=== PATIENT | female | born 1940 | race Caucasian/White ===

== ENCOUNTER 2019-02-16 08:43 | Emergency (ER) | payer OTHER ==
--- OUTSIDE RECORDS SUMMARY | 2019-02-16 08:46 | XMS REPORT ---
:1940 Author Organization eClinicalWorks Care Team Providers Name Role Phone Cameron Zavala Provider Role Unavailable Allergies, Adverse Reactions, Alerts Substance Reaction Event Type N.K.D.A. Info Not Available Non Drug Allergy Problems Problem Type Condition Code Onset Dates Condition Status Assessment Asymptomatic postmenopausal state Z78.0 Active Assessment Screening for osteoporosis Z13.820 Active Assessment Screening for colon cancer Z12.11 Active Assessment Screening mammogram, encounter for Z12.31 Active Problem HTN, goal below 130/80 I10 Active Assessment Tobacco use disorder F17.200 Active Problem Current moderate episode of major F32.1 Active depressive disorder without prior episode Problem Insomnia, unspecified type G47.00 Active Problem Controlled type 2 diabetes mellitus E11.9 Active without complication, without long-term current use of insulin Problem History of fall Z91.81 Active Problem History of CVA (cerebrovascular Z86.73 Active accident) without residual deficits Assessment GERD without esophagitis K21.9 Active Assessment History of CVA (cerebrovascular Z86.73 Active accident) without residual deficits Problem Anxiety F41.9 Active Assessment Loss of balance R26.89 Active Problem Bipolar affective disorder, F31.9 Active remission status unspecified Problem Loss of balance R26.89 Active Problem Tobacco use disorder F17.200 Active Problem GERD without esophagitis K21.9 Active Assessment History of fall Z91.81 Active Assessment Bipolar affective disorder, F31.9 Active remission status unspecified Assessment Insomnia, unspecified type G47.00 Active Assessment Controlled type 2 diabetes mellitus E11.9 Active without complication, without long-term current use of insulin Assessment HTN, goal below 130/80 I10 Active Assessment Encounter for wellness examination Z00.00 Active in adult Assessment Anxiety F41.9 Active Assessment Current moderate episode of major F32.1 Active depressive disorder without prior episode Medications Medication Code Code Instructions Start End Status Dosage System Date Date Omeprazole [facility] 40186617383 20 MG Orally Active 1 capsule Once a day Lisinopril [facility] 17643046986 20 MG Orally Active 1 tablet Once a day Metoprolol [facility] 38872794632 25 MG Orally Active 1 tablet Tartrate Twice a day with food Fluoxetine HCl [facility] 88751211050 40 MG Orally Active 1 capsule Once a day Trazodone HCl [facility] 32384758016 100 MG Orally Active 2 tablet Once a day at bedtime Alprazolam [facility] 30976533867 1 MG Orally Active 1 tablet Three times a day Amlodipine [facility] 15193701068 10 MG Orally Active 1 tablet Besylate Once a day Clopidogrel [facility] 68437397172 75 MG Orally Active 1 tablet Bisulfate Once a day Results No Known Results Summary Purpose eClinicalWorks Submission
--- OUTSIDE RECORDS SUMMARY | 2019-02-16 08:46 | XMS REPORT ---
:1940 Author Organization eClinicalWorks Care Team Providers Name Role Phone Lee Ann Zavalah Provider Role Unavailable Allergies, Adverse Reactions, Alerts Substance Reaction Event Type N.K.D.A. Info Not Available Non Drug Allergy Problems Problem Type Condition Code Onset Dates Condition Status Problem Current moderate episode of major F32.1 Active depressive disorder without prior episode Problem Insomnia, unspecified type G47.00 Active Problem Controlled type 2 diabetes mellitus E11.9 Active without complication, without long-term current use of insulin Problem History of fall Z91.81 Active Assessment History of CVA (cerebrovascular Z86.73 Active accident) without residual deficits Problem History of CVA (cerebrovascular Z86.73 Active accident) without residual deficits Assessment Loss of balance R26.89 Active Assessment Tobacco use disorder F17.200 Active Problem Anxiety F41.9 Active Problem Bipolar affective disorder, F31.9 Active remission status unspecified Problem Loss of balance R26.89 Active Problem Tobacco use disorder F17.200 Active Problem GERD without esophagitis K21.9 Active Assessment Controlled type 2 diabetes mellitus E11.9 Active without complication, without long-term current use of insulin Assessment History of fall Z91.81 Active Assessment GERD without esophagitis K21.9 Active Assessment Insomnia, unspecified type G47.00 Active Assessment Current moderate episode of major F32.1 Active depressive disorder without prior episode Assessment HTN, goal below 130/80 I10 Active Assessment Bipolar affective disorder, F31.9 Active remission status unspecified Assessment Anxiety F41.9 Active Problem HTN, goal below 130/80 I10 Active Medications Medication Code Code Instructions Start End Status Dosage System Date Date Omeprazole ND 98187315875 20 MG Orally Active 1 capsule Once a day Metoprolol ND 03363742067 25 MG Orally Active 1 tablet Tartrate Twice a day with food Trazodone HCl ND 21808508544 100 MG Orally Active 2 tablet Once a day at bedtime Lisinopril ND 32098281199 20 MG Orally Active 1 tablet Once a day Amlodipine ND 34746883787 10 MG Orally Active 1 tablet Besylate Once a day Alprazolam [facility] 52205817566 1 MG Orally Active 1 tablet Three times a day Fluoxetine HCl [facility] 27327376281 40 MG Orally Active 1 capsule Once a day Clopidogrel [facility] 94375617115 75 MG Orally Active 1 tablet Bisulfate Once a day Results No Known Results Summary Purpose eClinicalWorks Submission
[2019-02-16 10:44] LABS: Absolute Lymphocytes (CBC) 1.1 K/uL (0.7-4.9); Basophils % 0.1 % (0-1.3); Hematocrit 39.9 % (36.0-45.0); Lymphocytes % 6.5 % (15.3-44.8); MPV 7.7 fL (7.6-11.3); RBC Red Blood Cell Count 4.55 M/uL (3.86-4.86)
[2019-02-16 11:14] LABS: Albumin 3.5 g/dL (3.4-5.0); Bilirubin Direct 4.3 mg/dL (0-0.2); Potassium 3.7 mmol/L (3.5-5.1); Protein, Total 8.4 g/dL (6.4-8.2)
--- NOTE | 2019-02-16 11:15 | RAD REPORT ---
EXAM DESCRIPTION: US - Abdomen Exam Limited - 02/16/2019 10:59 am CLINICAL HISTORY: Abdominal pain. COMPARISON: None. FINDINGS: Multiple small gallstones. Gallbladder wall measures approximately 3 millimeters. The gall bladder is distended. . The common bile duct was poorly visualized IMPRESSION: Cholelithiasis with borderline gallbladder wall thickening Gallbladder distention
[2019-02-16] MEDS ORDERED: ONDANSETRON 4 MG/2 ML VIAL ONE (11:21)
[2019-02-16] MEDS ORDERED: METRONIDAZOLE 500mg IVPB 500 MG/100 ML BAG IV ONE (11:21)
[2019-02-16] MEDS ORDERED: FENTANYL CITR 100 MCG/2 ML ONE (11:21)
--- NOTE | 2019-02-16 11:32 | EDPHYS ---
Physician Documentation [facility] Name: Juanis Pyle Age: 78 yrs Sex: Female : 1940 Arrival Date: 02/16/2019 Time: 08:45 Bed 23 Private MD: Cameron Zavala ED Physician Shahriar Aj HPI: 02/16 10:28 This 78 yrs old Female presents to ER via Wheelchair with complaints of jr8 Epigastric Pain, Back Pain. 10:28 The patient presents with abdominal pain in the epigastric area, in the right upper jr8 quadrant, in the left upper quadrant. Onset: The symptoms/episode began/occurred gradually, 1 week(s) ago, and became worse last night. The symptoms radiate to back. Associated signs and symptoms: Pertinent positives: urinary frequency, Pertinent negatives: nausea, vomiting, and diarrhea, constipation, dysuria, fever, hematuria. The symptoms are described as constant. Modifying factors: The symptoms are alleviated by nothing, the symptoms are aggravated by food. Severity of pain: At its worst the pain was moderate in the emergency department the pain is unchanged. The patient has not experienced similar symptoms in the past. The patient has been recently seen by a physician: Dr. Ponce (GI) with similar presenting complaints, but the patient's symptoms have worsened. Upper abdominal pain that radiates around both sides to back, described as "all the way around" x 1 week with decreased appetite. Reports pain has gradually worsened and is worse since eating a pork chop last night. Denies NVD or constipation. Reports urinary frequency but denies dysuria or hematuria. Patient was seen by GI previously and given an unknown medication that the patient did not take. She is awaiting clearance from neurology (due to previous stroke history) for colonoscopy. Historical: - Allergies: 09:06 No Known Allergies; hb - Home Meds: 10:20 alprazolam 1 mg Oral tab 1 tab 3 times per day [Active]; amlodipine 10 mg tab 1 tab tw2 once daily [Active]; Centrum Silver 400-250 mcg oral chew [Active]; clopidogrel 75 mg oral tab 1 tab once daily [Active]; Excedrin Extra Strength 250-250-65 mg oral tab [Active]; fluoxetine 40 mg Oral cap 1 cap once daily [Active]; lisinopril 10 mg Oral tab 1 tab once daily [Active]; metoprolol succinate-hydrochlorothiazide oral 25 mg/12.5 mg oral 1 tab once daily [Active]; Fish Oil 500 mg oral cpDR [Active]; omeprazole 20 mg Oral cpDR 1 cap once daily [Active]; trazodone 100 mg Oral tab 1 tab 3 times per day [Active]; - PMHx: 10:20 Hypertension; CVA; tw2 - Immunization history:: Adult Immunizations up to date. - Social history:: Smoking status: Patient/guardian denies using tobacco. - Ebola Screening: : No symptoms or risks identified at this time. ROS: 10:28 Constitutional: Negative for fever, chills, and weight loss, Eyes: Negative for injury, jr8 pain, redness, and discharge, ENT: Negative for injury, pain, and discharge, Cardiovascular: Negative for chest pain, palpitations, and edema, Respiratory: Negative for shortness of breath, cough, wheezing, and pleuritic chest pain, MS/Extremity: Negative for injury and deformity, Skin: Negative for injury, rash, and discoloration, Neuro: Negative for headache, weakness, numbness, tingling, and seizure. 10:28 Abdomen/GI: Positive for abdominal pain, anorexia, Negative for nausea, vomiting, and diarrhea, constipation. 10:28 Back: Positive for radiated pain, Negative for flank pain. 10:28 : Positive for urinary frequency, small amounts, Negative for hematuria, pelvic pain, flank pain, burning with urination, difficulty urinating, foul smelling urine. Exam: 10:28 Constitutional: This is a well developed, well nourished patient who is awake, alert, jr8 and in no acute distress. Head/Face: Normocephalic, atraumatic. Cardiovascular: Regular rate and rhythm with a normal S1 and S2. No gallops, murmurs, or rubs. Normal PMI, no JVD. No pulse deficits. Respiratory: Lungs have equal breath sounds bilaterally, clear to auscultation and percussion. No rales, rhonchi or wheezes noted. No increased work of breathing, no retractions or nasal flaring. Skin: Warm, dry with normal turgor. Normal color with no rashes, no lesions, and no evidence of cellulitis. MS/ Extremity: Pulses equal, no cyanosis. Neurovascular intact. Full, normal range of motion. Neuro: Awake and alert, GCS 15, oriented to person, place, time, and situation. Motor strength 5/5 in all extremities. Sensory grossly intact. 10:28 Abdomen/GI: Inspection: abdomen appears normal, Bowel sounds: normal, Palpation: soft, in all quadrants, moderate abdominal tenderness, in the epigastric area and right upper quadrant, no appreciated organomegaly, Indicators: Gutierrez's sign is positive. 10:28 Back: Exam negative for CVA tenderness, vertebral tenderness. 10:28 Psych: Behavior/mood is cooperative, Affect is flat. Vital Signs: 09:05 BP 110 / 57; Pulse 80; Resp 16; Temp 97.9; Pulse Ox 100% on R/A; Weight 77.11 kg; hb Height 5 ft. 1 in. (154.94 cm); Pain 10/10; 10:14 BP 140 / 73; Pulse 68; Resp 17; Pulse Ox 95% on R/A; tw2 11:29 BP 104 / 79; Pulse 71; Resp 17; Pulse Ox 95% on R/A; tw2 12:16 BP 135 / 79; Pulse 69; Resp 17; Pulse Ox 95% on R/A; Pain 8/10; tw2 13:20 BP 111 / 61; Pulse 70; Resp 17; Pulse Ox 97% on R/A; Pain 6/10; tw2 09:05 Body Mass Index 32.12 (77.11 kg, 154.94 cm) hb MDM: 10:14 Patient medically screened. [facility] 11:30 Data reviewed: vital signs, nurses notes, lab test result(s), radiologic studies, [facility] ultrasound. Data interpreted: Pulse oximetry: on room air is 95 %. Interpretation: normal. Counseling: I had a detailed discussion with the patient and/or guardian regarding: the historical points, exam findings, and any diagnostic results supporting the discharge/admit diagnosis, lab results, the need to transfer to another facility, [facility] does not immediately have the required specialist. 02/16 10:28 Order name: Basic Metabolic Panel; Complete Time: 11:16 8 02/16 10:28 Order name: CBC with Diff; Complete Time: 12:54 8 02/16 10:28 Order name: Creatinine for Radiology; Complete Time: 11:13 02/16 10:28 Order name: Hepatic Function; Complete Time: 11:16 02/16 10:28 Order name: Lipase; Complete Time: 11:16 02/16 12:44 Order name: Manual Differential; Complete Time: 12:54 EDMS 02/16 09:58 Order name: EKG; Complete Time: 09:58 ss 02/16 10:28 Order name: US Abdomen Limited; Complete Time: 11:16 02/16 09:58 Order name: EKG - Nurse/Tech; Complete Time: 10:14 ss 02/16 10:28 Order name: IV Saline Lock; Complete Time: 10:48 02/16 10:28 Order name: Labs collected and sent; Complete Time: 10:48 02/16 11:57 Order name: NPO; Complete Time: 12:02 Administered Medications: 11:24 Drug: Zofran 4 mg Route: IVP; Site: left forearm; tw2 12:04 Follow up: Response: No adverse reaction tw2 11:26 Drug: fentaNYL (PF) 25 mcg Route: IVP; Site: right forearm; tw2 12:04 Follow up: Response: No adverse reaction; Pain is unchanged, physician notified tw2 11:28 Drug: Flagyl 500 mg Volume: 100 ml; Route: IVPB; Rate: 200 ml/hr; Infused Over: 30 tw2 mins; Site: right forearm; 11:53 Follow up: Response: No adverse reaction; IV Status: Completed infusion tw2 11:55 Drug: Mefoxin 1 grams Route: IVPB; Infused Over: 5 mins; Site: left forearm; tw2 12:03 Follow up: Response: No adverse reaction; No adverse reaction, IVP available only from tw2 pharmacy; IV Status: Completed infusion 12:10 Drug: fentaNYL (PF) 50 mcg Route: IVP; Site: left forearm; tw2 12:45 Follow up: Response: No adverse reaction; Pain is decreased tw2 13:55 Drug: fentaNYL (PF) 25 mcg Route: IVP; Site: left forearm; tw2 13:57 Follow up: Response: No adverse reaction; Pain is decreased tw2 Disposition: 14:21 Co-signature as Attending Physician, Shahriar Aj MD I agree with the assessment and kdr plan of care. Disposition: 02/16/19 11:31 Transfer ordered to [facility]. Diagnosis are Cholelithiasis, Cholecystitis, Choledocholithiasis. - Reason for transfer: Higher level of care. - Accepting physician is [facility]. - Condition is Stable. - Problem is new. - Symptoms are unchanged. Signatures: Dispatcher [employer] EDMS Shahriar Aj MD MD [facility] Anna Brady RN RN Charles Garcia PA PA jr8 Kamila Randall RN RN Alessia Anaya RN RN tw2 Corrections: (The following items were deleted from the chart) 13:59 11:31 02/16/2019 11:31 Transfer ordered to [facility]. Diagnosis is tw2 Cholelithiasis; Cholecystitis; Choledocholithiasis. Reason for transfer: Higher level of care. Accepting physician is [facility]. Condition is Stable. Problem is new. Symptoms are unchanged. jr8
--- NOTE | 2019-02-16 11:32 | ER ---
Nurse's Notes [facility] Name: Juanis Pyle Age: 78 yrs Sex: Female : 1940 Arrival Date: 02/16/2019 Time: 08:45 Bed 23 Private MD: Cameron Zavala Diagnosis: Cholelithiasis;Cholecystitis;Choledocholithiasis Presentation: 02/16 09:04 Presenting complaint: Upper abdominal pain x 2 weeks, worse over last 2 days, N/V hb today. Denies fever. Transition of care: patient was not received from another setting of care. Onset of symptoms is unknown. Risk Assessment: Do you want to hurt yourself or someone else? Patient reports no desire to harm self or others. Initial Sepsis Screen: Does the patient meet any 2 criteria? No. Patient's initial sepsis screen is negative. Does the patient have a suspected source of infection? No. Patient's initial sepsis screen is negative. Care prior to arrival: None. 09:04 Method Of Arrival: Wheelchair hb 09:04 Acuity: DAVID 3 hb Historical: - Allergies: 09:06 No Known Allergies; hb - Home Meds: 10:20 alprazolam 1 mg Oral tab 1 tab 3 times per day [Active]; amlodipine 10 mg tab 1 tab tw2 once daily [Active]; Centrum Silver 400-250 mcg oral chew [Active]; clopidogrel 75 mg oral tab 1 tab once daily [Active]; Excedrin Extra Strength 250-250-65 mg oral tab [Active]; fluoxetine 40 mg Oral cap 1 cap once daily [Active]; lisinopril 10 mg Oral tab 1 tab once daily [Active]; metoprolol succinate-hydrochlorothiazide oral 25 mg/12.5 mg oral 1 tab once daily [Active]; Fish Oil 500 mg oral cpDR [Active]; omeprazole 20 mg Oral cpDR 1 cap once daily [Active]; trazodone 100 mg Oral tab 1 tab 3 times per day [Active]; - PMHx: 10:20 Hypertension; CVA; tw2 - Immunization history:: Adult Immunizations up to date. - Social history:: Smoking status: Patient/guardian denies using tobacco. - Ebola Screening: : No symptoms or risks identified at this time. Screenin:07 Abuse screen: Denies threats or abuse. Nutritional screening: No deficits noted. tw2 Tuberculosis screening: No symptoms or risk factors identified. Fall Risk None identified. Assessment: 10:20 General: Appears uncomfortable, Behavior is calm, cooperative, appropriate for age, tw2 quiet. Pain: Complains of pain in abdomen. Neuro: Level of Consciousness is awake, alert, obeys commands, Oriented to person, place, time, situation. Cardiovascular: Heart tones S1 S2 Patient's skin is warm and dry. Respiratory: Airway is patent Respiratory effort is even, unlabored, Respiratory pattern is regular, symmetrical, Breath sounds are clear bilaterally. GI: Abdomen is flat, Bowel sounds present X 4 quads. Abd is soft X 4 quads Reports lower abdominal pain, upper abdominal pain, nausea, Parent/caregiver reports the patient having "not constipation but she just goes a little bit every day, i have been giving her miralax to help, and she was supposed to have a colonoscopy but we need to get to the medication specialist for clearance before they will do it". : No signs and/or symptoms were reported regarding the genitourinary system. EENT: No signs and/or symptoms were reported regarding the EENT system. Derm: No signs and/or symptoms reported regarding the dermatologic system. Musculoskeletal: Range of motion: intact in all extremities. 11:29 Reassessment: No changes from previously documented assessment. Patient and/or family tw2 updated on plan of care and expected duration. Pain level reassessed. Patient is alert, oriented x 3, equal unlabored respirations, skin warm/dry/pink. 12:17 Reassessment: No changes from previously documented assessment. Patient and/or family tw2 updated on plan of care and expected duration. Pain level reassessed. Patient is alert, oriented x 3, equal unlabored respirations, skin warm/dry/pink. 13:20 Reassessment: Patient appears in no apparent distress at this time. Patient and/or tw2 family updated on plan of care and expected duration. Pain level reassessed. Patient is alert, oriented x 3, equal unlabored respirations, skin warm/dry/pink. Patient states feeling better. 13:58 Reassessment: Patient appears in no apparent distress at this time. No changes from tw2 previously documented assessment. Patient and/or family updated on plan of care and expected duration. Pain level reassessed. Patient is alert, oriented x 3, equal unlabored respirations, skin warm/dry/pink. Vital Signs: 09:05 BP 110 / 57; Pulse 80; Resp 16; Temp 97.9; Pulse Ox 100% on R/A; Weight 77.11 kg; hb Height 5 ft. 1 in. (154.94 cm); Pain 10/10; 10:14 BP 140 / 73; Pulse 68; Resp 17; Pulse Ox 95% on R/A; tw2 11:29 BP 104 / 79; Pulse 71; Resp 17; Pulse Ox 95% on R/A; tw2 12:16 BP 135 / 79; Pulse 69; Resp 17; Pulse Ox 95% on R/A; Pain 8/10; tw2 13:20 BP 111 / 61; Pulse 70; Resp 17; Pulse Ox 97% on R/A; Pain 6/10; tw2 09:05 Body Mass Index 32.12 (77.11 kg, 154.94 cm) hb ED Course: 08:45 Patient arrived in ED. as 08:46 Cameron Zavala DO is Private Physician. as 09:05 Triage completed. hb 09:05 Arm band placed on. hb 10:07 Alessia Anaya, TICO is Primary Nurse. tw2 10:07 Bed in low position. Call light in reach. Side rails up X 1. Adult w/ patient. Cardiac tw2 monitor on. Pulse ox on. NIBP on. 10:13 Charles Garcia PA is PHCP. jr8 10:13 Shahriar Aj MD is Attending Physician. jr8 10:19 EKG done, by telemetry technician. reviewed by Shahriar Aj MD. sm3 10:25 Inserted saline lock: 22 gauge in left forearm, using aseptic technique. Blood tw2 collected. 10:59 US Abdomen Limited In Process Unspecified. EDMS 11:22 initiated transfer with Aileen at the [facility]. eb 11:[address] Rosenberg the GI demonstrator knitting for [facility] with Charles WEINBERG for patient transfer eb consultation. 12:02 connected the hospitalist demonstrator knitting for [facility] Dr. Pacheco with Charles WEINBERG for eb patient transfer consultation. 12:13 administrative approval given by Aileen Hassan RN/ patient has been accepted to [facility] Bed 1527/ Tara Blancas has accepted the patient in transfer/ report to be called to [phone]. 13:58 No provider procedures requiring assistance completed. Patient transferred, IV remains tw2 in place. Administered Medications: 11:24 Drug: Zofran 4 mg Route: IVP; Site: left forearm; tw2 12:04 Follow up: Response: No adverse reaction tw2 11:26 Drug: fentaNYL (PF) 25 mcg Route: IVP; Site: right forearm; tw2 12:04 Follow up: Response: No adverse reaction; Pain is unchanged, physician notified tw2 11:28 Drug: Flagyl 500 mg Volume: 100 ml; Route: IVPB; Rate: 200 ml/hr; Infused Over: 30 tw2 mins; Site: right forearm; 11:53 Follow up: Response: No adverse reaction; IV Status: Completed infusion tw2 11:55 Drug: Mefoxin 1 grams Route: IVPB; Infused Over: 5 mins; Site: left forearm; tw2 12:03 Follow up: Response: No adverse reaction; No adverse reaction, IVP available only from tw2 pharmacy; IV Status: Completed infusion 12:10 Drug: fentaNYL (PF) 50 mcg Route: IVP; Site: left forearm; tw2 12:45 Follow up: Response: No adverse reaction; Pain is decreased tw2 13:55 Drug: fentaNYL (PF) 25 mcg Route: IVP; Site: left forearm; tw2 13:57 Follow up: Response: No adverse reaction; Pain is decreased tw2 Outcome: 11:31 ER care complete, transfer ordered by MD. grady 13:58 Transferred by ground EMS to [facility], Note: report to TICO Arreguin tw2 13:58 Condition: stable 13:58 Instructed on the need for transfer. 13:59 Patient left the ED. tw2 Signatures: Dispatcher [employer] Paola Bishop Josh, PA PA jr8 Kamila Randall, TICO DOSHI Alessia Anaya RN RN tw2 Sun Romero Shakira 3
[2019-02-16] MEDS ORDERED: CEFOXITIN/SWI 1gm 1 GM/10 ML SYR IV ONE (11:45)
[2019-02-16 12:45] LABS: Platelet Estimate ADEQ
[2019-02-16 12:53] LABS: Blood Morphology Comment NOT SEEN (NOT SEEN)
--- NOTE | 2019-02-16 13:00 | EKG ---
Test Date: 2019-02-16 Test Time: 10:10:31 Washtub Worker Helper: KAVYA MEASUREMENT RESULTS: Intervals: Rate: 70 HI: 228 QRSD: 86 QT: 416 QTc: 449 Cushman: P: 54 HI: 228 QRS: -21 T: 72 INTERPRETIVE STATEMENTS: Sinus rhythm with 1st degree AV block Otherwise normal ECG No previous ECG available for comparison Electronically Signed On 02-16-19 12:59:38 CDT by Selvin Lewis
== END 2019-02-16 13:59 | disposition short-term general hospital (02) ==
LOC: ER 08:43
DX: K80.10 Calculus of gallbladder with chronic cholecystitis without obstruction (principal); K80.40 Calculus of bile duct with cholecystitis, unspecified, without obstruction; I10 Essential (primary) hypertension; Z86.73 Personal history of transient ischemic attack (TIA), and cerebral infarction without residual deficits
CPT/HCPCS: 93005; 85025; 80048; 36415; 80076; 83690; 76705; 99285; J3010; J2405

== ENCOUNTER 2020-01-25 11:07 | Emergency (ER) | payer OTHER ==
--- OUTSIDE RECORDS SUMMARY | 2020-01-25 12:08 | XMS REPORT | Clinical Summary ---
:1940 Author Organization [facility] Address [address] [place] [address] Care Team Providers Name Role Phone Unavailable Primary Care Provider Unavailable Allergies No Known Allergies Medications Medication Sig Dispensed Refills Start Date End Date Status omeprazole (PRILOSEC) Take 20 mg by 12/28/2018 Active 20 MG capsule mouth daily. ALPRAZolam (XANAX) 1 Take 1 mg by 02/01/2019 Active MG tablet mouth 3 (three) times daily. traZODone (DESYREL) Take 100 mg by 01/30/2019 Active 100 MG tablet mouth nightly. metoprolol Take 25 mg by 0 01/28/2019 Acti ve (LOPRESSOR) 25 MG mouth 2 (two) tablet times daily with breakfast and dinner. amLODIPine (NORVASC) Take 10 mg by 0 01/24/2019 Active 10 MG tablet mouth daily. FLUoxetine (PROZAC) Take 80 mg by 01/30/2019 Active 40 MG capsule mouth every morning. lisinopril Take 20 mg by 3 01/27/2019 Acti ve (PRINIVIL,ZESTRIL) 20 mouth daily. MG tablet clopidogrel (PLAVIX) Take 75 mg by 0 02/06/2019 Active 75 mg tablet mouth daily. ondansetron Take 1 tablet (4 20 tablet 0 02/21/2019 02/28/2019 (ZOFRAN-ODT) 4 MG mg total) by disintegrating tablet mouth every 8 (eight) hours as needed for up to 7 days. polyethylene glycol Take 17 g by 14 each 0 02/21/20192018 (GLYCOLAX) 17 gram mouth daily as packet needed (Constipation) for up to 3 days. traMADol (ULTRAM) 50 Take 1 tablet 30 tablet 0 02/21/201902/16 mg tablet (50 mg total) by mouth every 6 (six) hours as needed for up to 10 days. Max Daily Amount: 200 mg Active Problems Problem Noted Date Gall bladder stones 02/16/2019 Encounters Date Type Specialty Care Team Description 02/20/2019 Surgery Marie Green,CH CHRISTINA Toussaint MD YSTECTOMY 02/20/2019 Anesthesia Event Solitario Vieira MD 02/17/2019 Anesthesia Event Gastroenterology Eliazar Leonardo MD 02/17/2019 Surgery Gastroenterology Tab Strickland ERCP M. 02/16/2019 - Hospital Encounter General Internal Gadicherla, Gall bladder stones; 02/21/2019 Medicine Saundra Gallstone pancr eatitis; Muralinath, Cholangitis Messi Keene MD after 01/24/2019 Social History Tobacco Use Types Packs/Day Years Used Date Never Assessed Sex Assigned at Date Recorded Not on file Job Start Date Occupation Industry Not on file Not on file Not on file Travel History Travel Start Travel End No recent travel history available. Last Filed Vital Signs Vital Sign Reading Time Taken Blood Pressure 138/65 02/21/2019 8:44 AM CDT Pulse 87 02/21/2019 8:44 AM CDT Temperature 36.3 C (97.4 F) 02/21/2019 8:44 AM CDT Respiratory Rate 17 02/21/2019 8:44 AM CDT Oxygen Saturation 92% 02/21/2019 8:44 AM CDT Inhaled Oxygen Concentration - - Weight - - Height - - Body Mass Index - - Plan of Treatment Not on file Procedures Procedure Name Priority Date/Time Associated Diagnosis Comme nts REPORT OF PROCEDURE - 02/22/2019 11:10 ENDOSCOPY SCAN AM CDT RHYTHM STRIP - SCAN 02/22/2019 11:10 AM CDT TRANSFUSION SERVICE 02/21/2019 6:00 REPORT - SCAN PM CDT CBC W/PLT COUNT & Routine 02/21/2019 5:38 Result s for this AUTO DIFFERENTIAL AM CDT procedure are in the results section. HEPATIC FUNCTION Routine 02/21/2019 5:38 Results for this PANEL AM CDT procedure are i n the results section. BASIC METABOLIC PANEL Routine 02/21/2019 5:38 Re sults for this (7) AM CDT procedure are i n the results section. CBC W/PLT COUNT & Routine 02/21/2019 5:38 Result s for this AUTO DIFFERENTIAL AM CDT procedure are in the results section. TISSUE EXAM AP Routine 02/20/2019 2:48 Results for this PM CDT procedure are i n the results section. LAPAROSCOPY,CHOLECYST 02/20/2019 2:21 Gall stone ECTOMY PM CDT pancreatitis ABORH, MANUAL STAT 02/20/2019 6:36 Results fo r this AM CDT procedure are i n the results section. TYPE AND SCREEN, Routine 02/20/2019 5:56 Results for this AUTOMATED AM CDT procedure are i n the results section. COMPREHENSIVE Routine 02/20/2019 5:56 Results fo r this METABOLIC PANEL AM CDT procedure ar e in the results section. CBC W/PLT COUNT & Routine 02/19/2019 5:25 Result s for this AUTO DIFFERENTIAL AM CDT procedure are in the results section. COMPREHENSIVE Routine 02/19/2019 5:25 Results fo r this METABOLIC PANEL AM CDT procedure ar e in the results section. CBC W/PLT COUNT & Routine 02/19/2019 5:25 Result s for this AUTO DIFFERENTIAL AM CDT procedure are in the results section. COMPREHENSIVE Routine 02/18/2019 1:40 Results fo r this METABOLIC PANEL PM CDT procedure ar e in the results section. CBC W/PLT COUNT & Routine 02/18/2019 5:20 Result s for this AUTO DIFFERENTIAL AM CDT procedure are in the results section. CBC W/PLT COUNT & Routine 02/18/2019 5:20 Result s for this AUTO DIFFERENTIAL AM CDT procedure are in the results section. REPORT OF PROCEDURE - 02/17/2019 3:46 ENDOSCOPY URL PM CDT ERCP,BALLOON SWEEPING 02/17/2019 2:00 Cholangitis PM CDT Special Needs REQ:TF PROCEDURE W/ C-ARM 02/17/2019 2:00 PM CDT Cholangitis Special Needs REQ:TF ERCP 02/17/2019 2:00 PM CDT Cholangitis Special Needs REQ:TF URINALYSIS W/ REFLEX URINE STAT 02/17/2019 7:16 AM CDT Results for this CULTURE procedure are i n the results section . CBC W/PLT COUNT & AUTO Routine 02/17/2019 5:39 AM CDT Results for this DIFFERENTIAL procedure are i n the results section . CBC W/PLT COUNT & AUTO Routine 02/17/2019 5:39 AM CDT Results for this DIFFERENTIAL procedure are i n the results section . COMPREHENSIVE METABOLIC Routine 02/17/2019 5:39 AM CDT Results for this PANEL procedure are i n the results section . CT ABDOMEN/PELVIS WITH IV STAT 02/16/2019 10:33 PM CDT Results for this CONTRAST procedure are i n the results section . CBC W/PLT COUNT & AUTO STAT 02/16/2019 5:31 PM CDT Results for this DIFFERENTIAL procedure are i n the results section . LIPASE STAT 02/16/2019 5:31 PM CDT Resu lts for this procedure are i n the results section . B-TYPE NATRIURETIC FACTOR STAT 02/16/2019 5:31 PM CDT Results for this (BNP) procedure are i n the results section . COMPREHENSIVE METABOLIC STAT 02/16/2019 5:31 PM CDT Results for this PANEL procedure are i n the results section . CBC W/PLT COUNT & AUTO STAT 02/16/2019 5:31 PM CDT Results for this DIFFERENTIAL procedure are i n the results section . BLOOD CULTURE STAT 02/16/2019 5:30 PM CDT Res ults for this procedure are i n the results section . after 01/24/2019 Results EKG-SCANNED (02/22/2019 11:10 AM CDT) Narrative Performed At This result has an attachment that is no t available. RHYTHM STRIP - SCAN (02/22/2019 11:10 AM CDT) Narrative Performed At This result has an attachment that is no t available. TRANSFUSION SERVICE REPORT - SCAN (02/21/2019 6:00 PM CDT) Narrative Performed At This result has an attachment that is no t available. CBC with platelet count + automated diff (02/21/2019 5:38 AM CDT)Only the most recent of5 resultswithin the time period is included. WBC 13.4 (H) 3.5 - 10.5 K/L [facility] RBC 3.88 (L) 3.93 - 5.22 M/L [facility] Hemoglobin 11.3 11.2 - 15.7 GM/DL [facility] Hematocrit 36.4 34.1 - 44.9 % [facility] MCV 93.8 79.4 - 94.8 fL [facility] MCH 29.1 25.6 - 32.2 pg [facility] MCHC 31.0 (L) 32.2 - 35.5 GM/DL [facility] RDW 16.6 (H) 11.7 - 14.4 % [facility] Platelets 333 150 - 450 K/CU MM [facility] MPV 9.1 (L) 9.4 - 12.[address] [facility] nRBC 0 0 - 0 /100 WBC [facility] % Neutros 66 % [facility] % Lymphs 25 % [facility] % Monos 6 % [facility] AL[facility] % Eos 2 % [facility] ALTH [facility] % Baso 1 % [facility] # Neutros 8.85 (H) 1.56 - 6.13 K/L [facility] # Lymphs 3.29 1.18 - 3.74 K/L [facility] # Monos 0.82 (H) 0.24 - 0.36 K/L [facility] # Eos 0.24 0.04 - 0.36 K/L [facility] # Baso 0.07 0.01 - 0.08 K/L [facility] Immature Granulocytes-Relative 1 0 - 1 % C [facility] Specimen Blood Performing Organization Address City/State/Zipcode Phone Number [facility] [address] [place] [address] CENTER Hepatic function panel (02/21/2019 5:38 AM CDT) Protein, Total 6.5 6.0 - 8.3 gm/dL [facility] AL[facility] Albumin 3.3 (L) 3.5 - 5.0 g/dL [facility] Total Bilirubin 1.6 (H) 0.2 - 1.2 mg/dL [facility] Bilirubin, Direct 1.2 (H) 0.1 - 0.5 mg/dL [facility] Alkaline Phosphatase 365 (H) 40 - 150 U/L [facility] AST 63 (H) 5 - 34 U/L [facility] ALT 94 (H) 6 - 55 U/L [facility] Specimen Blood Performing Organization Address City/[facility]/Zipcode Phone Number [facility] [address] [place] [address] CENTER Basic Metabolic Panel (02/21/2019 5:38 AM CDT) Sodium 138 136 - 145 meq/L [facility] Potassium 3.8 3.5 - 5.1 meq/L [facility] Chloride 102 98 - 107 meq/L [facility] ALTH [facility] CO2 28 22 - 29 meq/L [facility] BUN 6 (L) 7 - 21 mg/dL [facility] Creatinine 0.63 0.57 - 1.25 mg/dL [facility] Glucose 104 70 - 105 mg/dL [facility] Calcium 8.6 8.4 - 10.2 mg/dL [facility] EGFR 92Comment: ESTIMATED GFR IS mL/min/1.73 sq m [facility] NOT ACCURATE CREATININE [facility] CLEARANCE IN PREDICTING GLOMERULAR FILTRATION RATE. ESTIMATED GFR IS NOT APPLICABLE FOR DIALYSIS PATIENTS. Specimen Blood Performing Organization Address City/[facility]/Zipcode Phone Number [facility] [address] [place] [address] [place] Tissue Exam (02/20/2019 2:48 PM CDT) Case Report Surgical Pathology Report Case: [id number] [facility] Authorizing Provider:Marie Benavidez MD Collected: 02/20/2019 1448 [facility] Ordering Location: [facility] Received:02/21/2019 1406 SERVICES Pathologist: Mignon Winter MD Specimen:Gallbladder DIAGNOSIS GALLBLADDER, CHOLECYSTECTOMY: CH I [facility] - CHRONIC CHOLECYSTITIS AND CHOLELITHIASIS [facility] - ONE BENIGN LYMPH NODE Signing Pathologist Direct Phone Line: CPT Code(s) [address] [facility] ALTH [facility] ER CLINICAL HISTORY Gallstone pancreatitis [facility] SPECIMEN SOURCE GALLBLADDER [facility] ALTH [facility] ER GROSS DESCRIPTION Received in formalin labeled C [facility] "gallbladder" consists of a [facility] 9.5 x 3 x 1.5 cm previously intact gallbladder with a 0.8 x 0.4 cm cystic duct. The serosa is hirsch-pink, hyperemic, and smooth with prominent vessels and a partially cauterized area. The serosa along the fundus shows fibrinopurulent patchy exudate. The specimen is opened to show hirsch-pink and velvety mucosa with approximately 5 cc of bile and 1 cm aggregate of multiple small black gallstones. The wall thickness is 0.1 cm. The specimen is serially sectioned, and no lesions are grossly identified. Painting Technician sections along with the cystic duct margin and one lymph node are submitted in cassettes A1-A2. TH/ew MICROSCOPIC DESCRIPTION Performed. [facility] ER Specimen Tissue Performing Organization Address City/State/Zipcode Phone Number [address] [address] CENTER ABORH, manual (02/20/2019 6:36 AM CDT) ABO Grouping O [facility] Rh Factor POS [facility] Specimen Blood Performing Organization Address City/State/Zipcode Phone Number [place] [phone] Type and screen, automated (02/20/2019 5:56 AM CDT) ABO/RH AUTOMATED (BEAKER) O POSITIVE [facility] Ab Scrn NEGATIVE [facility] Specimen Blood Performing Organization Address City/State/Zipcode Phone Number [facility] [address] [place] [address] Comprehensive metabolic panel (02/20/2019 5:56 AM CDT)Only the most recent of5 resultswithin the time period is included. Protein, Total 7.3 6.0 - 8.3 gm/dL [facility] Albumin 3.6 3.5 - 5.0 g/dL [facility] Alkaline Phosphatase 457 (H) 40 - 150 U/L [facility] Total Bilirubin 1.8 (H) 0.2 - 1.2 mg/dL [facility] Sodium 139 136 - 145 meq/L [facility] ER Potassium 4.0 3.5 - 5.1 meq/L [facility] ER Chloride 100 98 - 107 meq/L [facility] ALTH [facility] CO2 30 (H) 22 - 29 meq/L [facility] BUN 6 (L) 7 - 21 mg/dL [facility] HE ALTH [facility] ER Creatinine 0.71 0.57 - 1.25 mg/dL [facility] Glucose 116 (H) 70 - 105 mg/dL [facility] Calcium 9.5 8.4 - 10.2 mg/dL [facility] AST 71 (H) 5 - 34 U/L [facility] ALT 113 (H) 6 - 55 U/L [facility] ER EGFR 80Comment: ESTIMATED GFR mL/min/1.73 sq m [facility] IS NOT ACCURATE [facility] CREATININE CLEARANCE IN PREDICTING GLOMERULAR FILTRATION RATE. ESTIMATED GFR IS NOT APPLICABLE FOR DIALYSIS PATIENTS. Specimen Blood Performing Organization Address [facility] Phone Number [facility] [address] [place] [phone] [place] REPORT OF PROCEDURE - ENDOSCOPY URL (02/17/2019 3:46 PM CDT) Narrative Performed At This result has an attachment that is no t available. Urinalysis w/Microscopic + Reflex to Culture (02/17/2019 7:16 AM CDT) Color, UA Yellow [facility] Clarity, UA Clear [facility] Specific Falcon, UA 1.030 1.001 - [address].035 [facility] pH, UA 6.0 5.0 - 8.[address] [facility] [address] [facility] Protein, UA Negative Negative [facility] Glucose, UA Negative Negative [facility] Ketones, UA Negative Negative [facility] Bilirubin, UA Positive (A) Negative [facility] Blood, UA Negative Negative [facility] Nitrite, UA Negative Negative [facility] Leukocytes, UA Negative Negative [facility] Urobilinogen, UA 0.2 0.2 - 1.0 mg/dL [facility] RBC, UA 1 /HPF [facility] WBC, UA 1 /HPF [facility] Specimen Source [facility] Specimen Urine Performing Organization Address [facility]/Zipcode Phone Number [place] [phone] [place] [address] abdomen/pelvis with IV contrast (02/16/2019 10:33 PM CDT) Specimen Narrative Performed At FINAL REPORT [employer] [facility] INDICATION: Abdominal pain. COMPARISON: None. TECHNIQUE: CT of the Abdomen and Pelvis WITH intrav enous contrast. Enteric contrast was used. The exam was performed according to our department dose-optimization protocol, which includes automated expos ure control, adjustments of mA and kV according to patient size. Ite rative reconstructions are also sometimes employed. FINDINGS: No bowel obstruction or infection is dem onstrated. Appendix not identified; no secondary evidence of star endicitis. Diverticuli of the sigmoid colon without diverticulitis. No peritoneal free fluid or free air. The common bile duct is dilated measurin g 11 mm in diameter and there is a 5 mm stone at the ampulla. There is hyperenhancement of the biliary epithelium suggesting cholangiti s. Gallbladder mildly distended. No intrahepatic biliary ducta l dilatation. No evidence of cholecystitis. No pancreatitis. Liver, spleen, adrenal glands unremarkab le. Left kidney exophytic cyst measures 6 cm. No renal mass. Bladd er mildly distended and no bladder wall abnormality. Uterus unremar kable. Atherosclerosis of the abdominal aorta a nd iliac arteries without aneurysm. No suspicious osseous lesion d emonstrated. Lumbar vertebral moderate degenerative changes noted. Bib asilar subsegmental atelectasis. IMPRESSION: Obstructing 5 mm biliary stone in the am patrice, with possible cholangitis. No cholecystitis or pancrea titis. Signed: Christiano Hardy MD Report Verified Date/Time:02/16/2019 23:53:17 Reading Location: [address] Procedure Note Interface, External Ris In - 02/16/2019 11:55 PM CDT FINAL REPORT INDICATION: Abdominal pain. COMPARISON: None. TECHNIQUE: CT of the Abdomen and Pelvis WITH intrav enous contrast. Enteric contrast was used. The exam was performed according to our department dose-optimization protocol, which includes automated expos ure control, adjustments of mA and kV according to patient size. Ite rative reconstructions are also sometimes employed. FINDINGS: No bowel obstruction or infection is dem onstrated. Appendix not identified; no secondary evidence of star endicitis. Diverticuli of the sigmoid colon without diverticulitis. No peritoneal free fluid or free air. The common bile duct is dilated measurin g 11 mm in diameter and there is a 5 mm stone at the ampulla. There is hyperenhancement of the biliary epithelium suggesting cholangiti s. Gallbladder mildly distended. No intrahepatic biliary ducta l dilatation. No evidence of cholecystitis. No pancreatitis. Liver, spleen, adrenal glands unremarkab le. Left kidney exophytic cyst measures 6 cm. No renal mass. Bladd er mildly distended and no bladder wall abnormality. Uterus unremar kable. Atherosclerosis of the abdominal aorta a nd iliac arteries without aneurysm. No suspicious osseous lesion d emonstrated. Lumbar vertebral moderate degenerative changes noted. Bib asilar subsegmental atelectasis. IMPRESSION: Obstructing 5 mm biliary stone in the am patrice, with possible cholangitis. No cholecystitis or pancrea titis. Signed: Christiano Hardy MD Report Verified Date/Time: 02/16/2019 2 3:53:17 Reading Location: [address] Performing Organization Address [facility]/Zipcode Phone Number [facility] B-type Natriuretic Factor (BNP) (02/16/2019 5:31 PM CDT) BNP 53 0 - 100 pg/mL [facility] Specimen Blood Performing Organization Address [facility] Phone Number [address] [address] CENTER Lipase (02/16/2019 5:31 PM CDT) Lipase 90 (H) 8 - 78 U/L [facility] Specimen Blood Narrative Performed At Specimen moderately icteric [facility] Performing Organization Address [facility] Phone Number [address] [address] CENTER Blood culture (02/16/2019 5:30 PM CDT) Result No growth in [address] [facility] Specimen Blood Performing Organization Address City/State/Zipcode Phone Number [facility] [address] [place] [address] CENTER after 01/24/2019 Insurance Payer Benefit Plan / Group Subscriber ID Type Phone A ddress [employer] - MEDICARE MGD [employer] MEDICARE ADV xxxxxxxxx Maps Contracted CARE Advance Directives For more information, please contact:[facility] [place], [place] [phone] Code Status Date Activated Date Inactivated Comments Full Code 02/16/2019 3:49 PM 02/21/2019 12:47 PM This code status was determined by: Patient
--- OUTSIDE RECORDS SUMMARY | 2020-01-25 12:12 | XMS REPORT ---
:1940 Author Organization [employer] Care Team Providers Name Role Phone Cameron Zavala Provider Role Unavailable Allergies No Known Allergies Problems Problem Type Condition Code Onset Dates Condition Statu s Problem Insomnia, unspecified type G47.00 A ctive Problem Bipolar affective disorder, F31.9 Active remission status unspecified Problem Loss of balance R26.89 Active Problem Status post laparoscopic Z90.49 Act loren cholecystectomy Problem Mixed hyperlipidemia E78.2 Active Problem Decreased hearing of both ears H91.93 Active Problem Tobacco use disorder F17.200 Active Problem GERD without esophagitis K21.9 Act loren Problem History of fall Z91.81 Active Problem History of CVA (cerebrovascular Z86.73 Active accident) without residual deficits Problem Anxiety F41.9 Active Problem HTN, goal below 130/80 I10 Activ e Assessment HTN, goal below 130/80 I10 Activ e Problem Current moderate episode of major F32.1 Active depressive disorder without prior episode Problem Controlled type 2 diabetes mellitus E11.9 Active without complication, without long-term current use of insulin Medications Medication Code Code Instructions Start End Date Status Dosage System Date Metoprolol [facility] [id number] 25 MG Orally Active 1 ta blet Tartrate Twice a day with food Results No Known Results Summary Purpose [employer]ClinicalWorks Submission
--- OUTSIDE RECORDS SUMMARY | 2020-01-25 12:12 | XMS REPORT | Continuity of Care Document ---
:1940 Author Organization [facility] t Address [facility] [place] [address] Care Team Providers Name Role Phone CATALINA POSADA Attending Clinician Unavailable Tara MUSTAFA, Catalina Attending Clinician [phone] Jeff MUSTAFA Attending Clinician Yevgeniy Vieira MD Attending Clinician Norma MUSTAFA, FMarlys Attending Clinician Malissa MUSTAFA Attending Clinician Dioni Strickland Attending Clinician CATALINA POSADA Admitting Clinician Unavailable Payers Payer Name Policy Type Policy Number Effective Date Expiration Source Date HUMANA - MEDICARE MGD xxxxxxxxx [facility] CAR[facility] VO[facility]HEESA MEDICARE [facility] - ADVxxxxxxxxx[facility]aps [facility] Contracted Center Problems Condition Condition Condition Status Onset Resolution Last Treating Co mments Source Name Details Category Date Date Treatment Clinician Date Gall Gall Disease Active [facility] bladder bladder 8- [facility] - stones stones 00:00: Medical 00 Center Current Current Diagnosis [facility] moderate moderate [facility] - episode of episode of Me moria major major l depressive depressive Ou tpati disorder disorder ent without without Clinics prior prior episode episode Insomnia, Insomnia, Diagnosis Active [facility] unspecifie unspecifie Monique kes - d type d type Memoria l Outpati ent Clinics Controlled Controlled Diagnosis Active [facility] 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 l without without Outpati complicati complicati en t on, on, Clinics without without long-term long-term current current use of use of insulin insulin History of History of Diagnosis Active [facility] fall fall [facility] - Memoria l [facility] ent Clinics History of History of Problem Active [facility] CVA CVA [facility]ukes - (cerebrova (cerebrova Me moria scular scular l accident) accident) Outp ati without without ent residual residual Clinic s deficits deficits Loss of Loss of Problem Active [facility] balance balance [facility] - Memoria l [facility] ent Clinics Tobacco Tobacco Problem Active [facility] use use [facility] - disorder disorder Memori a l [facility] ent Clinics Anxiety Anxiety Problem Active [facility] ent Clinics Bipolar Bipolar Diagnosis Active [facility] t affective affective Luke s - disorder, disorder, Emerson deng remission remission l status status [facility] unspecifie unspecifie en t d d Clinics GERD GERD Problem Active [facility] without without [facility]ukes - esophagiti esophagiti Me moria s s l [facility] ent Clinics HTN, goal HTN, goal Diagnosis Active [facility] below below [facility]ukes - 130/80 130/80 Memoria l [facility] ent Clinics Status Status Problem Active [facility] post post [facility]ukes - laparoscop laparoscop Me moria ic ic l cholecyste cholecyste Ou tpati ctomy ctomy ent Clinics Mixed Mixed Diagnosis Active [facility] hyperlipid hyperlipid Monique kes - [facility] Decreased Decreased Problem Active [facility] hearing of hearing of Monique kes - both ears both ears Emerson deng l [facility] ent Clinics 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 Social History Social Habit Start Date Stop Date Quantity Comments Source Sex Assigned At [facility] Medications Ordered Filled Start Stop Current Ordering Indication Dosage Frequency Signature Comments Components Source Medication Medication Date Date Medication? Clinician (SIG) Name Name ProAir HFA ProAir HFA Yes Cameron [address] [facility] 4-06 [place] needed [facility] - 00:00: Memoria 00 l [facility] ent Clinics traMADol 2019-0 2019- No 50mg Take [address] [facility] (ULTRAM) 50 02-21-16 tablet (50 L ukes - mg tablet 00:00: 23:59 mg total) Me dical 00 :00 by mouth Center every 6 (six) hours as needed for up to 10 days. Max Daily Amount: 200 mg ondansetron 2019- No 4mg Take [address] [facility] (ZOFRAN-ODT 02-21-13 tablet (4 Monique kes - ) 4 MG 00:00: 23:59 mg total) Medic al disintegrat 00 :00 by mouth Cent er ing tablet every 8 (eight) hours as needed for up to 7 days. polyethylen 2018- No 17g Take [address] [facility] e glycol 02-21 by mouth Lukes - (GLYCOLAX) 00:00: 23:59 daily as Me dical 17 gram 00 :00 needed Center packet (Constipat ion) for up to 3 days. clopidogrel Yes 75mg QD Take [address] (PLAVIX) 75 7-22 by mouth Luke s - mg tablet 00:00: daily. Medica l 00 Center ALPRAZolam Yes 1mg [id number] Take [address] (XANAX) 1 7-17 [id number] by mouth 3 [facility]ukes - MG tablet 00:00: 3D (three) Medic al 00 times Center daily. traZODone Yes 100mg QD Take [address] (DESYREL) 7-15 mg by Lukes - 100 MG 00:00: mouth Medical tablet 00 nightly. [place] FLUoxetine Yes 80mg QD Take [address] (PROZAC) 40 7-15 by mouth Luke s - MG capsule 00:00: every Medica l 00 morning. [place] metoprolol 0 Yes 25mg Take [address] (LOPRESSOR) 7-13 by mouth 2 Monique kes - 25 MG 00:00: (two) Medical tablet 00 times Center daily with breakfast and dinner. lisinopril Yes 20mg QD Take [address] (PRINIVIL,Z 7-12 by mouth Luke s - ESTRIL) 20 00:00: daily. Medic al MG tablet 00 Center amLODIPine 2019-0 Yes 10mg QD Take [address] (NORVASC) 7-09 by mouth [facility]ukes - 10 MG 00:00: daily. Medical tablet Center omeprazole 2019-0 Yes 20mg QD Take [address] (PRILOSEC) 6-12 by mouth [facility]ukes - 20 MG 00:00: daily. Medical capsule Center Metoprolol Metoprolol Yes Cameron TAKE [address] [facility] Tartrate Tartrate [place]ala TABLET BY L ukes - M[facility]TH [facility] Lisinopril Lisinopril Yes Cameron [address] [facility] Simvastatin Simvastatin Yes Cameron [address] [place] in the [facility] - evening [facility] ent [facility] Omeprazole Omeprazole Yes Cameron [address] [facility] Fluoxetine Fluoxetine Yes Cameron [address] HCl HCl [facility]avala [facility] ent [facility] Clopidogrel Clopidogrel Yes Cameron TAKE [address] [facility] Bisulfate Bisulfate [place] TABLET BY Lukes - MOUTH Memoria EVERY DAY l [facility] ent [facility] Alprazolam Alprazolam Yes Cameron [address] Zavala [facility] Trazodone Trazodone Yes Cameron [address] HCl HCl Zavala at bedtime [facility] ent [facility] Amlodipine Amlodipine Yes Cameron [address] Besylate Besylate [facility]ala [facility] ent [facility] Immunizations Ordered Filled Immunization Date Status Comments [facility] e Immunization Name Name FluAD FluAD 2019-04-06 Completed [facility] - 00:00:00 [facility] Outpatient [facility] Vital Signs Vital Name Observation Time Observation Value Comments Source Systolic blood 2019-02-21 08:44:00 138 mm[Hg] [facility] Diastolic blood 2019-02-21 08:44:00 65 mm[Hg] [facility] Heart rate 2019-02-21 08:44:00 87 /min [facility] Body temperature 2019-02-21 08:44:00 36.33 Angelica [facility] Respiratory rate 2019-02-21 08:44:00 17 /min [facility] Oxygen saturation in 2019-02-21 08:44:00 92 /min [facility] Arterial blood by Medical Ce nter Pulse oximetry Procedures Procedure Date / Time Performed Performing Clinician Sour e REPORT OF PROCEDURE - 2019-02-22 11:10:40 Provider, Default [facility] ENDOSCOPY SCAN [facility] RHYTHM STRIP - SCAN 2019-02-22 11:10:35 Provider, Default [facility] TRANSFUSION SERVICE 2019-02-21 18:00:58 Provider, Default [facility] - REPORT - SCAN [facility] BASIC METABOLIC PANEL (7) 2019-02-21 05:38:00 Marie Green [facility] HEPATIC FUNCTION PANEL 2019-02-21 05:38:00 Marie Green [facility] CBC W/PLT COUNT & AUTO 2019-02-21 05:38:00 Marie Green [facility] TISSUE EXAM 2019-02-20 14:48:00 Marie Green [facility] LAPAROSCOPY,CHOLECYSTECTO 2019-02-20 14:21:00 Marie Green [facility] ABORH, MANUAL 2019-02-20 06:36:00 Ana Maria Fernandez [facility] METABOLIC 2019-02-20 05:56:[address] [facility] TYPE AND SCREEN, 2019-02-20 05:56:00 Tomeka Baldwin [facility] METABOLIC 2019-02-19 05:25:[address] [facility] CBC W/PLT COUNT & AUTO 2019-02-19 05:25:00 JeffMessi [facility] METABOLIC 2019-02-18 13:40:[address] [facility] CBC W/PLT COUNT & AUTO 2019-02-18 05:20:00 JeffMessi [facility] REPORT OF PROCEDURE - 2019-02-17 15:46:39 Tab Strickland [facility] ERCP 2019-02-17 14:00:00 Tab Strickland [facility] PROCEDURE W/ C-ARM 2019-02-17 14:00:00 Marco A [facility] ERCP,BALLOON SWEEPING 2019-02-17 14:00:00 Tab Strickland [facility] URINALYSIS W/ REFLEX 2019-02-17 07:16:[address] [facility] URINE CULTURE [facility] 2019-02-17 05:39:00 Jeff [facility] CBC W/PLT COUNT & AUTO 2019-02-17 05:39:00 Messi Aguilar [facility] CT ABDOMEN/PELVIS WITH IV 2019-02-16 22:33:[address] [facility] CONTRAST [facility] 2019-02-16 17:31:[address] [facility] B-TYPE NATRIURETIC FACTOR 2019-02-16 17:31:[address] [facility] (BNP) [facility] LIPASE 2019-02-16 17:31:00 [facility]T [facility] & AUTO 2019-02-16 17:31:00 Messi Aguilar [facility] BLOOD CULTURE 2019-02-16 17:30:00 [facility] En[facility] Start End Encounter Admission Attending Care Care Encounter Source Date/Time Date/Time Type Type Clinicians Facility Department ID 2020-01-01 2020-01-01 [facility] [id number] 08:15:00 08:15:00 t [employer] Steptoe s - Skyera [facility] Family Medicine Medicine Outpati ent Clinics 2019-12-29 2019-12-29 [facility] [id number] 11:28:00 11:28:[address] [employer] [address] [facility] Medicine l Medicine Outpati ent Clinics 2019-10-27 2019-10-27 [facility] [id number] 14:46:00 14:46:00 t [employer] Skyera Luke s - Drive [facility] Medicine Medicine Outpati ent Clinics 2019-10-25 2019-10-25 [facility] [id number] 11:43:00 11:43:00 t [employer] Skyera [employer] s - Drive [facility] l Medicine Outpati ent Clinics 2019-10-23 2019-10-23 [facility] [id number] 11:45:00 11:45:00 t [employer] s - Drive [facility] Medicine Medicine Outpati ent Clinics 2019-10-23 2019-10-23 [facility] [id number] 08:55:00 08:55:00 t [employer] s - Drive [facility] Medicine Outpati ent Clinics 2019-08-07 2019-08-07 [facility] [id number] 15:30:00 15:30:00 t [employer] s - Drive [facility] Medicine Outpati ent Clinics 2019-07-17 2019-07-17 [facility] [id number] 10:55:00 10:55:00 t [employer] s - Drive [facility] Medicine Outpati ent Clinics 2019-07-11 2019-07-11 [facility] [id number] 11:05:00 11:05:00 t [employer] s - Drive [facility] Medicine Outpati ent Clinics 2019-04-06 2019-04-06 [facility] [id number] 14:30:00 14:30:00 t [employer] s - Drive [facility] Medicine Outpati ent Clinics 2019-03-16 2019-03-16 [facility] [id number] 12:09:00 12:09:00 t [employer] s - Drive [facility] Medicine Outpati ent Clinics 2019-03-13 2019-03-13 [facility] [id number] 09:55:00 09:55:00 t [employer] s - Drive [facility] Medicine Outpati ent Clinics 2019-03-06 2019-03-06 [facility] [id number] 14:45:00 14:45:00 [facility] [employer] Steptoe [employer] [facility] ent [facility] 2019-01-04 2019-01-04 [facility] [id number] 16:00:00 16:00:00 [employer] Steptoe [employer] [facility] ent [facility] 2018-10-26 2018-10-26 [facility] [id number] 13:30:00 13:30:00 [facility] Skyera Steptoe [employer] [facility] ent Clinics Results Test Description Test Time Test Comments Results Result Comments Source Tissue Exam 2019-02-23 10:13:00 Test Item Value Reference Range Interpretation Comme nts Case Report (test code = 104) Surgical Pathology Report Case: [id number] Authorizing Provider: Marie Green MD Collected: 02/20/2019 1448 Ordering Location: [facility] Received: 02/21/2019 1406 SERVICES Pathologist: Mignon Winter MD Specimen: Gallbladder DIAGNOSIS (test code = 3220) y1josBJaVWAmx6aoIGIfoNTeYbQtHfFsQuUwDi pc yGJzWLcsfxToCNtrh9OvE8ViXuFmHEhfvzFfMQHf GqythwybHJByRGH4jmJdOEUzVTqmKMKrRFijUs4t iYWwhVcuRpXdNKDtf7rzwcSAvyyneUi9yBayI23e m1L6BsohL4wjKJZrTTIbG6ViDB8pKPCmXlo4RNK9 NOF9QXFsDFDdQ8VuDQ1zHHZviKEwUYu3x4ywxLjh UTQpQNM6e2fbWVidofHmSM1oqj5lcSx7s8joylQk ZNSeJOBprCMNXHXpZ5DykIngQe0cxJi3qMauKtnp SVV0Sth2DO1web52smp0cKodPAWeajaaUxQ1FRaa AIXdavxuOHm6AMreKOXqnQyzUMsaEJEwqvwxUWol FKJamHylNOgtSZSdZkfxPEtaRBYjRBR6UCkuz198 VIV6KGemo7ubk5kglYJgFgp8ZNIsSaFoBoqfYZsu n6Zrj7otYVKaqq6oRDP8wWMboCknm7U8nIRvLISj qUOezoUkMZXjSmG7JMffAA2sni65AYHmIQA6te5k kLRlzOawalHqkHWhBEuzD7FxXQBts997YQUwV1Gf LMVss5I6hgIhNaHiTHNtyXA5jgU1PUVqLNf2tDLm uyK1iyNigYPaQ0ivmF11EaLdxNRyR7IscR97GpJv wFPxU0BgsJ41OvZoaHSdR0NxoH42RjTneZPdPJVs fNHbMg6teURpqMLyt8PzkEWpYIfrS34id817TKIh upReW2haiDAqygrizTChjapgYYdixtE3BKIfWGRi YWluXGYwXGZzMjBcbGFuZzEwMzNcaGljaFxmMFxk UsRcQGFiAFpoF6ioDkPyEgHnVMRTXUeZAkdFBCQZ AimjN7pAMSLWMYDVQMMYZ42JNlmdUQCwPYWsBTMU MBFPWsvQWINFX4iOG8jECLdYEKBuMJ3XYFSFS6iP MFcKMJxKC3zOCKFpocVzWRUtLV3UOTLEIH8LG65v YMlIICvoUz9OELroDJU4k1zcaVGwTHOunANwZNEj HBxqjzLbMCZjQzthmsozEDZgNZT4gpRrAREtNZlo OYWtFDfpUi3ioNCdcRxlXuOmRNFsy5zntzVOtckt pKu7j3geOEGfEoU6pQFeKMqcU0ocsoDdnLMhMOQi OYw3oJ77OQNllC0zeJOnZRtdjuWhUpO6PVywKEOw XbV5BYAcpWAdMQBqX2atSRByUCeuKRSlUYvfpJJo HWU4bGegm8A1aXAasJVcrKcwMnYrQiYfCtGRd8Hp BDb9nLlaV0VkQEDkLyY0wRWlBRToFQkqIOGtHCGj ejB8vZ06JGauizK4tJOmc3Vvo33if325bG6iiLAo WPA5OBDjWJJzxCCyMPMrBJZ2SCRqjCFkA5wvGECt EA6ukskeTYhgJXqyMYKxgYD1KQHioEYnJ1JpUIHu DBdaQGAnobm5JwQoUc5dpEYxzZriOAboy3zlu4kb dQGrRjz2ZNXuLpCwIoftHFidu3Lcz2ncIUNqrz5s ZWV8nLPrfJrej1J7mTGhGNGygXTtWGOgKN6uuQUr OWKayQ5emvcjXMGbGqSkmqtmWGXweVrvdqMvAw6y kKtdVUL5CZzxP9gooV7jSsY2ONvpR9wesZ8vFVg2 IIjnCALnzGP8fvG9UDWxtYRzW9LhoZ2kRLDsSD7j lee0o7bcFCE8KTgjXVLaAuQ0mbN8BHLvpJMkVFRw sFymVNbuj532BME7MxVnKEKok9UhX6AztQueS73x cMeoR68bTZJvpZubbS9tmLzadA7yXaFqTnUgFInc mQoqER1nYIPvI2hxgFJyBBEcGXNmX5nrPoRayD4q iVbuBCuizqPfCUHgEvg4MOVkhRLyWIMpDmr9DEGq YAJxE86vjzxdMVP1sI5hz0gyh0OgFBpdBSJ0EQCg b20pOHyglhG0FTrjLe6aMuOqVGO1RRcbBOQ3aL== CPT Code(s) (test code = 3357) o0ctoTFkJLMdnIHvFpBcOPKnJKRwf8cfVFUw bGFu BqRdXmCvWwQkVktuoPJwRMZrRyAad9enn040tFIo v1baKFGvTeO6kDVtCRTigXYmA490m4nop6vmsmRa jGC6TCRfUOC9OWdinlDpagJ9VVucqTWhUdC1JNvy iwKaPNbfdoHjeuZhHwc0BRQqG004YYZ2dHkzv6zc TAJ6EMFvNBIkSqJtUj4nlWTsA635FCSnQLFIJSJu hQd8PAAlabBhvsWzbAEBk857C932d7fhKPOltaBj sPeQxbpis0trL582DIMvpGUdqiVyWuVoASFxgBEr hAX1ZFZbUI1mdiioVfIlDN0lszusJfQlPN4sfis8 GaCgDS6gibxuEcHyAVzdDTVsfbgoXENxm3Fnqgnd JA9kM8Pbd3I1pR6wbFEnHGUkqJNvEuPpNZCaui4r dVRvJKnkn2GxAAE2oqP1kKNjpWGsCMLnXQ46Fflu e3XzVatiUAM5RSDewtPzd7Mgy3siFaKmvxOcZ6gn C1UxWPBuNSLxRTWsNoAyifTky2Zrm8VxzTItgNz4 m1mpYUCuKGRxgVtju3klAOU4JBZdK5N3dCEte4hj JCqzCEBxmGR8eyerWRntTJPnekK1rlzfXWxcZYIc uMH5xlvmFZfxNXYnWhF6mtajGLtrVJJsSWS7MKrx r755ETZ1VOdyOogpGAegEGVcklZpsbRobHacUTGj FLCnDLcyUBWwEPpkKWOyGCLjPmCozIqyvBxfeH1x NcJeVzPqDKqbOK4tPZUwE2gzxTNxIDJwRUKsA1se VyTfcZ6wyWojVPkyucKtMSw0WwN1UKAexp6= CLINICAL HISTORY (test code = 3356) g3jwnJHaEYFxbSDkMaLuRLPvRCNxt1n cZGVmbGFu ZlAtWwKvCmLhZhyvaMQgRIPiYuExm8bxo603kVRq y9mcWJYzKvP0vSKvEYDgjURzC652g2qrc4dudfIz wBW2KDXqZNL7EBoqjkEhntY8RSppiCXsBbF3DRbv idZsRYzullBvwlCzDew4UKUjV313FQF5bIywk2jz GCQ1XNYcQHUyTlDyTs5nnCAjO091DSHoLBZSVQBm uJw2HVSousWbhrDweUCWx102K813d6hnLOAfaiPy yYyBapaxp8dyT279EXWutGNbthJtZaHrWOBaoLOk bFJ2JLIxSY1hvqtoUhVxWQ6zzequEvMiHE7jsyy8 QxCtAC4poxndOyNsTFwhAMBpxykpKWEwp8Zptjxu TX6cS4Nng4U8zU1mpLRxWHPolTRfIzEnILGkhh0t uZHmVSvzn0AcZGU2rfG1kPAkqOJaFFUuWH45Mouf u2JoGaooLRV4YQZfezUhc9Lex3isZiZahcEvO1ol O1BkZGSuNNGoDSCpMqLzaqNip4Pgb2CvdCQmnPi2 x7leZTIgQPEwbVesf6umVDG8RFJzE5T8dPGjc4xg NVzsSHCmfMT4frcyYAcrTTHvrjM1fwpaSDczZHPk gDX7iuhuFAwcGKVfNgK8rlylDGwgTSMiJLR2RQos f486JMP1HAjcEtttFJnvUWGxqeQpzzXhaKnhMWEl GNHxJWqaCMXvVTboZVUbFWKlLzEmtCehdSpitE2o UaRdOuRcFNexUV6yJJOhO8sesCAlRSOcMXRzX8qr IxCvcA0ezUtbVKxaeaFvGHezqQequH1eLFOkIR8q epYdtYl8oQOoAZAhtp8= SPECIMEN SOURCE (test code = 3377) m7oqyLNvATLmqJIxMiSxSPEhKHMyu0zy ZGVmbGFu NeLtAoZiRjWyEzgvqPEcXARzDlFox2xsq945cIMp p2uvEFHzWcH4eZHgIHBknEWgD426s6cvx4iiwoXp cJR1UPAcQYI0XIoauyLyebO5MWzigCEbBzF9JEgl pyXkNXvthcUviiGgLiz4ENRdH020FNY1lDuau4vi LTZ7MQYeCPMqXcHkRh6wrULgN395SVLnTJMHZRFs tBg6EBXxosUjqzYcuJUDa080S956w5hpWHRhwqHn pLxCatduj7rmJ298RUVlkCGgwrKiUtDiWYLppPTl dYE8NFStKG8omdxoMtBdTS6zgyikUcImJB5dmtz6 HvKlRO1oftbjFqDoOEivKEPvvvqcQPFzk8Tmqcta KB9xI0Mtv1O3qX6pwQWdPRHliOUuSbZfLYZyua3i sGCqBQeuq0GlWIH3qyK8jSLqrZFnHOWxXN54Btet x8WtWebaKJS4BRYemgWgk9Eue3crVvYquwKsH5ju J4RjPMZdKCVyIGGaMyOlliUko0Kzd5ObiBVigAe7 i4vxESFxRSBonPogt1vkRGR9GGQmK7G0xFUho5iu AEviMURciXF2hkpwDMxoORCnnnE2bjiwTAdsLZGj fHM1hnrxOVsxFUOxQqB4comxTWlqFLSaAUY0YNas v377NVD7MRdlZfnnWYikTEDjamRsviUswVgdOCNc HELnVOmiVYLoKTuyHUDaLJTnWzMejKqgbBmqbE9e FlFrCqMbXTboDV9uZHTnT7llcJHvUXMsLWAgM1da YmJhbX6wqArvLYyeeuJsCHoMKQhJVINQQNUEMFNv cn0= GROSS DESCRIPTION (test code = 3366) q6mhnAFhPFNmgTLmCvMfJXOoOFLib1 lcZGVmbGFu [file] eGltYXRlbHkgNSBjYyBvZiBiaWxlIGFuZCAxIGNt FVKsO4CgA0I0JYUaQxNfuYp9oAGsBWIvkPQfeSJr cDHvpmJsUNeby0FqbnAbFbGKnNFmz4QvoKI5yXta m81sl9FtwKPuXR0pLNRkRsRGdIIee5GvX4zfWD8d qIVfw8TmjQYmjAhao9RwfQadebVyEXQmbsZtoq8e tWLenA6thbYcddFxC3Hym5QyhGTaUEVlkRlzjZHu JjGCWVCcZJPsknMwbOy0QSRgJHE5yY7uvzJjyJ6v IbJ3rJIeAVXvAUOprSM4hFLdPTUowNQlMZZrhW8q CI4rJC0vEXFnpD4jqKNqk8ZtOGOqQLRvaZXeyCW6 GLAtoF2kG0Ntv9M3rZSxGEMfPXIsQbXIPL8gc4zt YXJ9 MICROSCOPIC DESCRIPTION (test code = t8eccCGiDNRxtJHzOjKmJLAfISQof3 [place] [address] GqHeEkFpVqCyGhlrgHZkMSEaZiXta6aqq042wQOb y6roGLDkErT7oLKmLDAbdWOjJ705n3iaz9cddoGs sPC9WIOrIBH2WYrwgjXsosL3WRpttTVsFcV3WVms fjIxKChfntNwowFbGtm9GKAgA025OQO5uLfhd8lv SIA5CLZmQYSvLgYfJb6hcFUyE462RQGpCCJAFZHh bRm1LJJrcrYjeqQpcCZCy463J085f5nvDGYnsiXk yTuDfoiio6yiH246SAEswSNttzBfNiUhETRpmYYv wJC7IDZdQS5kkvdqPuIhVM9epeudOhAnYO7awim5 YaThCP3kxgbhLpWaTRanCHVafuzjIQEbw5Eisafh NM2gB9Hzh4W2oN8huLShLUGycQKrCtWwUTHamp7x nCTzXUbmw3TpBVP4idZ5lRNjkYXtWBGhSR29Vopd n9NiWifiREU9GUMgeqEtu5Yee2ovJgJrvyWeD9sx S8CyNVTyTHQkNFNiYyLijnVps8Bhx7VunIXvmXr6 d2tiYIOaROBplQhij6ecSXJ1AFYgN5B7dITln1fv SHarUTSujCC7eoeeOFdnLGBsqhM3fgjkPUirNXQe eLB8hxzvVSsdRBEiCbL2jdbuTGfoXQTzEYF3LTpl t998SDU3RLeqNetbLSdrJKCkujSkskXcdQeuMWAi EPVpGRbpRSZxREppNAPtRLOxFaSgeMgusQfidV3p ImYaCeBpFTstIH9qKRUpI4nvrSJvSTCvBJHmB8cf SsKyxQ5sbOlhWOmgtxTlXCTxzkKlwm9jIL2quEFf fQ== [id number] 10:13:00Surgical Pathology Report Case: [id number] Authorizing Provider: Marie Green MD Collected: 02/20/2019 1448 Ordering Location: [facility] Received: 02/21/2019 1406 SERVICES Pathologist: Mignon Winter MD Specimen: Ga llbladder GALLBLADDER, CHOLECYSTECTOMY: - CHRONIC CHOLECYSTITIS AND CHOLELITHIASIS - ONE BENIGN LYMPH NODE Signing Pathologist Direct Phone Line: [phone] signed by Mignon Winter MD on 02/23/2019 at 10:13 A [id number] pancreatitis GALLBLADDERReceived in formalin labeled "gallbladder" consists of a 9.5x 3 x 1.5 cm previously intact gallbladder with a 0.8 x 0.4 cm cystic duct. The serosa is hirsch-pink, hyperemic, and smooth with prominent vessels and a partially cauterized area. The serosa along the fundus shows fibrinopurulent patchy exudate. The specimen is opened to show hirsch-pink and velvety mucosawith approximately 5 cc of bile and 1 cm aggregate of multiple small black gallstones. The wall thickness is 0.1 cm. The specimen is serially sectioned, and no lesions are grossly identified. Vine Pruner sections along with the cystic duct margin and one lymph node are submitted in cassettes A1-A2. TH/ewPerformed.Blood [id number] 20:01:00 Test Item Value Reference Range Interpretation Comments Result (test code = No growth in 5 days 6463-4) [id number]:01:00 Test Item Value Reference Range Interpretation Comments CULTURE (BEAKER) (test No growth in 5 days code = 1095) Basic Metabolic [id number] 07:14:00 Test Item Value Reference Range Interpretation Comments Sodium (test code = 138 meq/L 930-008 1915-2) Potassium (test code = 3.8 meq/L 3.5-5.1 2823-3) Chloride (test code = 102 meq/L 98-107 2075-0) CO2 (test code = 28 meq/L 22-29 2028-9) BUN (test code = 6 mg/dL 7-21 L 3094-0) Creatinine (test code = 0.63 mg/dL 0.57-1.25 2160-0) Glucose (test code = 104 mg/dL 70-105 2345-7) Calcium (test code = 8.6 mg/dL 8.4-10.2 22480-6) EGFR (test code = 92 mL/min/1.73 [place] [address]-2) NOT ACCURATE CREATININE CLEARANCE IN PREDICTING GLOMERULAR FILTRATION RATE . ESTIMATED GFR I S NOT APPLICABLE FOR DIALYSIS PATIEN TS. Lab Interpretation Abnormal (test code = 76275-9) [facility] [id number] 07:14:00 Test Item Value Reference Range Interpretation Comments Protein, Total (test code = 2885-2) 6.5 6.0- 8.3 gm/dL Albumin (test code = 22960-2) 3.3 g/dL 3.5-5 L Total Bilirubin (test code = 1.6 mg/dL 0.2-1.2 H 1974-2) Bilirubin, Direct (test code = 1.2 mg/dL 0.1-0.5 H 1967-7) Alkaline Phosphatase (test code = 365 U/L 40-150 H 6768-6) AST (test code = 1920-8) 63 U/L 5-34 H ALT (test code = 1742-6) 94 U/L 6-55 H Lab Interpretation (test code = Abnormal 09850-0) [facility] [id number] 07:14:00 Test Item Value Reference Range Interpretation Comments TOTAL PROTEIN (BEAKER) (test code = 6.5 gm/dL 6.0-8.3 770) ALBUMIN (BEAKER) (test code = 1145) 3.3 g/dL 3.5-5.0 L BILIRUBIN TOTAL (BEAKER) (test code 1.6 mg/dL 0.2-1.2 H = 377) BILIRUBIN DIRECT (BEAKER) (test 1.2 mg/dL 0.1-0.5 H code = 706) ALKALINE PHOSPHATASE (BEAKER) (test 365 U/L 40-150 H code = 346) AST (SGOT) (BEAKER) (test code = 63 U/L 5-34 H 353) ALT (SGPT) (BEAKER) (test code = 94 U/L 6-55 H 347) BASIC METABOLIC [id number] 07:14:00 Test Item Value Reference Range Interpretation Comments SODIUM (BEAKER) 138 meq/L 136-145 (test code = 381) POTASSIUM (BEAKER) 3.8 meq/L 3.5-5.1 (test code = 379) CHLORIDE (BEAKER) 102 meq/L 98-107 (test code = 382) CO2 (BEAKER) (test 28 meq/L 22-29 code = 355) BLOOD UREA NITROGEN 6 mg/dL 7-21 L (BEAKER) (test code = 354) CREATININE (BEAKER) 0.63 mg/dL 0.57-1.25 (test code = 358) GLUCOSE RANDOM 104 mg/dL 70-105 (BEAKER) (test code = 652) CALCIUM (BEAKER) 8.6 mg/dL 8.4-10.2 (test code = 697) EGFR (BEAKER) (test 92 mL/min/1.73 ESTIMA WILFRID GFR IS code = 1092) sq m NOT ACCURATE CREATININE CLEARANCE IN PREDICTING GLOMERULAR FILTRATION RATE . ESTIMATED GFR I S NOT APPLICABLE FOR DIALYSIS PATIEN TS. CBC with platelet count + automated [id number] 06:29:00 Test Item Value Reference Range Interpretation Comments WBC (test code = 6690-2) 13.4 3.5- 10.5 K/L H RBC (test code = 789-8) 3.88 3.93- 5.22 M/L L MCHC (test code = 786-4) 31.0 32.2- 35.5 GM/DL L Hematocrit (test code = 4544-3) 36.4 % 34.1-44.9 MCV (test code = 787-2) 93.8 fL 79.4-94.8 MCH (test code = 785-6) 29.1 pg 25.6-32.2 RDW (test code = 788-0) 16.6 % 11.7-14.4 H Platelets (test code = 777-3) 333 150- 450 K/CU MM MPV (test code = 84696-1) 9.1 fL 9.4-12.3 L nRBC (test code = 413) 0 0- 0 /100 WBC % Neutros (test code = 429) 66 % % Lymphs (test code = 430) 25 % % Monos (test code = 431) 6 % % Eos (test code = 432) 2 % % Baso (test code = 437) 1 % # Neutros (test code = 670) 8.85 1.56- 6.13 K/L H # Lymphs (test code = 414) 3.29 1.18- 3.74 K/L # Monos (test code = 415) 0.82 0.24- 0.36 K/L H # Eos (test code = 416) 0.24 0.04- 0.36 K/L # Baso (test code = 417) 0.07 0.01- 0.08 K/L Immature Granulocytes-Relative 1 % 0-1 (test code = 2801) Lab Interpretation (test code = Abnormal 97767-4) [facility] W/PLT COUNT & AUTO [id number] 06:29:00 Test Item Value Reference Range Interpretation Comments WHITE BLOOD CELL COUNT (BEAKER) 13.4 K/ L 3.5-10.5 H (test code = 775) RED BLOOD CELL COUNT (BEAKER) 3.88 M/ L 3.93-5.22 L (test code = 761) HEMOGLOBIN (BEAKER) (test code = 11.3 GM/DL 11.2-15.7 410) HEMATOCRIT (BEAKER) (test code = 36.4 % 34.1-44.9 411) MEAN CORPUSCULAR VOLUME (BEAKER) 93.8 fL 79.4-94.8 (test code = 753) MEAN CORPUSCULAR HEMOGLOBIN 29.1 pg 25.6-32.2 (BEAKER) (test code = 751) MEAN CORPUSCULAR HEMOGLOBIN CONC 31.0 GM/DL 32.2-35.5 L (BEAKER) (test code = 752) RED CELL DISTRIBUTION WIDTH 16.6 % 11.7-14.4 H (BEAKER) (test code = 412) PLATELET COUNT (BEAKER) (test 333 K/CU MM 150-450 code = 756) MEAN PLATELET VOLUME (BEAKER) 9.1 fL 9.4-12.3 L (test code = 754) NUCLEATED RED BLOOD CELLS 0 /100 WBC 0-0 (BEAKER) (test code = 413) NEUTROPHILS RELATIVE PERCENT 66 % (BEAKER) (test code = 429) LYMPHOCYTES RELATIVE PERCENT 25 % (BEAKER) (test code = 430) MONOCYTES RELATIVE PERCENT 6 % (BEAKER) (test code = 431) EOSINOPHILS RELATIVE PERCENT 2 % (BEAKER) (test code = 432) BASOPHILS RELATIVE PERCENT 1 % (BEAKER) (test code = 437) NEUTROPHILS ABSOLUTE COUNT 8.85 K/ L 1.56-6.13 H (BEAKER) (test code = 670) LYMPHOCYTES ABSOLUTE COUNT 3.29 K/ L 1.18-3.74 (BEAKER) (test code = 414) MONOCYTES ABSOLUTE COUNT (BEAKER) 0.82 K/ L 0.24-0.36 H (test code = 415) EOSINOPHILS ABSOLUTE COUNT 0.24 K/ L 0.04-0.36 (BEAKER) (test code = 416) BASOPHILS ABSOLUTE COUNT (BEAKER) 0.07 K/ L 0.01-0.08 (test code = 417) IMMATURE GRANULOCYTES-RELATIVE 1 % 0-1 PERCENT (BEAKER) (test code = 2801) ABORH, [id number] 07:21:00 Test Item Value Reference Range Interpretation Comments ABO Grouping (test code = 2588) O Rh Factor (test code = 2589) [facility] [id number] 07:05:00 Test Item Value Reference Range Interpretation Comments Protein, Total (test 7.3 6.0- 8.3 gm/dL code = 2885-2) Albumin (test code = 3.6 g/dL 3.5-5 51821-2) Alkaline Phosphatase 457 U/L 40-150 H (test code = 6768-6) Total Bilirubin (test 1.8 mg/dL 0.2-1.2 H code = 1974-2) Sodium (test code = 139 meq/L 159-347 2568-2) Potassium (test code = 4.0 meq/L 3.5-5.1 2823-3) Chloride (test code = 100 meq/L 98-107 2075-0) CO2 (test code = 30 meq/L 22-29 H 8-9) BUN (test code = 6 mg/dL 7-21 L 3094-0) Creatinine (test code = 0.71 mg/dL 0.57-1.25 2160-0) Glucose (test code = 116 mg/dL 70-105 H 2345-7) Calcium (test code = 9.5 mg/dL 8.4-10.2 59301-5) AST (test code = 71 U/L 5-34 H 1920-8) ALT (test code = 113 U/L 6-55 H 1742-6) EGFR (test code = 80 mL/min/1.73 [place] [address]-5) NOT ACCURATE CREATININE CLEARANCE IN PREDICTING GLOMERULAR FILTRATION RATE . ESTIMATED GFR I S NOT APPLICABLE FOR DIALYSIS PATIEN TS. Lab Interpretation Abnormal (test code = 82768-4) [facility] [id number] 07:05:00 Test Item Value Reference Range Interpretation Comments TOTAL PROTEIN 7.3 gm/dL 6.0-8.3 (BEAKER) (test code = 770) ALBUMIN (BEAKER) 3.6 g/dL 3.5-5.0 (test code = 1145) ALKALINE PHOSPHATASE 457 U/L 40-150 H (BEAKER) (test code = 346) BILIRUBIN TOTAL 1.8 mg/dL 0.2-1.2 H (BEAKER) (test code = 377) SODIUM (BEAKER) (test 139 meq/L 136-145 code = 381) POTASSIUM (BEAKER) 4.0 meq/L 3.5-5.1 (test code = 379) CHLORIDE (BEAKER) 100 meq/L 98-107 (test code = 382) CO2 (BEAKER) (test 30 meq/L 22-29 H code = 355) BLOOD UREA NITROGEN 6 mg/dL 7-21 L (BEAKER) (test code = 354) CREATININE (BEAKER) 0.71 mg/dL 0.57-1.25 (test code = 358) GLUCOSE RANDOM 116 mg/dL 70-105 H (BEAKER) (test code = 652) CALCIUM (BEAKER) 9.5 mg/dL 8.4-10.2 (test code = 697) AST (SGOT) (BEAKER) 71 U/L 5-34 H (test code = 353) ALT (SGPT) (BEAKER) 113 U/L 6-55 H (test code = 347) EGFR (BEAKER) (test 80 mL/min/1.73 ESTIMA WILFRID GFR IS code = 1092) sq m NOT ACCURATE CREATININE CLEARANCE IN PREDICTING GLOMERULAR FILTRATION RATE . ESTIMATED GFR I S NOT APPLICABLE FOR DIALYSIS PATIEN TS. Type and screen, [id number] 07:02:00 Test Item Value Reference Range Interpretation Comments ABO/RH AUTOMATED (BEAKER) (test O POSITIVE code = 2260) Ab Scrn (test code = 890-4) NEGATIVE [facility] [id number] 07:59:00 Test Item Value Reference Range Interpretation Comments TOTAL PROTEIN 6.2 gm/dL 6.0-8.3 (BEAKER) (test code = 770) ALBUMIN (BEAKER) 3.1 g/dL 3.5-5.0 L (test code = 1145) ALKALINE PHOSPHATASE 423 U/L 40-150 H (BEAKER) (test code = 346) BILIRUBIN TOTAL 1.9 mg/dL 0.2-1.2 H (BEAKER) (test code = 377) SODIUM (BEAKER) (test 139 meq/L 136-145 code = 381) POTASSIUM (BEAKER) 4.6 meq/L 3.5-5.1 (test code = 379) CHLORIDE (BEAKER) 106 meq/L 98-107 (test code = 382) CO2 (BEAKER) (test 25 meq/L 22-29 code = 355) BLOOD UREA NITROGEN 5 mg/dL 7-21 L (BEAKER) (test code = 354) CREATININE (BEAKER) 0.64 mg/dL 0.57-1.25 (test code = 358) GLUCOSE RANDOM 107 mg/dL 70-105 H (BEAKER) (test code = 652) CALCIUM (BEAKER) 8.6 mg/dL 8.4-10.2 (test code = 697) AST (SGOT) (BEAKER) 104 U/L 5-34 H (test code = 353) ALT (SGPT) (BEAKER) 133 U/L 6-55 H (test code = 347) EGFR (BEAKER) (test 90 mL/min/1.73 ESTIMA WILFRID GFR IS code = 1092) sq m NOT ACCURATE CREATININE CLEARANCE IN PREDICTING GLOMERULAR FILTRATION RATE . ESTIMATED GFR I S NOT APPLICABLE FOR DIALYSIS PATIEN TS. CBC W/PLT COUNT & AUTO [id number] 05:50:00 Test Item Value Reference Range Interpretation Comments WHITE BLOOD CELL COUNT (BEAKER) 8.2 K/ L 3.5-10.5 (test code = 775) RED BLOOD CELL COUNT (BEAKER) 3.59 M/ L 3.93-5.22 L (test code = 761) HEMOGLOBIN (BEAKER) (test code = 10.4 GM/DL 11.2-15.7 L 410) HEMATOCRIT (BEAKER) (test code = 33.7 % 34.1-44.9 L 411) MEAN CORPUSCULAR VOLUME (BEAKER) 93.9 fL 79.4-94.8 (test code = 753) MEAN CORPUSCULAR HEMOGLOBIN 29.0 pg 25.6-32.2 (BEAKER) (test code = 751) MEAN CORPUSCULAR HEMOGLOBIN CONC 30.9 GM/DL 32.2-35.5 L (BEAKER) (test code = 752) RED CELL DISTRIBUTION WIDTH 17.2 % 11.7-14.4 H (BEAKER) (test code = 412) PLATELET COUNT (BEAKER) (test 294 K/CU MM 150-450 code = 756) MEAN PLATELET VOLUME (BEAKER) 9.2 fL 9.4-12.3 L (test code = 754) NUCLEATED RED BLOOD CELLS 0 /100 WBC 0-0 (BEAKER) (test code = 413) NEUTROPHILS RELATIVE PERCENT 46 % (BEAKER) (test code = 429) LYMPHOCYTES RELATIVE PERCENT 37 % (BEAKER) (test code = 430) MONOCYTES RELATIVE PERCENT 8 % (BEAKER) (test code = 431) EOSINOPHILS RELATIVE PERCENT 6 % (BEAKER) (test code = 432) BASOPHILS RELATIVE PERCENT 1 % (BEAKER) (test code = 437) NEUTROPHILS ABSOLUTE COUNT 3.74 K/ L 1.56-6.13 (BEAKER) (test code = 670) LYMPHOCYTES ABSOLUTE COUNT 3.03 K/ L 1.18-3.74 (BEAKER) (test code = 414) MONOCYTES ABSOLUTE COUNT (BEAKER) 0.66 K/ L 0.24-0.36 H (test code = 415) EOSINOPHILS ABSOLUTE COUNT 0.51 K/ L 0.04-0.36 H (BEAKER) (test code = 416) BASOPHILS ABSOLUTE COUNT (BEAKER) 0.08 K/ L 0.01-0.08 (test code = 417) IMMATURE GRANULOCYTES-RELATIVE 2 % 0-1 H PERCENT (BEAKER) (test code = 2801) COMPREHENSIVE METABOLIC [id number] 14:13:00 Test Item Value Reference Range Interpretation Comments TOTAL PROTEIN 6.6 gm/dL 6.0-8.3 (BEAKER) (test code = 770) ALBUMIN (BEAKER) 3.3 g/dL 3.5-5.0 L (test code = 1145) ALKALINE PHOSPHATASE 423 U/L 40-150 H (BEAKER) (test code = 346) BILIRUBIN TOTAL 2.9 mg/dL 0.2-1.2 H (BEAKER) (test code = 377) SODIUM (BEAKER) (test 140 meq/L 136-145 code = 381) POTASSIUM (BEAKER) 4.2 meq/L 3.5-5.1 (test code = 379) CHLORIDE (BEAKER) 108 meq/L 98-107 H (test code = 382) CO2 (BEAKER) (test 24 meq/L 22-29 code = 355) BLOOD UREA NITROGEN 7 mg/dL 7-21 (BEAKER) (test code = 354) CREATININE (BEAKER) 0.71 mg/dL 0.57-1.25 (test code = 358) GLUCOSE RANDOM 118 mg/dL 70-105 H (BEAKER) (test code = 652) CALCIUM (BEAKER) 8.5 mg/dL 8.4-10.2 (test code = 697) AST (SGOT) (BEAKER) 144 U/L 5-34 H (test code = 353) ALT (SGPT) (BEAKER) 161 U/L 6-55 H (test code = 347) EGFR (BEAKER) (test 80 mL/min/1.73 ESTIMA WILFRID GFR IS code = 1092) sq m NOT ACCURATE CREATININE CLEARANCE IN PREDICTING GLOMERULAR FILTRATION RATE . ESTIMATED GFR I S NOT APPLICABLE FOR DIALYSIS PATIEN TS. Specimen slightly ictericCBC W/PLT COUNT & AUTO [id number] 06:30:00 Test Item Value Reference Range Interpretation Comments WHITE BLOOD CELL COUNT (BEAKER) 8.4 K/ L 3.5-10.5 (test code = 775) RED BLOOD CELL COUNT (BEAKER) 3.46 M/ L 3.93-5.22 L (test code = 761) HEMOGLOBIN (BEAKER) (test code = 10.3 GM/DL 11.2-15.7 L 410) HEMATOCRIT (BEAKER) (test code = 32.1 % 34.1-44.9 L 411) MEAN CORPUSCULAR VOLUME (BEAKER) 92.8 fL 79.4-94.8 (test code = 753) MEAN CORPUSCULAR HEMOGLOBIN 29.8 pg 25.6-32.2 (BEAKER) (test code = 751) MEAN CORPUSCULAR HEMOGLOBIN CONC 32.1 GM/DL 32.2-35.5 L (BEAKER) (test code = 752) RED CELL DISTRIBUTION WIDTH 16.9 % 11.7-14.4 H (BEAKER) (test code = 412) PLATELET COUNT (BEAKER) (test 282 K/CU MM 150-450 code = 756) MEAN PLATELET VOLUME (BEAKER) 9.6 fL 9.4-12.3 (test code = 754) NUCLEATED RED BLOOD CELLS 0 /100 WBC 0-0 (BEAKER) (test code = 413) NEUTROPHILS RELATIVE PERCENT 53 % (BEAKER) (test code = 429) LYMPHOCYTES RELATIVE PERCENT 32 % (BEAKER) (test code = 430) MONOCYTES RELATIVE PERCENT 9 % (BEAKER) (test code = 431) EOSINOPHILS RELATIVE PERCENT 4 % (BEAKER) (test code = 432) BASOPHILS RELATIVE PERCENT 1 % (BEAKER) (test code = 437) NEUTROPHILS ABSOLUTE COUNT 4.47 K/ L 1.56-6.13 (BEAKER) (test code = 670) LYMPHOCYTES ABSOLUTE COUNT 2.71 K/ L 1.18-3.74 (BEAKER) (test code = 414) MONOCYTES ABSOLUTE COUNT (BEAKER) 0.74 K/ L 0.24-0.36 H (test code = 415) EOSINOPHILS ABSOLUTE COUNT 0.32 K/ L 0.04-0.36 (BEAKER) (test code = 416) BASOPHILS ABSOLUTE COUNT (BEAKER) 0.07 K/ L 0.01-0.08 (test code = 417) IMMATURE GRANULOCYTES-RELATIVE 1 % 0-1 PERCENT (BEAKER) (test code = 2801) Urinalysis w/Microscopic + Reflex to [id number] 07:36:00 Test Item Value Reference Range Interpretation Comments Color, UA (test code = 5778-6) Yellow Clarity, UA (test code = 5767-9) Clear Specific [place], UA (test code = 1.030 1.001-1.035 5811-5) pH, UA (test code = 5803-2) 6.0 5.0-8.0 Protein, UA (test code = 68397-5) Negative Negative Glucose, UA (test code = 365) Negative Negative Ketones, UA (test code = 2544-8) Negative Negative Bilirubin, UA (test code = 75739-8) Positive Negative A Blood, UA (test code = 20761-4) Negative Negative Nitrite, UA (test code = 5802-4) Negative Negative Leukocytes, UA (test code = 5799-2) Negative Negative Urobilinogen, UA (test code = 0.2 mg/dL 0.2-1 54417-3) RBC, UA (test code = 97273-1) 1 /HPF WBC, UA (test code = 5821-4) 1 /HPF Specimen Source (test code = 2795) Lab Interpretation (test code = Abnormal 23349-2) [facility] [id number] 07:36:00 Test Item Value Reference Range Interpretation Comments COLOR (BEAKER) (test code = 470) Yellow CLARITY (BEAKER) (test code = 469) Clear SPECIFIC GRAVITY UA (BEAKER) (test 1.030 1.001-1.035 code = 468) PH UA (BEAKER) (test code = 467) 6.0 5.0-8.0 PROTEIN UA (BEAKER) (test code = Negative Negative 464) GLUCOSE UA (BEAKER) (test code = Negative Negative 365) KETONES UA (BEAKER) (test code = Negative Negative 371) BILIRUBIN UA (BEAKER) (test code = Positive Negative A 462) BLOOD UA (BEAKER) (test code = 461) Negative Negative NITRITE UA (BEAKER) (test code = Negative Negative 465) LEUKOCYTE ESTERASE UA (BEAKER) Negative Negative (test code = 466) UROBILINOGEN UA (BEAKER) (test code 0.2 mg/dL 0.2-1.0 = 463) RBC UA (BEAKER) (test code = 519) 1 /HPF WBC UA (BEAKER) (test code = 520) 1 /HPF SOURCE(BEAKER) (test code = 2795) COMPREHENSIVE METABOLIC [id number] 06:58:00 Test Item Value Reference Range Interpretation Comments TOTAL PROTEIN 6.4 gm/dL 6.0-8.3 (BEAKER) (test code = 770) ALBUMIN (BEAKER) 3.3 g/dL 3.5-5.0 L (test code = 1145) ALKALINE PHOSPHATASE 460 U/L 40-150 H (BEAKER) (test code = 346) BILIRUBIN TOTAL 5.5 mg/dL 0.2-1.2 H (BEAKER) (test code = 377) SODIUM (BEAKER) (test 138 meq/L 136-145 code = 381) POTASSIUM (BEAKER) 3.7 meq/L 3.5-5.1 (test code = 379) CHLORIDE (BEAKER) 102 meq/L 98-107 (test code = 382) CO2 (BEAKER) (test 27 meq/L 22-29 code = 355) BLOOD UREA NITROGEN 14 mg/dL 7-21 (BEAKER) (test code = 354) CREATININE (BEAKER) 0.68 mg/dL 0.57-1.25 (test code = 358) GLUCOSE RANDOM 102 mg/dL 70-105 (BEAKER) (test code = 652) CALCIUM (BEAKER) 9.0 mg/dL 8.4-10.2 (test code = 697) AST (SGOT) (BEAKER) 261 U/L 5-34 H (test code = 353) ALT (SGPT) (BEAKER) 212 U/L 6-55 H (test code = 347) EGFR (BEAKER) (test 84 mL/min/1.73 ESTIMA WILFRID GFR IS code = 1092) sq m NOT ACCURATE CREATININE CLEARANCE IN PREDICTING GLOMERULAR FILTRATION RATE . ESTIMATED GFR I S NOT APPLICABLE FOR DIALYSIS PATIEN TS. Specimen slightly ictericCBC W/PLT COUNT & AUTO [id number] 06:07:00 Test Item Value Reference Range Interpretation Comments WHITE BLOOD CELL COUNT (BEAKER) 8.6 K/ L 3.5-10.5 (test code = 775) RED BLOOD CELL COUNT (BEAKER) 4.02 M/ L 3.93-5.22 (test code = 761) HEMOGLOBIN (BEAKER) (test code = 11.6 GM/DL 11.2-15.7 410) HEMATOCRIT (BEAKER) (test code = 36.4 % 34.1-44.9 411) MEAN CORPUSCULAR VOLUME (BEAKER) 90.5 fL 79.4-94.8 (test code = 753) MEAN CORPUSCULAR HEMOGLOBIN 28.9 pg 25.6-32.2 (BEAKER) (test code = 751) MEAN CORPUSCULAR HEMOGLOBIN CONC 31.9 GM/DL 32.2-35.5 L (BEAKER) (test code = 752) RED CELL DISTRIBUTION WIDTH 15.9 % 11.7-14.4 H (BEAKER) (test code = 412) PLATELET COUNT (BEAKER) (test 315 K/CU MM 150-450 code = 756) MEAN PLATELET VOLUME (BEAKER) 9.2 fL 9.4-12.3 L (test code = 754) NUCLEATED RED BLOOD CELLS 0 /100 WBC 0-0 (BEAKER) (test code = 413) NEUTROPHILS RELATIVE PERCENT 59 % (BEAKER) (test code = 429) LYMPHOCYTES RELATIVE PERCENT 29 % (BEAKER) (test code = 430) MONOCYTES RELATIVE PERCENT 8 % (BEAKER) (test code = 431) EOSINOPHILS RELATIVE PERCENT 3 % (BEAKER) (test code = 432) BASOPHILS RELATIVE PERCENT 1 % (BEAKER) (test code = 437) NEUTROPHILS ABSOLUTE COUNT 5.12 K/ L 1.56-6.13 (BEAKER) (test code = 670) LYMPHOCYTES ABSOLUTE COUNT 2.46 K/ L 1.18-3.74 (BEAKER) (test code = 414) MONOCYTES ABSOLUTE COUNT (BEAKER) 0.67 K/ L 0.24-0.36 H (test code = 415) EOSINOPHILS ABSOLUTE COUNT 0.22 K/ L 0.04-0.36 (BEAKER) (test code = 416) BASOPHILS ABSOLUTE COUNT (BEAKER) 0.06 K/ L 0.01-0.08 (test code = 417) IMMATURE GRANULOCYTES-RELATIVE 1 % 0-1 PERCENT (BEAKER) (test code = 2801) CT, [id number] 23:53:00FINAL REPORT INDICATION:Abdominal pain. COMPARISON: None. TECHNIQUE: CT of the Abdomen and Pelvis WITH intravenous contrast. Enteric contrast was used. The exam was performed according to our department dose-optimization protocol, which includes automated exposure control, adjustments of mA and kV according to patient size. Iterative reconstructions are also sometimes employed.FINDINGS:No bowel obstruction or infection is demonstrated. Appendix not identified; no secondary evidence of appendicitis. Diverticuli of the sigmoid colon without diverticulitis. No peritoneal free fluid or free air. The common bile duct is dilated measuring 11 mm in diameter and there is a 5 mm stone at the ampulla. There is hyperenhancement of the biliary epithelium suggesting cholangitis. Gallbladder mildly distended. No intrahepatic biliary ductal dilatation. No evidence of cholecystitis. No pancreatitis. Liver, spleen, adrenal glands unremarkable. Left kidney exophytic cyst measures 6 cm. Norenal mass. Bladder mildly distended and no bladder wall abnormality. Uterus unremarkable. Atherosclerosis of the abdominal aorta and iliac arteries without aneurysm. No suspicious osseous lesion demonstrated. Lumbar vertebral moderate degenerative changes noted. Bibasilar subsegmental atelectasis. IMPRESSION: Obstructing 5 mm biliary stone in the ampulla, with possible cholangitis. No cholecystitis or pancreatitis. Signed: Anthony Childers MDReport Verified Date/Time: 02/16/2019 23:53:17 Reading Location: [facility] [id number] Consult Reading Room Electronically signed by: ANTHONY CHILDERS M.D. 02/16/2019 11:53 PMCT abdomen/pelvis with IV [id number] 23:53:00Interface, External Ris In - 02/16/2019 11:55 PM CDTFINAL REPORT INDICATION:Abdominal pain. COMPARISON: None. TECHNIQUE: CT of the Abdomen and Pelvis WITH intravenous contrast. Enteric contrast was used. The exam was performed according to our department dose-optimization protocol, which includes automated exposure control, adjustments of mA and kV according to patient size. Iterative reconstructions are also sometimes employed. FINDINGS:No bowel obstruction or infection is demonstrated. Appendix not identified; no secondary evidence of appendicitis. Diverticuli of the sigmoid colon without diverticulitis. No peritoneal free fluid or free air. The common bile duct is dilatedmeasuring 11 mm in diameter and there is a 5 mm stone at the ampulla. There is hyperenhancement of the biliary epithelium suggesting cholangitis. Gallbladder mildly distended. No intrahepatic biliary ductal dilatation. No evidence of cholecystitis. No pancreatitis. Liver, spleen, adrenal glands unremarkable. Left kidney exophytic cyst measures 6 cm. No renal mass. Bladder mildly distended and no bladder wall abnormality. Uterus unremarkable. Atherosclerosis of the abdominal aorta and iliac arteries without aneurysm. No suspicious osseous lesion demonstrated. Lumbar vertebral moderate degenerative changes noted. Bibasilar subsegmental atelectasis. IMPRESSION: Obstructing 5 mm biliary stone in the ampulla, with possible cholangitis. No cholecystitis or pancreatitis. Signed: Anthony Childers MDReport Verified Date/Time: 02/16/2019 23:53:17 Reading Location: [facility] B[facility] C013W Consult Reading Room [facility]00 Test Item Value Reference Range Interpretation Comments Lipase (test code = 90 U/L 8-78 H 3040-3) WEN (test code = WEN) Specimen moderately icteric Lab Interpretation (test Abnormal code = 47810-4) [facility] 19:10[facility]00 Test Item Value Reference Range Interpretation Comments LIPASE (BEAKER) (test code = 749) 90 U/L 8-78 H Specimen moderately ictericB-type Natriuretic Factor (BNP)2019-02-16 18:19:00 Test Item Value Reference Range Interpretation Comments BNP (test code = 82448-3) 53 pg/mL 0-100 Lab Interpretation (test code = Normal 62235-8) [facility] (BNP)2019-02-16 18:19:00 Test Item Value Reference Range Interpretation Comments B-TYPE NATRIURETIC PEPTIDE (BEAKER) 53 pg/mL 0-100 (test code = 700) COMPREHENSIVE METABOLIC [id number] 18:15:00 Test Item Value Reference Range Interpretation Comments TOTAL PROTEIN 7.6 gm/dL 6.0-8.3 (BEAKER) (test code = 770) ALBUMIN (BEAKER) 3.8 g/dL 3.5-5.0 (test code = 1145) ALKALINE PHOSPHATASE 510 U/L 40-150 H (BEAKER) (test code = 346) BILIRUBIN TOTAL 5.1 mg/dL 0.2-1.2 H (BEAKER) (test code = 377) SODIUM (BEAKER) (test 137 meq/L 136-145 code = 381) POTASSIUM (BEAKER) 3.8 meq/L 3.5-5.1 (test code = 379) CHLORIDE (BEAKER) 97 meq/L 98-107 L (test code = 382) CO2 (BEAKER) (test 31 meq/L 22-29 H code = 355) BLOOD UREA NITROGEN 17 mg/dL 7-21 (BEAKER) (test code = 354) CREATININE (BEAKER) 0.73 mg/dL 0.57-1.25 (test code = 358) GLUCOSE RANDOM 109 mg/dL 70-105 H (BEAKER) (test code = 652) CALCIUM (BEAKER) 9.9 mg/dL 8.4-10.2 (test code = 697) AST (SGOT) (BEAKER) 235 U/L 5-34 H (test code = 353) ALT (SGPT) (BEAKER) 227 U/L 6-55 H (test code = 347) EGFR (BEAKER) (test 78 mL/min/1.73 ESTIMA WILFRID GFR IS code = 1092) sq m NOT ACCURATE CREATININE CLEARANCE IN PREDICTING GLOMERULAR FILTRATION RATE . ESTIMATED GFR I S NOT APPLICABLE FOR DIALYSIS PATIEN TS. Specimen slightly ictericCBC W/PLT COUNT & AUTO [id number] 17:58:00 Test Item Value Reference Range Interpretation Comments WHITE BLOOD CELL COUNT (BEAKER) 13.3 K/ L 3.5-10.5 H (test code = 775) RED BLOOD CELL COUNT (BEAKER) 4.39 M/ L 3.93-5.22 (test code = 761) HEMOGLOBIN (BEAKER) (test code = 12.7 GM/DL 11.2-15.7 410) HEMATOCRIT (BEAKER) (test code = 39.0 % 34.1-44.9 411) MEAN CORPUSCULAR VOLUME (BEAKER) 88.8 fL 79.4-94.8 (test code = 753) MEAN CORPUSCULAR HEMOGLOBIN 28.9 pg 25.6-32.2 (BEAKER) (test code = 751) MEAN CORPUSCULAR HEMOGLOBIN CONC 32.6 GM/DL 32.2-35.5 (BEAKER) (test code = 752) RED CELL DISTRIBUTION WIDTH 15.2 % 11.7-14.4 H (BEAKER) (test code = 412) PLATELET COUNT (BEAKER) (test 367 K/CU MM 150-450 code = 756) MEAN PLATELET VOLUME (BEAKER) 9.0 fL 9.4-12.3 L (test code = 754) NUCLEATED RED BLOOD CELLS 0 /100 WBC 0-0 (BEAKER) (test code = 413) NEUTROPHILS RELATIVE PERCENT 76 % (BEAKER) (test code = 429) LYMPHOCYTES RELATIVE PERCENT 15 % (BEAKER) (test code = 430) MONOCYTES RELATIVE PERCENT 8 % (BEAKER) (test code = 431) EOSINOPHILS RELATIVE PERCENT 0 % (BEAKER) (test code = 432) BASOPHILS RELATIVE PERCENT 0 % (BEAKER) (test code = 437) NEUTROPHILS ABSOLUTE COUNT 10.09 K/ L 1.56-6.13 H (BEAKER) (test code = 670) LYMPHOCYTES ABSOLUTE COUNT 2.01 K/ L 1.18-3.74 (BEAKER) (test code = 414) MONOCYTES ABSOLUTE COUNT (BEAKER) 1.00 K/ L 0.24-0.36 H (test code = 415) EOSINOPHILS ABSOLUTE COUNT 0.03 K/ L 0.04-0.36 L (BEAKER) (test code = 416) BASOPHILS ABSOLUTE COUNT (BEAKER) 0.03 K/ L 0.01-0.08 (test code = 417) IMMATURE GRANULOCYTES-RELATIVE 1 % 0-1 PERCENT (BEAKER) (test code = 2664)
--- OUTSIDE RECORDS SUMMARY | 2020-01-25 12:12 | XMS REPORT ---
:1940 Author Organization eClinicalWorks Care Team Providers Name Role Phone Cameron Zavala Provider Role Unavailable Allergies, Adverse Reactions, Alerts Substance Reaction Event Type N.K.D.A. Info Not Available Non Drug Allergy Problems Problem Type Condition Code Onset Dates Condition Statu s Assessment Decreased hearing of both ears H91.93 Active Assessment Nail deformity L60.8 Active Assessment Noncompliance w/medication Z91.14 A ctive treatment due to intermit use of medication Assessment Tobacco use disorder F17.200 Active Assessment Loss of balance R26.89 Active Problem Current moderate episode of major F32.1 Active depressive disorder without prior episode Assessment History of CVA (cerebrovascular Z86.73 Active accident) without residual deficits Problem Controlled type 2 diabetes mellitus E11.9 Active without complication, without long-term current use of insulin Assessment GERD without esophagitis K21.9 Act loren Problem Insomnia, unspecified type G47.00 A ctive Problem Bipolar affective disorder, F31.9 Active remission status unspecified Problem Loss of balance R26.89 Active Problem Status post laparoscopic Z90.49 Act loren cholecystectomy Problem Mixed hyperlipidemia E78.2 Active Assessment Controlled type 2 diabetes mellitus E11.9 Active without complication, without long-term current use of insulin Assessment Mixed hyperlipidemia E78.2 Active Problem Decreased hearing of both ears H91.93 Active Assessment Insomnia, unspecified type G47.00 A ctive Problem Tobacco use disorder F17.200 Active Problem GERD without esophagitis K21.9 Act loren Problem History of fall Z91.81 Active Problem History of CVA (cerebrovascular Z86.73 Active accident) without residual deficits Assessment Anxiety F41.9 Active Assessment Current moderate episode of major F32.1 Active depressive disorder without prior episode Assessment History of fall Z91.81 Active Assessment Bipolar affective disorder, F31.9 Active remission status unspecified Problem Anxiety F41.9 Active Problem HTN, goal below 130/80 I10 Activ e Assessment HTN, goal below 130/80 I10 Activ e Medications Medication Code Code Instructions Start End Status Dosage System Date Date Metoprolol NDC 67886583307 25 MG Orally Active 1 ta blet Tartrate Twice a day with food Lisinopril [facility] 10169008147 20 MG Orally Active 1 ta blet Once a day Simvastatin [facility] 93404607436 10 MG Orally Active 1 t ablet Once a day in the evening Omeprazole [facility] 95127280142 20 MG Orally Active 1 ca psule Once a day Metoprolol [facility] 20309621999 25 MG Active TAKE 1 Tartrate TABLET BY MOUTH TWICE A DAY WITH FOOD Fluoxetine HCl [facility] 27712642092 40 MG Orally Active 1 capsule Once a day Clopidogrel [facility] 21365677811 75 MG Orally Active 1 t ablet Bisulfate Once a day Alprazolam [facility] 00329177012 1 MG Orally Active 1 tab let Three times a day Clopidogrel [facility] 54444600242 75 MG Active TAKE 1 Bisulfate TABLET BY MOUTH EVERY DAY Trazodone HCl [facility] 85555310039 100 MG Orally Active 2 tablet Once a day at bedtime Amlodipine [facility] 59491249590 10 MG Orally Active 1 ta blet Besylate Once a day ProAir HFA [facility] 40424591572 108 (90 Base) October Active 2 p uffs as MCG/ACT 2019 needed Inhalation every 6 hrs PRN COugh, Wheezing or shortness of breath Results No Known Results Summary Purpose eClinicalWorks Submission
--- OUTSIDE RECORDS SUMMARY | 2020-01-25 12:12 | XMS REPORT ---
:1940 Author Organization eClinicalWorks Care Team Providers Name Role Phone Cameron Zavala Provider Role Unavailable Allergies No Known Allergies Problems Problem Type Condition Code Onset Dates Condition Statu s Problem Insomnia, unspecified type G47.00 A ctive Problem Bipolar affective disorder, F31.9 Active remission status unspecified Problem Loss of balance R26.89 Active Problem Anxiety F41.9 Active Problem HTN, goal below 130/80 I10 Activ e Problem Current moderate episode of major F32.1 Active depressive disorder without prior episode Problem Controlled type 2 diabetes mellitus E11.9 Active without complication, without long-term current use of insulin Problem Status post laparoscopic Z90.49 Act loren cholecystectomy Problem Mixed hyperlipidemia E78.2 Active Problem Decreased hearing of both ears H91.93 Active Problem Tobacco use disorder F17.200 Active Problem GERD without esophagitis K21.9 Act loren Problem History of fall Z91.81 Active Problem History of CVA (cerebrovascular Z86.73 Active accident) without residual deficits Medications Medication Code Code Instructions Start End Date Status Dosage System Date Azithromycin [facility] 88447482139 250 MG Orally October 26October Active 2 tablets Once a day 2019 on the first day, then 1 tablet daily for 4 days Results No Known Results Summary Purpose eClinicalWorks Submission
[2020-01-25 12:29] LABS: Absolute Lymphocytes (CBC) 2.9 K/uL (0.7-4.9); Basophils % 0.4 % (0-1.3); Hematocrit 40.2 % (36.0-45.0); Lymphocytes % 33.1 % (15.3-44.8); RBC Red Blood Cell Count 4.49 M/uL (3.86-4.86)
[2020-01-25 13:11] LABS: Urine Blood 1+ (NEG); Urine Glucose NEGATIVE (NEG); Urine Protein 1+ (NEG); Urine Specific Gravity 1.015 (1.005-1.030)
[2020-01-25 13:13] LABS: Urine Bacteria <20 /HPF (<20); Urine Culture Reflex Order REFLEXED; Urine RBC <5 /HPF (NONE SEEN)
--- NOTE | 2020-01-25 13:17 | RAD REPORT ---
EXAM DESCRIPTION: CTAbdomen Pelvis W Contrast - 01/25/2020 12:55 pm CLINICAL HISTORY: Abdominal pain. BACK PAIN COMPARISON: No comparisons TECHNIQUE: Biphasic CT imaging of the abdomen and pelvis was performed with 100 ml non-ionic IV cont rast. All CT scans are performed using dose optimization technique as appropriate and may include automated exposure control or mA/KV adjustment according to patient size. FINDINGS: The lung bases are emphysematous but clear. Mild diffuse fatty liver. Cholecystectomy clips are seen. The spleen, pancreas, right adrenal gland a re normal. 12 mm left adrenal nodule is present. Mild right-sided hydronephrosis is present without o bstructing calculus. 5.5 cm benign cyst is present anterior superior left kidney. No bowel obstruction, free air, free fluid or abscess. Sigmoid diverticulosis coli is present without diverticulitis. The appendix is not identified as a discrete structure, however, no secondary findin gs of appendicitis are identified. No evidence of significant lymphadenopathy. Moderate multilevel lumbar degenerative changes are present with vacuum disc degeneration. IMPRESSION: Mild left hydronephrosis is seen without evidence of obstructing stone. Moderate multilevel lumbar spondylosis. Sigmoid diverticulosis coli without diverticulitis.
--- NOTE | 2020-01-25 13:39 | ER ---
Nurse's Notes [facility] Name: Juanis Pyle Age: 79 yrs Sex: Female : 1940 Arrival Date: 01/25/2020 Time: 11:11 Bed 13 Private MD: Cmaeron Zavala Diagnosis: Other hydronephrosis;Flank Pain Presentation: 01/24 11:19 Chief complaint: Patient's son or daughter states: She's been having trouble urinating ca1 for 3 weeks, took AZOs. She's having back pain, fever, nausea and constipation. And there BP at home has been high at 180/110. Reports low back pain more on R. Coronavirus screen: Proceed with normal triage. Patient denies a cough. Patient denies shortness of breath or difficulty breathing. Patient reports a measured and/or subjective temperature greater than 100.4F. Patient denies travel on a cruise ship or to a country the [facility] currently lists as an affected area. Patient denies contact with known and/or suspected case of COVID-19. Ebola Screen: Patient negative for fever greater than or equal to 101.5 degrees Fahrenheit, and additional compatible Ebola Virus Disease symptoms Patient denies exposure to infectious person. Patient denies travel to an Ebola-affected area in the 21 days before illness onset. No symptoms or risks identified at this time. Initial Sepsis Screen: Does the patient meet any 2 criteria? No. Patient's initial sepsis screen is negative. Does the patient have a suspected source of infection? No. Patient's initial sepsis screen is negative. Risk Assessment: Do you want to hurt yourself or someone else? Patient reports no desire to harm self or others. Onset of symptoms was January 25, 2020. 11:19 Method Of Arrival: Wheelchair ca1 11:19 Acuity: DAVID 3 ca1 Historical: - Allergies: : No Known Allergies; ca1 - Home Meds: : alprazolam 1 mg Oral tab 1 tab 3 times per day [Active]; amlodipine 10 mg tab 1 tab ca1 once daily [Active]; lisinopril 10 mg Oral tab 1 tab once daily [Active]; clopidogrel 75 mg Oral tab 1 tab once daily [Active]; Centrum Silver 400-250 mcg Oral chew [Active]; Fish Oil 500 mg Oral cpDR [Active]; fluoxetine 40 mg Oral cap 1 cap once daily [Active]; metoprolol succinate-hydrochlorothiazide 25 mg/12.5 mg Oral 1 tab once daily [Active]; omeprazole 20 mg Oral cpDR 1 cap once daily [Active]; trazodone 100 mg Oral tab 1 tab 3 times per day [Active]; - PMHx: 11:26 CVA; Hypertension; ca1 - PSHx: 11:26 Cholecystectomy; ca1 - Immunization history:: Adult Immunizations up to date, Pneumococcal vaccine is up to date, Flu vaccine is up to date. - Social history:: Smoking status: Patient reports the use of cigarette tobacco products, denies chronic smoking, but will smoke occasionally. Screenin:10 Abuse screen: Denies threats or abuse. Nutritional screening: No deficits noted. em Tuberculosis screening: No symptoms or risk factors identified. Fall Risk None identified. Assessment: 12:10 General: Appears in no apparent distress. comfortable, Behavior is calm, cooperative, em appropriate for age, Denies fever. Pain: Complains of pain in suprapubic area Pain currently is 0 out of 10 on a pain scale. Pain began 3 weeks ago. Neuro: Level of Consciousness is awake, alert, obeys commands, Oriented to person, place, time, situation, Appropriate for age. Cardiovascular: Capillary refill < 3 seconds Patient's skin is warm and dry. Respiratory: Airway is patent Respiratory effort is even, unlabored, Respiratory pattern is regular, symmetrical. GI: Abdomen is flat, Bowel sounds present X 4 quads. : Urine is clear, Reports burning with urination. Derm: Skin is intact, is healthy with good turgor, Skin is pink, warm \T\ dry. Musculoskeletal: Capillary refill < 3 seconds, Range of motion: intact in all extremities. 13:45 Reassessment: Patient appears in no apparent distress at this time. Patient and/or em family updated on plan of care and expected duration. Pain level reassessed. Patient is alert, oriented x 3, equal unlabored respirations, skin warm/dry/pink. 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 em Vital Signs: 11:19 BP 175 / 82; Pulse 70; Resp 17 S; Temp 98.5(TE); Pulse Ox 96% on R/A; Weight 77.11 kg ca1 (R); Height 5 ft. 1 in. (154.94 cm) (R); Pain 3/10; 12:45 BP 192 / 88; Pulse 66; Resp 18; Pulse Ox 96% on R/A; Pain 0/10; em 13:45 BP 184 / 80; Pulse 64; Resp 18; Pulse Ox 96% on R/A; em 11:19 Body Mass Index 32.12 (77.11 kg, 154.94 cm) ca1 ED Course: 11:11 Patient arrived in ED. mr 11:11 Cameron Zavala DO is Private Physician. mr 11:23 Triage completed. ca1 11:26 Arm band placed on right wrist. ca1 11:31 [facility] kb 11:31 Shahriar Aj MD is Attending Physician. kb 11:44 Jorge Coats, RN is Primary Nurse. em 12:10 Patient has correct armband on for positive identification. Placed in gown. Bed in low em position. Call light in reach. Side rails up X2. Pulse ox on. NIBP on. 12:10 Inserted saline lock: 20 gauge in right forearm, using aseptic technique. Blood em collected. 12:10 Initial lab(s) drawn, by me, sent to lab. First set of blood cultures drawn by me, em Urine collected: clean catch specimen, clear. 13:38 Cameron Zavala DO is Referral Physician. kb 14:02 IV discontinued, intact, bleeding controlled, No redness/swelling at site. Pressure em dressing applied. 14:39 No provider procedures requiring assistance completed. em Administered Medications: 14:06 Drug: cloNIDine 0.1 mg Route: PO; em 14:30 Follow up: Response: No adverse reaction em Outcome: 13:38 Discharge ordered by MD. kb 14:40 Discharged to home via wheelchair, with family. em 14:40 Condition: good 14:40 Discharge instructions given to patient, family, Instructed on discharge instructions, follow up and referral plans. Demonstrated understanding of instructions, follow-up care. 14:42 Patient left the ED. em Signatures: Lea Naidu FNP-C FNP-Kirsty Leyla Saunders mr Jorge Coats, RN RN em AcobMarylu RN RN ca1
--- NOTE | 2020-01-25 13:39 | EDPHYS ---
Physician Documentation [facility] Name: Juanis Pyle Age: 79 yrs Sex: Female : 1940 Arrival Date: 01/25/2020 Time: 11:11 Bed 13 Private MD: [facility] ED Physician Shahriar Aj HPI: 01/24 11:45 This 79 yrs old Female presents to ER via Wheelchair with complaints of Back kb Pain, Urinary Problem, Fever, High Blood Pressure. 11:45 The patient complains of pain in the left flank and right flank. The pain does not kb radiate. Onset: The symptoms/episode began/occurred last week. Modifying factors: The symptoms are alleviated by nothing. the symptoms are aggravated by nothing. Associated signs and symptoms: Pertinent positives: fever, urinary frequency. Severity of pain: At its worst the pain was moderate in the emergency department the pain is unchanged. The patient has not experienced similar symptoms in the past. The patient has not recently seen a physician. Pt reports bilateral flank pain for a week with difficulty urinating. Fever started yesterday. Historical: - Allergies: : No Known Allergies; ca1 - Home Meds: : alprazolam 1 mg Oral tab 1 tab 3 times per day [Active]; amlodipine 10 mg tab 1 tab ca1 once daily [Active]; lisinopril 10 mg Oral tab 1 tab once daily [Active]; clopidogrel 75 mg Oral tab 1 tab once daily [Active]; Centrum Silver 400-250 mcg Oral chew [Active]; Fish Oil 500 mg Oral cpDR [Active]; fluoxetine 40 mg Oral cap 1 cap once daily [Active]; metoprolol succinate-hydrochlorothiazide 25 mg/12.5 mg Oral 1 tab once daily [Active]; omeprazole 20 mg Oral cpDR 1 cap once daily [Active]; trazodone 100 mg Oral tab 1 tab 3 times per day [Active]; - PMHx: 11: CVA; Hypertension; ca1 - PSHx: 11: Cholecystectomy; ca1 - Immunization history:: Adult Immunizations up to date, Pneumococcal vaccine is up to date, Flu vaccine is up to date. - Social history:: Smoking status: Patient reports the use of cigarette tobacco products, denies chronic smoking, but will smoke occasionally. ROS: 11:43 Cardiovascular: Negative for chest pain, palpitations, and edema, Respiratory: Negative kb for shortness of breath, cough, wheezing, and pleuritic chest pain, Abdomen/GI: Negative for abdominal pain, nausea, vomiting, diarrhea, and constipation, MS/Extremity: Negative for injury and deformity, Skin: Negative for injury, rash, and discoloration, Neuro: Negative for headache, weakness, numbness, tingling, and seizure. 11:43 Constitutional: Positive for fever. 11:43 : Positive for urinary symptoms, flank pain, small amounts, difficulty urinating. Exam: 11:45 Constitutional: This is a well developed, well nourished patient who is awake, alert, kb and in no acute distress. Head/Face: Normocephalic, atraumatic. Neck: Trachea midline, no thyromegaly or masses palpated, and no cervical lymphadenopathy. Supple, full range of motion without nuchal rigidity, or vertebral point tenderness. No Meningismus. Chest/axilla: Normal chest wall appearance and motion. Nontender with no deformity. No lesions are appreciated. Cardiovascular: Regular rate and rhythm with a normal S1 and S2. No gallops, murmurs, or rubs. Normal PMI, no JVD. No pulse deficits. Respiratory: Lungs have equal breath sounds bilaterally, clear to auscultation and percussion. No rales, rhonchi or wheezes noted. No increased work of breathing, no retractions or nasal flaring. Abdomen/GI: Soft, non-tender, with normal bowel sounds. No distension or tympany. No guarding or rebound. No evidence of tenderness throughout. Skin: Warm, dry with normal turgor. Normal color with no rashes, no lesions, and no evidence of cellulitis. MS/ Extremity: Pulses equal, no cyanosis. Neurovascular intact. Full, normal range of motion. Neuro: Awake and alert, GCS 15, oriented to person, place, time, and situation. Cranial nerves II-XII grossly intact. Motor strength 5/5 in all extremities. Sensory grossly intact. Cerebellar exam normal. Normal gait. 11:45 Back: CVA tenderness, that is moderate, is noted bilaterally. Vital Signs: 11:19 BP 175 / 82; Pulse 70; Resp 17 S; Temp 98.5(TE); Pulse Ox 96% on R/A; Weight 77.11 kg ca1 (R); Height 5 ft. 1 in. (154.94 cm) (R); Pain 3/10; 12:45 BP 192 / 88; Pulse 66; Resp 18; Pulse Ox 96% on R/A; Pain 0/10; em 13:45 BP 184 / 80; Pulse 64; Resp 18; Pulse Ox 96% on R/A; em 11:19 Body Mass Index 32.12 (77.11 kg, 154.94 cm) ca1 MDM: 11:31 Patient medically screened. kb 11:43 Data reviewed: vital signs, nurses notes. Data interpreted: Pulse oximetry: on room air kb is 96 %. Interpretation: normal. 13:36 Counseling: I had a detailed discussion with the patient and/or guardian regarding: the kb historical points, exam findings, and any diagnostic results supporting the discharge/admit diagnosis, the need for outpatient follow up, a family practitioner, to return to the emergency department if symptoms worsen or persist or if there are any questions or concerns that arise at home. 01/24 11:32 Order name: Urine Microscopic Only 01/24 11:44 Order name: CT Abd/Pelvis - IV Contrast Only 01/24 12:19 Order name: Urine Dipstick--Ancillary (enter results) eb 01/24 12:36 Order name: CBC with Automated Diff; Complete Time: 12:48 EDMS 01/24 12:43 Order name: Basic Metabolic Panel; Complete Time: 12:48 EDMS 01/24 13:00 Order name: Lactate; Complete Time: 13:00 EDMS 01/24 13:11 Order name: Procalcitonin; Complete Time: 13:13 EDMS 01/24 13:12 Order name: Urine Dipstick-Ancillary; Complete Time: 13:13 EDMS 01/24 13:14 Order name: Urine Microscopic Only; Complete Time: 13:19 EDMS 01/24 11:32 Order name: Urine Dipstick-Ancillary (obtain specimen); Complete Time: 11:54 kb 01/24 11:44 Order name: IV Saline Lock; Complete Time: 12:16 kb 01/24 11:44 Order name: Labs collected and sent; Complete Time: 12:16 kb 01/24 13:18 Order name: CT; Complete Time: 13:19 EDMS Administered Medications: 14:06 Drug: cloNIDine 0.1 mg Route: PO; em 14:30 Follow up: Response: No adverse reaction em Disposition: 01/25/20 13:38 Discharged to Home. Impression: Other hydronephrosis, Flank Pain. - Condition is Stable. - Discharge Instructions: Hydronephrosis, Flank Pain, [id number]. - Medication Reconciliation Form, Thank You Letter, Antibiotic Education, Prescription Opioid Use form. - Follow up: Emergency Department; When: As needed; Reason: Worsening of condition. Follow up: Cameron Zavala DO; When: 2 - 3 days; Reason: Recheck today's complaints, Continuance of care, Re-evaluation by your physician. Addendum: 01/29/2020 16:29 Co-signature as Attending Physician, Shahriar Aj MD I agree with the assessment and k dr plan of care. Signatures: Dispatcher [employer] EDIN Lea Naidu, SEPTIC TANK SETTER-C SEPTIC TANK SETTER-CkShahriar Pagan MD MD [facility] Jorge Coats RN RN [facility] RN ca1 Corrections: (The following items were deleted from the chart) 01/24 14:42 13:38 01/25/2020 13:38 Discharged to Home. Impression: Other hydronephrosis; Flank em Pain. Condition is Stable. Forms are Medication Reconciliation Form, Thank You Letter, Antibiotic Education, Prescription Opioid Use. Follow up: Emergency Department; When: As needed; Reason: Worsening of condition. Follow up: Cameron Zavala; When: 2 - 3 days; Reason: Recheck today's complaints, Continuance of care, Re-evaluation by your physician. kb
[2020-01-25] MEDS ORDERED: cloNIDine HCL 0.1 MG TAB ONE (14:03)
[2020-01-25 14:49] VITALS: TEMP 98.5; O2SAT 96
[2020-01-25 14:52] VITALS: BP 184/80
[2020-01-25 21:59] LABS: Urine Blood 1+ (NEG); Urine Glucose NEGATIVE (NEG); Urine Protein 1+ (NEG); Urine Specific Gravity 1.015 (1.005-1.030)
== END 2020-01-25 14:42 | disposition home or self-care (01) ==
LOC: ER 11:07
DX: N13.39 Other hydronephrosis (principal); R50.9 Fever, unspecified; I10 Essential (primary) hypertension; F17.210 Nicotine dependence, cigarettes, uncomplicated; Z86.73 Personal history of transient ischemic attack (TIA), and cerebral infarction without residual deficits
CPT/HCPCS: 87040 ×2; 87088; 85025; 87086; 80048; 36415; 83605; 84145; 74177; 99284; Q9967; 81003; 81015

== ENCOUNTER 2020-03-15 14:58 | Emergency (ER) | payer OTHER ==
--- OUTSIDE RECORDS SUMMARY | 2020-03-15 15:01 | XMS REPORT | Clinical Summary ---
:1940 Author Organization [facility] Address [address] [place] [address] Care Team Providers Name Role Phone Unavailable Primary Care Provider Unavailable Allergies No Known Allergies Medications Medication Sig Dispensed Refills Start Date End Date Status omeprazole (PRILOSEC) Take 20 mg by mouth 11 12/29/19 19 Active 20 MG capsule daily. ALPRAZolam (XANAX) 1 Take 1 mg by mouth 5 02/01/2019 Active MG tablet 3 (three) times daily. traZODone (DESYREL) Take 100 mg by 5 01/30/2019 Active 100 MG tablet mouth nightly. metoprolol Take 25 mg by mouth 0 01/28/2019 Active (LOPRESSOR) 25 MG 2 (two) times daily tablet with breakfast and dinner. amLODIPine (NORVASC) Take 10 mg by mouth 0 9 Active 10 MG tablet daily. FLUoxetine (PROZAC) Take 80 mg by mouth 5 01/30/2019 Active 40 MG capsule every morning. lisinopril Take 20 mg by mouth 3 01/27/2019 Active (PRINIVIL,ZESTRIL) 20 daily. MG tablet clopidogrel (PLAVIX) Take 75 mg by mouth 0 9 Active 75 mg tablet daily. Active Problems Problem Noted Date Gall bladder stones 02/16/2019 Social History Tobacco Use Types Packs/Day Years Used Date Never Assessed Sex Assigned at Date Recorded Not on file Job Start Date Occupation Industry Not on file Not on file Not on file Travel History Travel Start Travel End No recent travel history available. Last Filed Vital Signs Not on file Plan of Treatment Not on file Results Not on fileafter 03/15/2019 Insurance Payer Benefit Plan / Group Subscriber ID Type Phone A ddress [employer] - MEDICARE MGD [employer] MEDICARE ADV xxxxxxxxx Maps Contracted CARE Advance Directives For more information, please contact:[place] [id number] [place], [place] [phone] Code Status Date Activated Date Inactivated Comments Full Code 02/16/2019 3:49 PM 02/21/2019 12:47 PM This code status was determined by: Patient
--- OUTSIDE RECORDS SUMMARY | 2020-03-15 15:02 | XMS REPORT ---
[...] Date Status Dosage System Date Metoprolol [facility] 06058961557 25 MG Orally Active 1 ta blet Tartrate Twice a day with food Results No Known Results Summary Purpose eClinicalWorks Submission
--- OUTSIDE RECORDS SUMMARY | 2020-03-15 15:02 | XMS REPORT ---
[...] Status Dosage System Date Date Metoprolol NDC 77258582887 25 MG Orally Active 1 ta blet Tartrate Twice a day with food Lisinopril [facility] 43059401718 20 MG Orally Active 1 ta blet Once a day Simvastatin [facility] 99785008826 10 MG Orally Active 1 t ablet Once a day in the evening Omeprazole [facility] 92824249363 20 MG Orally Active 1 ca psule Once a day Metoprolol [facility] 52054189038 25 MG Active TAKE 1 Tartrate TABLET BY MOUTH TWICE A DAY WITH FOOD Fluoxetine HCl [facility] 02865380456 40 MG Orally Active 1 capsule Once a day Clopidogrel [facility] 21420822320 75 MG Orally Active 1 t ablet Bisulfate Once a day Alprazolam [facility] 89679910649 1 MG Orally Active 1 tab let Three times a day Clopidogrel [facility] 42074648694 75 MG Active TAKE 1 Bisulfate TABLET BY MOUTH EVERY DAY Trazodone HCl [facility] 76641017682 100 MG Orally Active 2 tablet Once a day at bedtime Amlodipine [facility] 08636070123 10 MG Orally Active 1 ta blet Besylate Once a day ProAir HFA [facility] 20090320259 108 (90 Base) October Active 2 p uffs as MCG/ACT 2019 needed Inhalation every 6 hrs PRN COugh, Wheezing or shortness of breath Results No Known Results Summary Purpose eClinicalWorks Submission
--- OUTSIDE RECORDS SUMMARY | 2020-03-15 15:02 | XMS REPORT | Continuity of Care Document ---
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 tpati disorder disorder ent without without Clinics prior prior episode episode Insomnia, Insomnia, Problem Active [facility] unspecifie unspecifie Monique kes - d type d type [facility] Clinics Controlled Controlled Problem Active [facility] 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 l without without Outpati complicati complicati en t on, on, Clinics without without long-term long-term current current use of use of insulin insulin History of History of Problem Active [facility] fall fall [facility] History of History of Problem Active [facility] CVA CVA [facility] - (cerebrova (cerebrova Me moria scular scular l accident) accident) Outp ati without without ent residual residual Clinic s deficits deficits Loss of Loss of Problem Active [facility] balance balance [facility] Tobacco Tobacco Problem Active [facility] use use [facility] - disorder disorder Mem[facility] a l Outpati ent Clinics Anxiety Anxiety Problem Active [facility] Bipolar Bipolar Problem Active [facility] affective affective [facility] - disorder, disorder, Emerson deng remission remission l status status Outpati unspecifie unspecifie en t d d Clinics GERD GERD Problem Active [facility] without without [facility] - esophagiti esophagiti Me moria s s l [facility] ent Clinics HTN, goal HTN, goal Problem Active [facility] below below [facility] - 130/80 130/[address] [facility] Status Status Problem Active [facility] post post [facility] - laparoscop laparoscop Me moria ic ic l cholecyste cholecyste Ou tpati ctomy ctomy ent Clinics Mixed Mixed Problem Active [facility] hyperlipid hyperlipid Monique kes - emia emia 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 Social History Social Habit Start Date Stop Date Quantity Comments Source Sex Assigned At [facility] Medications Ordered Filled Start Stop Current Ordering Indication Dosage Frequency Signature Comments Components Source Medication Medication Date Date Medication? Clinician (SIG) Name Name ProAir HFA ProAir HFA Yes Cameron [address] [facility] 4-06 [facility] needed [facility] - 00:00: [address] ent [facility] clopidogrel 2018- Yes 75mg QD Take [address] [facility] (PLAVIX) 75 7-22 by mouth Luke s - mg tablet 00:00: daily. Medica l [address] [place] [address] ALPRAZolam Yes 1mg [id number] Take [address] [facility] (XANAX) 1 7-17 [id number] by mouth 3 [facility] - MG tablet 00:00: 3D (three) Medic al 00 times [place] daily. traZODone Yes 100mg QD Take [address] (DESYREL) 7-15 mg by [facility] - 100 MG 00:00: mouth Medical tablet 00 nightly. [place] FLUoxetine 0 Yes 80mg QD Take [address] (PROZAC) 40 7-15 by mouth Luke s - MG capsule 00:00: every Medica l 00 morning. [place] metoprolol 0 Yes 25mg Take [address] (LOPRESSOR) 7-13 by mouth 2 Monique kes - 25 MG 00:00: (two) Medical tablet 00 times [place] daily with breakfast and dinner. lisinopril 2018-0 Yes 20mg QD Take [address] (PRINIVIL,Z 7-12 by mouth Luke s - ESTRIL) 20 00:00: daily. Medic al MG tablet 00 [place] amLODIPine Yes 10mg QD Take [address] (NORVASC) 7-09 by mouth [facility] - 10 MG 00:00: daily. Medical tablet 00 [place] omeprazole Yes 20mg QD Take [address] (PRILOSEC) 6-12 by mouth [facility] - 20 MG 00:00: daily. Medical capsule 00 [place] Metoprolol Metoprolol Yes Cameron TAKE [address] [facility] Tartrate Tartrate [place] TABLET BY L ukes - MOUTH [facility] TWICE A l DAY WITH [facility] FO[facility] ent Clinics Lisinopril Lisinopril Yes Cameron [address] [facility] [address] [facility] [place] [facility] Simvastatin Simvastatin Yes Cameron [address] [facility] [place] in the [facility] - evening [facility] Omeprazole Omeprazole Yes Cameron [address] [facility] Zavala [facility] Fluoxetine Fluoxetine Yes Cameron [address] [facility] HCl HCl [facility] [place] Clopidogrel Clopidogrel Yes Cameron TAKE [address] [facility] Bisulfate Bisulfate [place] TABLET BY [facility] - MOUTH [facility] EVERY DAY [facility] Alprazolam Alprazolam Yes Cameron [address] [facility] [place] [facility] Trazodone Trazodone Yes Cameron [address] [address] HCl HCl Zavala at bedtime [facility] Amlodipine Amlodipine Yes Cameron [address] [facility] Besylate Besylate [facility]ala [facility] Immunizations Ordered Filled Immunization Date Status Comments Sour e Immunization Name Name FluAD FluAD 2019-04-[address] [facility] - [facility]00 [facility] Procedures This patient has no known procedures. Encounters Start End Encounter Admission Attending Care Care Encounter Source Date/Time Date/Time Type Type Clinicians Facility Department ID 2020-01-25 2020-01-25 Outpatient Yumiko Trujillo [id number] [facility] 08:11:00 08:11:00 [facility] [employer] [facility] Medicine Medicine [facility] Clinics 2020-01-01 2020-01-01 [facility] [id number] 08:15:00 08:15:00 [place] [facility] [employer] [facility] - Drive [facility] Medicine l Medicine Outpati ent Clinics 2019-12-29 2019-12-29 [facility] [id number] 11[facility]28:00 11:28:[address] [facility] [address] [facility] - Road [facility] Medicine l Medicine Outpati ent Clinics 2019-10-27 2019-10-27 [facility] [id number] 14:46:00 14:46:00 [place] [employer] [facility] - [facility] Medicine l Medicine Outpati ent Clinics 2019-10-25 2019-10-25 [facility] [id number] 11:43:00 11:43:00 [place] [employer] Medicine l Medicine Outpati ent Clinics 2019-10-23 2019-10-23 [facility] [id number] 11:45:00 11:45:00 [place] [facility] Medicine l Medicine Outpati ent Clinics 2019-10-23 2019-10-23 [facility] [id number] 08:55:00 08:55:00 [place] [employer] [facility] Medicine l Medicine Outpati ent Clinics 2019-08-07 2019-08-07 [facility] [id number] 15:30:00 15:30:00 [place] [employer] Medicine l Medicine Outpati ent Clinics 2019-07-17 2019-07-17 [facility] [id number] 10:55:00 10:55:00 [place] [employer] Medicine l Medicine Outpati ent Clinics 2019-07-11 2019-07-11 [facility] [id number] 11:05:00 11:05:00 [place] [employer] Medicine l Medicine Outpati ent Clinics 2019-04-06 2019-04-06 [facility] [id number] 14:30:00 14:30:00 [place] [employer] Medicine l Medicine Outpati ent Clinics 2019-03-16 2019-03-16 [facility] [id number] 12:09:00 12:09:00 [facility] 2019-03-13 2019-03-13 [facility] [id number] 09:55:00 09:55:00 [facility] Clinics 2019-03-06 2019-03-06 [facility] [id number] 14:45:00 14:45:00 [facility] Outpati ent Clinics 2019-01-04 2019-01-04 [facility] [id number] 16:00:00 16:00:00 [facility] 2018-10-26 2018-10-26 [facility] [id number] 13:30:00 13:30:00 [facility] Results Test Description Test Time Test Comments Results Result Sourc e Comments TISSUE EXAM 2019-02-23 Surgical Pathology 10:13:00 Report Case: [id number] Authorizing Provider: Marie Green MD Collected: 02/20/2019 1448 Ordering Location: [facility] Received: 02/21/2019 1406 SERVICES Pathologist: Mignon Winter MD Specimen: Gallbladder GALLBLADDER, CHOLECYSTECTOMY: - CHRONIC CHOLECYSTITIS AND CHOLELITHIASIS - ONE BENIGN LYMPH NODE Signing Pathologist Direct Phone Line: [phone] ly signed by Mignon Winter MD on 02/23/2019 at 10:13 [id number] pancreatitis GALLBLADDERReceived in formalin labeled "gallbladder" consists of a 9.5 x 3 x 1.5 cm previously [...] sectioned, and no lesions are grossly identified. Snowboard Instructor sections along with the cystic duct margin and one lymph node are submitted in cassettes A1-A2. TH/ewPerformed. BLOOD CULTURE 2019-02-21 20:01:00 Test Item Value Reference Range Interpretation Comme nts CULTURE (BEAKER) (test code = 1095) No growth in 5 days HEPATIC FUNCTION [id number] 07:14:00 Test Item Value Reference Range Interpretation [...] 94 U/L 6-55 H 347) BASIC METABOLIC [id number] 07:14:00 Test Item Value Reference Range Interpretation [...] PATIEN TS. CBC W/PLT COUNT & AUTO [id number] 06:29:00 Test Item Value Reference Range Interpretation [...] 0-1 PERCENT (BEAKER) (test code = 2801) COMPREHENSIVE METABOLIC [id number] 07:05:00 Test Item Value Reference Range Interpretation [...] S NOT APPLICABLE FOR DIALYSIS PATIEN TS. COMPREHENSIVE METABOLIC [id number] 07:59:00 Test Item Value Reference Range Interpretation [...] PATIEN TS. CBC W/PLT COUNT & AUTO [id number] 05:50:00 Test Item Value Reference Range Interpretation [...] (BEAKER) (test code = 2801) COMPREHENSIVE METABOLIC [id number] 14:13:00 Test Item Value Reference Range Interpretation [...] Specimen slightly ictericCBC W/PLT COUNT & AUTO [id number] 06:30:00 Test Item Value Reference Range Interpretation [...] 0-1 PERCENT (BEAKER) (test code = 2801) URINALYSIS W/ REFLEX URINE [id number] 07:36:00 Test Item Value Reference Range Interpretation [...] SOURCE(BEAKER) (test code = 2795) COMPREHENSIVE METABOLIC [id number] 06:58:00 Test Item Value Reference Range Interpretation [...] Specimen slightly ictericCBC W/PLT COUNT & AUTO [id number] 06:07:00 Test Item Value Reference Range Interpretation [...] PERCENT (BEAKER) (test code = 2801) CT, [id number] 23:53:00FINAL REPORT INDICATION:Abdominal pain. COMPARISON: None. TECHNIQUE: [...] possible cholangitis. No cholecystitis or pancreatitis. Signed: Christiano Hardy [facility] Verified Date/Time: 02/16/2019 23:53:17 Reading Location: [address] Consult Reading Room Electronically signed by: CHRISTIANO HARDY M.D. on02/16/2019 11:53 [id number] 19:10:00 Test Item Value Reference Range Interpretation Comments LIPASE (BEAKER) (test code = 749) 90 U/L 8-78 H Specimen moderately ictericB-TYPE NATRIURETIC FACTOR (BNP)2019-02-16 18:19:00 Test Item Value Reference Range Interpretation Comments B-TYPE NATRIURETIC PEPTIDE (BEAKER) 53 pg/mL 0-100 (test code = 700) COMPREHENSIVE METABOLIC [id number] 18:15:00 Test Item Value Reference Range Interpretation [...] Specimen slightly ictericCBC W/PLT COUNT & AUTO [id number] 17:58:00 Test Item Value Reference Range Interpretation [...] % 0-1 PERCENT (BEAKER) (test code = 9105)
--- OUTSIDE RECORDS SUMMARY | 2020-03-15 15:03 | XMS REPORT ---
:1940 Author Organization [employer] Care Team Providers Name Role Phone Lucas Cameron Provider Role Unavailable Allergies No Known Allergies [...] Z86.73 Active accident) without residual deficits Medications No Known Medications Results No Known Results Summary Purpose [employer] Submission
[2020-03-15] MEDS ORDERED: NA CHLORIDE 0.9% 250 ML ONE (16:35)
[2020-03-15] MEDS ORDERED: TRAMADOL HCL 50 MG TAB ONE (16:36)
[2020-03-15 16:54] LABS: Absolute Lymphocytes (CBC) 3.5 K/uL (0.7-4.9); Basophils % 1.3 % (0-1.3); Hematocrit 38.2 % (36.0-45.0); Lymphocytes % 42.4 % (15.3-44.8); MPV 7.9 fL (7.6-11.3); RBC Red Blood Cell Count 4.31 M/uL (3.86-4.86)
[2020-03-15 17:02] LABS: BUN Blood Urea Nitrogen 17 mg/dL (7-18); Bicarbonate 30 mmol/L (21-32); Glucose Level 109 mg/dL (74-106); Potassium 3.1 mmol/L (3.5-5.1); Sodium Level 144 mmol/L (136-145)
[2020-03-15 17:52] LABS: Urine Blood NEGATIVE (NEG); Urine Glucose NEGATIVE (NEG); Urine Protein 1+ (NEG)
--- NOTE | 2020-03-15 18:06 | ER ---
Nurse's Notes [facility] Name: Juanis Pyle Age: 79 yrs Sex: Female : 1940 Arrival Date: 03/15/2020 Time: 15:01 Bed 19 Private MD: Diagnosis: Chronic Pain Presentation: 03/15 15:14 Chief complaint: Pt's daughter "she's been hurting all over for years but 3 weeks ago aa5 she fell and the pain just got worse and they haven't diagnosed her with rheumatoid arthritis yet but I think she has it". Pt c/o pain to will hips, will knees, and lateral aspect of lower rib cage area. 15:14 Coronavirus screen: Client denies travel out of the [place] in the last 14 days. At this aa5 time, the client does not indicate any symptoms associated with coronavirus-19. Ebola Screen: Patient negative for fever greater than or equal to 101.5 degrees Fahrenheit, and additional compatible Ebola Virus Disease symptoms. Initial Sepsis Screen: Does the patient meet any 2 criteria? No. Patient's initial sepsis screen is negative. Does the patient have a suspected source of infection? No. Patient's initial sepsis screen is negative. Risk Assessment: Do you want to hurt yourself or someone else? Patient reports no desire to harm self or others. Onset of symptoms was February 2020. 15:14 Acuity: DAVID 3 aa5 15:14 Method Of Arrival: Wheelchair aa5 Historical: - Allergies: 15:15 No Known Allergies; aa5 - PMHx: 15:14 CVA; Hypertension; aa5 15:14 Memory problems; aa5 - PSHx: 15:14 Cholecystectomy; aa5 - Immunization history:: Adult Immunizations unknown. - Social history:: Smoking status: Patient reports the use of cigarette tobacco products, denies chronic smoking, but will smoke occasionally. Screenin:04 Abuse screen: Denies threats or abuse. Nutritional screening: No deficits noted. ll2 Tuberculosis screening: No symptoms or risk factors identified. Fall Risk IV access (20 points). Ambulatory Aid- Crutches/Cane/Walker (15 pts). Gait- Weak (10 pts.). Total [place]vas Fall Scale indicates High Risk Score (45 or more points). Side Rails Up X 2 Placed Close to Nursing Station Frequent Obs/Assessments Occuring. Assessment: 15:56 General: Appears in no apparent distress. Behavior is calm, cooperative, appropriate ll2 for age. Pain: Complains of pain in xyphoid area and mid-sternal area Pain does not radiate. Pain currently is 5 out of 10 on a pain scale. Quality of pain is described as shooting, pt states the pain is in her bones on her spine and sternum Pain began years ago. Is intermittent, Alleviated by nothing. Neuro: Level of Consciousness is awake, alert, obeys commands, Oriented to person, place, time, situation. Cardiovascular: Capillary refill < 3 seconds Patient's skin is warm and dry. Respiratory: Airway is patent Respiratory effort is even, unlabored, Respiratory pattern is regular, symmetrical. GI: No signs and/or symptoms were reported involving the gastrointestinal system. : No signs and/or symptoms were reported regarding the genitourinary system. EENT: No signs and/or symptoms were reported regarding the EENT system. Derm: Skin is intact, is healthy with good turgor, Skin is dry, Skin is pink, warm \\T\\ dry. Musculoskeletal: Circulation, motion, and sensation intact. Range of motion: intact in all extremities. 17:35 Reassessment: Patient appears in no apparent distress at this time. Patient and/or ll2 family updated on plan of care and expected duration. Pain level reassessed. Patient is alert, oriented x 3, equal unlabored respirations, skin warm/dry/pink. pt states her pain has decreased from a 5/10 to a 3/10. Vital Signs: 15:14 BP 143 / 66; Pulse 75; Resp 18 S; Temp 98.3(O); Pulse Ox 96% on R/A; Weight 77.11 kg aa5 (R); Height 5 ft. 1 in. (154.94 cm) (R); 15:59 BP 128 / 70; Pulse 70; Resp 14; Pulse Ox 95% on R/A; Pain 5/10; ll2 16:59 BP 155 / 69; Pulse 68; Resp 14; Pulse Ox 96% on R/A; Pain 5/10; ll2 17:59 BP 141 / 67; Pulse 66; Resp 15; Pulse Ox 95% on R/A; Pain 3/10; ll2 15:14 Body Mass Index 32.12 (77.11 kg, 154.94 cm) aa5 ED Course: 15:01 Patient arrived in ED. mr 15:14 Arm band placed on. aa5 15:20 Triage completed. aa5 15:40 Gisele Castillo, RN is Primary Nurse. jl7 16:00 Patient has correct armband on for positive identification. Bed in low position. Call ll2 light in reach. Side rails up X2. 16:05 Placed in gown. ll2 16:05 Pulse ox on. NIBP on. ll2 16:09 Shahriar Aj MD is Attending Physician. kdr 16:48 Inserted saline lock: 20 gauge in right forearm, using aseptic technique. Blood ll2 collected. 16:48 Initial lab(s) drawn, by or, sent to lab. Straight cath inserted, using sterile ll2 technique, 16 Fr. Specimen obtained. Returned clear yellow urine. Patient tolerated well. 17:03 Assisted to bedside commode. ll2 17:58 No provider procedures requiring assistance completed. ll2 18:16 IV discontinued, intact, bleeding controlled, No redness/swelling at site. Pressure jl7 dressing applied. Administered Medications: 16:30 Drug: NS 0.9% 250 ml Route: IV; Rate: bolus; Site: right forearm; ll2 16:45 Follow up: IV Status: Completed infusion; IV Intake: 250ml ll2 16:47 Drug: traMADol 50 mg Route: PO; ll2 17:02 Follow up: Response: No adverse reaction; RASS: Alert and Calm (0) ll2 Intake: 16:45 IV: 250ml; Total: 250ml. ll2 Outcome: 18:06 Discharge ordered by . kdr 18:08 Discharged to home via wheelchair. ll2 18:08 Condition: stable 18:08 Discharge instructions given to patient, family, Instructed on discharge instructions, follow up and referral plans. Demonstrated understanding of instructions, follow-up care. 18:16 Discharge instructions given to Instructed on medication usage, Demonstrated jl7 understanding of medications, Prescriptions given X 1. 18:17 Patient left the ED. jl7 Signatures: Shahriar Aj MD MD kdr Rivera, Mary mr AllisonKhloe, RN RN 5 Gisele Castillo, RN RN jl7 Priya Harmon RN RN ll2
--- NOTE | 2020-03-15 18:06 | EDPHYS ---
Physician Documentation [facility] Name: Juanis Pyle Age: 79 yrs Sex: Female : 1940 Arrival Date: 03/15/2020 Time: 15:01 Bed 19 Private MD: ED Physician Shahriar Aj HPI: 03/15 18:30 This 79 yrs old Female presents to ER via Wheelchair with complaints of Pain kdr All Over. 18:30 The patient has been hurting all over for three years and in the past few weeks she has kdr had low back pain and joint pain in her hips and knees. 19:04 Onset: The symptoms/episode began/occurred 3 year(s) ago. Severity of symptoms: At kdr their worst the symptoms were mild moderate just prior to arrival, in the emergency department the symptoms are unchanged. The patient has experienced similar episodes in the past, chronically. The patient has not recently seen a physician. The patient is most uncomfortable in her low back diffusely . Historical: - Allergies: 15:15 No Known Allergies; aa5 - PMHx: 15:14 CVA; Hypertension; aa5 15:14 Memory problems; aa5 - PSHx: 15:14 Cholecystectomy; aa5 - Immunization history:: Adult Immunizations unknown. - Social history:: Smoking status: Patient reports the use of cigarette tobacco products, denies chronic smoking, but will smoke occasionally. ROS: 19:04 Constitutional: Negative for fever, chills, and weight loss, Eyes: Negative for injury, kdr pain, redness, and discharge, ENT: Negative for injury, pain, and discharge, Neck: Negative for injury, pain, and swelling, Cardiovascular: Negative for chest pain, palpitations, and edema, Respiratory: Negative for shortness of breath, cough, wheezing, and pleuritic chest pain, Abdomen/GI: Negative for abdominal pain, nausea, vomiting, diarrhea, and constipation, : Negative for injury, bleeding, discharge, and swelling, Skin: Negative for injury, rash, and discoloration, Neuro: Negative for headache, weakness, numbness, tingling, and seizure activity. Psych: Negative for depression, anxiety, suicide ideation, homicidal ideation, and hallucinations, Allergy/Immunology: Negative for hives, rash, and allergies, Endocrine: Negative for neck swelling, polydipsia, polyuria, polyphagia, and marked weight changes, Hematologic/Lymphatic: Negative for swollen nodes, abnormal bleeding, and unusual bruising. 19:04 Back: Positive for injury or acute deformity, pain at rest, pain with movement, of the low back area. 19:04 MS/extremity: Positive for Generalized joint pain in her lower extrermities. Exam: 19:04 Constitutional: This is a well developed, well nourished patient who is awake, alert, kdr and in no acute distress. Head/Face: Normocephalic, atraumatic. Eyes: Pupils equal round and reactive to light, extra-ocular motions intact. Lids and lashes normal. Conjunctiva and sclera are non-icteric and not injected. Cornea within normal limits. Periorbital areas with no swelling, redness, or edema. Neck: Trachea midline, no thyromegaly or masses palpated, and no cervical lymphadenopathy. Supple, full range of motion without nuchal rigidity, or vertebral point tenderness. No Meningismus. Chest/axilla: Normal chest wall appearance and motion. Nontender with no deformity. No lesions are appreciated. Respiratory: Lungs have equal breath sounds bilaterally, clear to auscultation and percussion. No rales, rhonchi or wheezes noted. No increased work of breathing, no retractions or nasal flaring. Abdomen/GI: Soft, non-tender, with normal bowel sounds. No distension or tympany. No guarding or rebound. No evidence of tenderness throughout. Back: No spinal tenderness. No costovertebral tenderness. Full range of motion. Skin: Warm, dry with normal turgor. Normal color with no rashes, no lesions, and no evidence of cellulitis. Neuro: Awake and alert, GCS 15, oriented to person, place, time, and situation. Cranial nerves II-XII grossly intact. Motor strength 5/5 in all extremities. Sensory grossly intact. Cerebellar exam normal. Normal gait. Psych: Awake, alert, with orientation to person, place and time. Behavior, mood, and affect are within normal limits. Vital Signs: 15:14 BP 143 / 66; Pulse 75; Resp 18 S; Temp 98.3(O); Pulse Ox 96% on R/A; Weight 77.11 kg aa5 (R); Height 5 ft. 1 in. (154.94 cm) (R); 15:59 BP 128 / 70; Pulse 70; Resp 14; Pulse Ox 95% on R/A; Pain 5/10; ll2 16:59 BP 155 / 69; Pulse 68; Resp 14; Pulse Ox 96% on R/A; Pain 5/10; ll2 17:59 BP 141 / 67; Pulse 66; Resp 15; Pulse Ox 95% on R/A; Pain 3/10; ll2 15:14 Body Mass Index 32.12 (77.11 kg, 154.94 cm) aa5 MDM: 18:06 Patient medically screened. kdr 19:06 Data reviewed: vital signs, nurses notes, lab test result(s). Counseling: I had a kdr detailed discussion with the patient and/or guardian regarding: the historical points, exam findings, and any diagnostic results supporting the discharge/admit diagnosis, lab results, the need for outpatient follow up. 03/15 16:20 Order name: CBC with Diff; Complete Time: 17:37 kdr 03/15 16:20 Order name: Chem 7; Complete Time: 17:37 kdr 03/15 16:20 Order name: Urine Dipstick-Ancillary (obtain specimen): CAth; Complete Time: 16:47 kdr 03/15 16:51 Order name: Urine Dipstick--Ancillary (enter results); Complete Time: 18:03 eb Administered Medications: 16:30 Drug: NS 0.9% 250 ml Route: IV; Rate: bolus; Site: right forearm; ll2 16:45 Follow up: IV Status: Completed infusion; IV Intake: 250ml ll2 16:47 Drug: traMADol 50 mg Route: PO; ll2 17:02 Follow up: Response: No adverse reaction; RASS: Alert and Calm (0) ll2 Disposition: 03/15/20 18:06 Discharged to Home. Impression: Chronic Pain. - Condition is Stable. - Discharge Instructions: Chronic Back Pain, Musculoskeletal Pain, Pain Without a Known Cause, Back Pain, Adult, [id number]. - Prescriptions for Tramadol 50 mg Oral Tablet - take 1 tablet by ORAL route every 8 hours as needed; 10 tablet. - Medication Reconciliation Form, Thank You Letter, Prescription Opioid Use form. - Follow up: Private Physician; When: 2 - 3 days; Reason: If symptoms return, Further diagnostic work-up, Recheck today's complaints, Continuance of care, Re-evaluation by your physician. - Problem is new. - Symptoms have improved. Signatures: Dispatcher [employer] EDMS Shahriar Aj MD MD kdr Khloe Allison RN RN aa5 Gisele Castillo RN RN jl7 Priya Hamron, RN RN ll2 Corrections: (The following items were deleted from the chart) 18:17 18:06 03/15/2020 18:06 Discharged to Home. Impression: Chronic Pain. Condition is jl7 Stable. Forms are Medication Reconciliation Form, Thank You Letter, Antibiotic Education, Prescription Opioid Use. Follow up: Private Physician; When: 2 - 3 days; Reason: If symptoms return, Further diagnostic work-up, Recheck today's complaints, Continuance of care, Re-evaluation by your physician. Problem is new. Symptoms have improved. kdr
[2020-03-19 14:48] VITALS: TEMP 98.3
[2020-03-19 14:51] VITALS: BP 141/67; O2SAT 95
== END 2020-03-15 18:17 | disposition home or self-care (01) ==
LOC: ER 14:58
DX: G89.29 Other chronic pain (principal); I10 Essential (primary) hypertension; Z72.0 Tobacco use
CPT/HCPCS: 85025; 80048; 36415; 81003; 51702; 96374; 99284; J7050

== ENCOUNTER 2020-06-03 14:13 | Emergency (ER) | payer OTHER ==
--- OUTSIDE RECORDS SUMMARY | 2020-06-03 14:15 | XMS REPORT | Clinical Summary ---
:1940 Author Organization [facility] Address [address] [place] [address] Care Team Providers Name Role Phone Unavailable [...] Assigned at Date Recorded Not on file Last Filed Vital Signs Not on file Plan of Treatment Health Maintenance Due Date Last Done Comments PNEUMOCOCCAL 65+ YRS (1 of 1 - [id number]) 2007 MEDICARE ANNUAL WELLNESS (YEAR 2 or FIRST YEAR if no 07/20/2019 IPPE) INFLUENZA VACCINE (#1) 2020 Results Not on fileafter 06/03/2019 Insurance Payer Benefit Plan / Subscriber ID Effective Phone Address T ype Group Dates HUMANA - HUMANA [id number] 2018-Surya Edward Contracted MEDICARE MGD MEDICARE ADV nt CARE Advance Directives For more information, please contact: [phone] Code Status Date Activated Date Inactivated Comments Full Code 02/16/2019 3:49 PM 02/21/2019 12:47 PM This code status was determined by: Patient
--- OUTSIDE RECORDS SUMMARY | 2020-06-03 14:16 | XMS REPORT ---
:1940 Author Organization [employer] Care Team Providers Name Role Phone Lucas Cameron Provider Role Unavailable Allergies No Known Allergies Problems Problem Type Condition Code Onset Dates Condition Statu s Problem Current moderate episode of major F32.1 Active depressive disorder without prior episode Problem Insomnia, unspecified type G47.00 A ctive Problem Controlled type 2 diabetes mellitus E11.9 Active without complication, without long-term current use of insulin Problem Decreased hearing of both ears H91.93 Active Assessment Pain in left hip M25.552 Active Problem Status post laparoscopic Z90.49 Act loren cholecystectomy Assessment Pain in right hip M25.551 Active Assessment Low back pain M54.5 Active Problem Other chronic pain G89.29 Active Problem HTN, goal below 130/80 I10 Activ e Problem Loss of balance R26.89 Active Problem Mixed hyperlipidemia E78.2 Active Problem Anxiety F41.9 Active Assessment Pain in right knee M25.561 Active Assessment Multiple joint pain M25.50 Active Assessment Other chronic pain G89.29 Active Assessment Pain in left knee M25.562 Active Problem GERD without esophagitis K21.9 Act loren Problem Tobacco use disorder F17.200 Active Problem History of CVA (cerebrovascular Z86.73 Active accident) without residual deficits Assessment Thoracic spine pain M54.6 Active Problem Bipolar affective disorder, F31.9 Active remission status unspecified Problem History of fall Z91.81 Active Medications No Known Medications Results No Known Results Summary Purpose [employer] Submission
--- OUTSIDE RECORDS SUMMARY | 2020-06-03 14:16 | XMS REPORT ---
[...] hearing of both ears H91.93 Active Problem Status post laparoscopic Z90.49 Act loren cholecystectomy Problem Other chronic pain G89.29 Active Problem HTN, goal below 130/80 I10 Activ e Problem Loss of balance R26.89 Active Problem Mixed hyperlipidemia E78.2 Active Problem Anxiety F41.9 Active Problem GERD without esophagitis K21.9 Act loren Problem Tobacco use disorder F17.200 Active Problem History of CVA (cerebrovascular Z86.73 Active accident) without residual deficits Problem Bipolar affective disorder, F31.9 Active remission status unspecified Problem History of fall Z91.81 Active Medications No Known Medications Results No Known Results Summary Purpose [employer] Submission
--- OUTSIDE RECORDS SUMMARY | 2020-06-03 14:16 | XMS REPORT ---
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
--- OUTSIDE RECORDS SUMMARY | 2020-06-03 14:16 | XMS REPORT ---
:1940 Author Organization [employer] Care Team Providers Name Role Phone Lucas Cameron Provider Role Unavailable Allergies, Adverse Reactions, Alerts [...] Active Assessment Loss of balance R26.89 Active Assessment History of CVA (cerebrovascular Z86.73 Active accident) without residual deficits Problem History of CVA (cerebrovascular Z86.73 Active accident) without residual deficits Assessment GERD without esophagitis K21.9 Act loren Problem History of fall Z91.81 Active Assessment Insomnia, unspecified type G47.00 A ctive Problem Current moderate episode of major F32.1 Active depressive disorder without prior episode Problem Insomnia, unspecified type G47.00 A ctive Problem Controlled type 2 diabetes mellitus E11.9 Active without complication, without long-term current use of insulin Problem Decreased hearing of both ears H91.93 Active Problem Status post laparoscopic Z90.49 Act loren cholecystectomy Assessment History of fall Z91.81 Active Assessment Controlled type 2 diabetes mellitus E11.9 Active without complication, without long-term current use of insulin Problem Other chronic pain G89.29 Active Assessment Mixed hyperlipidemia E78.2 Active Problem HTN, goal below 130/80 I10 Activ e Problem Loss of balance R26.89 Active Problem Mixed hyperlipidemia E78.2 Active Problem Anxiety F41.9 Active Assessment Current moderate episode of major F32.1 Active depressive disorder without prior episode Assessment HTN, goal below 130/80 I10 Activ e Assessment Bipolar affective disorder, F31.9 Active remission status unspecified Assessment Anxiety F41.9 Active Problem GERD without esophagitis K21.9 Act loren Problem Tobacco use disorder F17.200 Active Problem Bipolar affective disorder, F31.9 Active remission status unspecified Medications Medication Code Code Instructions Start End Status Dosage System Date Date Clopidogrel [facility] 85004673893 75 MG Orally Active 1 t ablet Bisulfate Once a day Metoprolol [facility] 60304854370 25 MG Orally Active 1 ta blet Tartrate Twice a day with food Simvastatin [facility] 91192409243 10 MG Active TAKE 1 TABLET BY MOUTH EVERY DAY IN THE EVENING Amlodipine [facility] 54454423548 10 MG Active TAKE 1 Besylate TABLET BY MOUTH EVERY DAY Clopidogrel [facility] 89678671493 75 MG Active TAKE 1 Bisulfate TABLET BY MOUTH EVERY DAY Lisinopril [facility] 04005545474 20 MG Orally Active 1 ta blet Once a day ProAir HFA [facility] 72213687229 108 (90 Base) October Active 2 p uffs as MCG/ACT 2019 needed Inhalation every 6 hrs PRN COugh, Wheezing or shortness of breath Trazodone HCl [facility] 63839049211 100 MG Orally Active 2 tablet Once a day at bedtime Lisinopril [facility] 26507276144 20 MG Active TAKE 1 TABLET BY MOUTH EVERY DAY Omeprazole [facility] 64056003120 20 MG Orally Active 1 ca psule Once a day Amlodipine [facility] 60636615457 10 MG Orally Active 1 ta blet Besylate Once a day Alprazolam [facility] 75629880896 1 MG Orally Active 1 tab let Three times a day Simvastatin [facility] 41677100992 10 MG Orally Active 1 t ablet Once a day in the evening Fluoxetine HCl [facility] 54960708119 40 MG Orally Active 1 capsule Once a day Results No Known Results Summary Purpose eClinicalWorks Submission
--- OUTSIDE RECORDS SUMMARY | 2020-06-03 14:16 | XMS REPORT | Continuity of Care Document ---
:1940 Author Organization [facility] t Address [address] [place] [address] Care Team Providers Name Role Phone CATALINA POSADA Attending Clinician Unavailable CATALINA POSADA Admitting Clinician Unavailable Problems Condition Condition Condition Status Onset Resolution Last Treating Co mments Source Name Details Category Date Date Treatment Clinician Date Gall Gall Disease Active [facility] bladder bladder 8 [facility] - stones stones 00:00: [place] [id number] Center Current Current Problem Active [facility] [...] esophagiti esophagiti Me moria s s l [facility] ent Clinics HTN, goal HTN, goal Problem Active [facility] below below [facility] - 130/80 130/80 [facility] ent [facility] Status Status Problem Active [facility] post post [facility] - laparoscop laparoscop Me moria ic ic l cholecyste cholecyste Ou tpati ctomy ctomy ent Clinics Mixed Mixed Problem Active [facility] hyperlipid hyperlipid Monique kes - emia emia [facility] ent [facility] Decreased Decreased Problem Active [facility] hearing of hearing of Monique kes - both ears both ears [facility] ent [facility] Other Other Problem Active [facility] chronic chronic [facility] - pain pain [facility] Allergies, Adverse Reactions, Alerts This patient has no known allergies or adverse reactions. Social History Social Habit Start Date Stop Date Quantity Comments Source Sex Assigned [facility] Medications Ordered Filled Start Stop Current Ordering Indication Dosage Frequency Signature Comments Components Source Medication Medication Date Date Medication? Clinician (SIG) Name Name ProAir HFA ProAir HFA Yes Cameron [address] [facility] 4-06 [facility] needed [facility] - 00:00: [address] clopidogrel 2018-0 Yes 75mg QD Take [address] [facility] (PLAVIX) 75 7-22 by mouth Luke s - mg tablet 00:00: daily. Medica l 00 [place] ALPRAZolam 0 Yes 1mg [id number] Take [address] [facility] (XANAX) 1 7-17 [id number] by mouth 3 [facility] - MG tablet 00:00: 3D (three) Medic al 00 times Center daily. traZODone 2018-0 Yes 100mg QD Take [address] (DESYREL) 7-15 mg by [facility] - 100 MG 00:00: mouth Medical tablet 00 nightly. [place] FLUoxetine 0 Yes 80mg QD Take [address] (PROZAC) 40 7-15 by mouth Luke s - MG capsule 00:00: every Medica l 00 morning. [place] metoprolol 2018-0 Yes 25mg Take [address] (LOPRESSOR) 7-13 by mouth 2 Monique kes - 25 MG 00:00: (two) Medical tablet 00 times Center daily with breakfast and dinner. lisinopril 2019 Yes 20mg QD Take [address] (PRINIVIL,Z 7-12 by mouth Luke s - ESTRIL) 20 00:00: daily. Medic al MG tablet 00 Center amLODIPine Yes 10mg QD Take [address] (NORVASC) 7-09 by mouth [facility] - 10 MG 00:00: daily. Medical tablet 00 Center omeprazole Yes 20mg QD Take [address] (PRILOSEC) 6-12 by mouth [facility] - 20 MG 00:00: daily. Medical capsule 00 [place] Metoprolol Metoprolol Yes Cameron [address] [facility] Tartrate Tartrate Zavala with food [facility] - [facility] ent [facility] Lisinopril Lisinopril Yes Cameron TAKE [address] [facility] Zavala TABLET BY [facility]ukes - MOUTH Memoria EVERY DAY [facility] ent [facility] Simvastatin Simvastatin Yes Cameron [address] [facility] in the [facility] Omeprazole Omeprazole Yes Cameron [address] [facility] Fluoxetine Fluoxetine Yes Cameron [address] [facility] HCl HCl [facility] [facility] Clopidogrel Clopidogrel Yes Cameron [address] [facility] Bisulfate Bisulfate Zavala [facility] Alprazolam Alprazolam Yes Cameron [address] [facility] Zavala [facility] - [facility] ent [facility] Trazodone Trazodone Yes Cameron [address] [address] HCl HCl Zavala at bedtime [facility] Amlodipine Amlodipine Yes Cameron [address] [facility] Besylate Besylate Zavala [facility] - [facility] ent [facility] Amlodipine Amlodipine Yes Cameron TAKE [address] [facility] Besylate Besylate Zavala TABLET BY L [facility] Clopidogrel Clopidogrel Yes Cameron TAKE [address] [facility] Bisulfate Bisulfate Zavala TABLET BY [facility] - MOUTH Memoria EVERY DAY [facility] ent [facility] Immunizations Ordered Filled Immunization Date Status Comments [facility] e Immunization Name Name Sher Olivarez 2019-04-[address] [facility] - 00[facility]00 [facility] Outpatient [facility] Procedures This patient has no known procedures. Plan of Care Planned Activity Planned Date Details Comments Source Future Scheduled 2020-03-19 INFLUENZA VACCINE (#1) [facility] - Test 00:00:00 [code = INFLUENZA Medical Ce nter VACCINE (#1)] Future Scheduled 2019-07-[address] [facility] - Test 00:00:00 WELLNESS (YEAR 2 or Medical Center FIRST YEAR if no IPPE) [code = MEDICARE ANNUAL WELLNESS (YEAR 2 or FIRST YEAR if no IPPE)] Future Scheduled 2007 PNEUMOCOCCAL 65+ YRS [facility] - Test 00:00:00 (1 of 1 - Medical Center [id number]) [code = PNEUMOCOCCAL 65+ YRS (1 of 1 - [id number] PCV13)] Encounters Start End Encounter Admission Attending Care Care Encounter Source Date/Time Date/Time Type Type Clinicians Facility Department ID 2020-04-02 2020-04-02 Outpatient Yumiko Calderont [id number] [facility] 13:18:00 13:18:00 [employer] [facility] Family Medicine l Medicine Outpati ent Clinics 2020-04-01 2020-04-01 [facility] [id number] 14:30:00 14:30:00 t [employer] [facility] Family Medicine l Medicine Outpati ent Clinics 2020-03-19 2020-03-19 [facility] [id number] 16:17:00 16:17:00 t [employer] [facility] Family Medicine l Medicine Outpati ent Clinics 2020-03-15 2020-03-15 [facility] [id number] 14:18:00 14:18:00 t [employer] [facility] Family Medicine l Medicine Outpati ent Clinics 2020-03-15 2020-03-15 [facility] [id number] 11:43:00 11:43:00 t [employer] [facility] Family Medicine l Medicine Outpati ent Clinics 2020-01-25 2020-01-25 [facility] [id number] 08:11:00 08:11:00 t [employer] [facility] Family Medicine l Medicine Outpati ent Clinics 2020-01-01 2020-01-01 [facility] [id number] 08:15:00 08:15:[address] Luke s - Drive [facility] Medicine l Medicine Outpati ent Clinics 2019-12-29 2019-12-29 [facility] [id number] 11:28:00 11:28:00 t [facility] s - Road [facility] l Medicine Outpati ent Clinics 2019-10-27 2019-10-27 [facility] [id number] 14:46:00 14:46:00 t [employer] Luke s - Drive [facility] Medicine l Medicine Outpati ent Clinics 2019-10-25 2019-10-25 [facility] [id number] 11:43:00 11:43:[address] [employer] - Drive [facility] Medicine Outpati ent Clinics 2019-10-23 2019-10-23 [facility] [id number] 11:45:00 11:45:00 t [employer] - Drive [facility] Medicine Outpati ent Clinics 2019-10-23 2019-10-23 [facility] [id number] 08:55:00 08:55:00 t [employer] - Drive [facility] Medicine Outpati ent Clinics 2019-08-07 2019-08-07 [facility] [id number] 15:30:00 15:30:00 t [employer] - Drive [facility] Medicine l Medicine Outpati ent Clinics 2019-07-17 2019-07-17 [facility] [id number] 10:55:00 10:55:00 t [employer] - Drive [facility] Medicine Medicine Outpati ent Clinics 2019-07-11 2019-07-11 [facility] [id number] 11:05:00 11:05:00 t [employer] - Drive [facility] Medicine Outpati ent Clinics 2019-04-06 2019-04-06 [facility] [id number] 14:30:00 14:30:00 t [employer] - Drive [facility] l Medicine Outpati ent Clinics 2019-03-16 2019-03-16 [facility] [id number] 12:09:00 12:09:00 [facility] ent Clinics 2019-03-13 2019-03-13 [facility] [id number] 09:55:00 09:55:00 [facility] ent [facility] 2019-03-06 2019-03-06 [facility] [id number] [facility] 14:45:00 14:45:00 [facility] ent Clinics 2019-01-04 2019-01-04 [facility] [id number] 16:00[facility]00 [facility] 2018-10-26 2018-10-26 [facility] [id number] 13:30:00 13:30:00 [facility] Results Test Description Test Time Test Comments Results Result Sourc e Comments TISSUE EXAM 2019-02-23 Surgical Pathology 10:13:00 Report Case: [id number] Authorizing Provider: Marie Green MD Collected: 02/20/2019 1448 Ordering Location: [facility] Received: 02/21/2019 1406 SERVICES Pathologist: Mignon Winter MD Specimen: Gallbladder GALLBLADDER, CHOLECYSTECTOMY: - CHRONIC CHOLECYSTITIS AND CHOLELITHIASIS - ONE BENIGN LYMPH NODE Signing Pathologist Direct Phone Line: [phone] ly signed by Mignon Winter MD on 02/23/2019 at 10:13 [id number] pancreatitis GALLBLADDERReceived in formalin labeled "gallbladder" consists [...] sectioned, and no lesions are grossly identified. Slate Cutter sections along with the cystic duct margin and one lymph node are submitted in cassettes A1-A2. TH/ewPerformed. BLOOD CULTURE 2019-02-21 20:01:00 Test Item Value Reference Range Interpretation Comme nts CULTURE (BEAKER) (test code = 1095) No growth in 5 days HEPATIC FUNCTION [id number] 07:14:00 Test Item Value Reference Range Interpretation [...] 94 U/L 6-55 H 347) BASIC METABOLIC [id number] 07:14:00 Test Item Value Reference Range Interpretation [...] PATIEN TS. CBC W/PLT COUNT & AUTO [id number] 06:29:00 Test Item Value Reference Range Interpretation [...] (BEAKER) (test code = 2801) COMPREHENSIVE METABOLIC [id number] 07:05:00 Test Item Value Reference Range Interpretation [...] APPLICABLE FOR DIALYSIS PATIEN TS. COMPREHENSIVE METABOLIC [id number] 07:59:00 Test Item Value Reference Range Interpretation [...] PATIEN TS. CBC W/PLT COUNT & AUTO [id number] 05:50:00 Test Item Value Reference Range Interpretation [...] (BEAKER) (test code = 2801) COMPREHENSIVE METABOLIC [id number] 14:13:00 Test Item Value Reference Range Interpretation [...] Specimen slightly ictericCBC W/PLT COUNT & AUTO [id number] 06:30:00 Test Item Value Reference Range Interpretation [...] code = 2801) URINALYSIS W/ REFLEX URINE [id number] 07:36:00 Test Item Value Reference Range Interpretation [...] SOURCE(BEAKER) (test code = 2795) COMPREHENSIVE METABOLIC [id number] 06:58:00 Test Item Value Reference Range Interpretation [...] Specimen slightly ictericCBC W/PLT COUNT & AUTO [id number] 06:07:00 Test Item Value Reference Range Interpretation [...] PERCENT (BEAKER) (test code = 2801) CT, [id number] 23:53:00FINAL REPORT INDICATION:Abdominal pain. COMPARISON: None. TECHNIQUE: [...] No cholecystitis or pancreatitis. Signed: Christiano Hardy MDReport Verified Date/Time: 02/16/2019 23:53:17 Reading Location: [address] Consult Reading Room Electronically signed by: CHRISTIANO HARDY M.D. on02/16/2019 11:53 [id number] 19:10:00 Test Item Value Reference Range Interpretation Comments LIPASE (BEAKER) (test code = 749) 90 U/L 8-78 H Specimen moderately ictericB-TYPE NATRIURETIC FACTOR (BNP)2019-02-16 18:19:00 Test Item Value Reference Range Interpretation Comments B-TYPE NATRIURETIC PEPTIDE (BEAKER) 53 pg/mL 0-100 (test code = 700) COMPREHENSIVE METABOLIC [id number] 18:15:00 Test Item Value Reference Range Interpretation [...] Specimen slightly ictericCBC W/PLT COUNT & AUTO [id number] 17:58:00 Test Item Value Reference Range Interpretation [...] % 0-1 PERCENT (BEAKER) (test code = 7124)
--- OUTSIDE RECORDS SUMMARY | 2020-06-03 14:16 | XMS REPORT ---
[...] goal below 130/80 I10 Activ e Assessment Multiple joint pain M25.50 Active Problem Current moderate episode of major F32.1 Active depressive disorder without prior episode Problem Controlled type 2 diabetes mellitus E11.9 Active without complication, without long-term current use of insulin Medications No Known Medications Results No Known Results Summary Purpose eClinicalWorks Submission
[2020-06-03 18:13] LABS: Absolute Lymphocytes (CBC) 2.8 K/uL (0.7-4.9); Basophils % 0.4 % (0-1.3); Hematocrit 41.9 % (36.0-45.0); Lymphocytes % 27.8 % (15.3-44.8); MPV 7.9 fL (7.6-11.3); RBC Red Blood Cell Count 4.71 M/uL (3.86-4.86)
[2020-06-03 18:20] LABS: ALT/SGPT 39 U/L (12-78); AST/SGOT 37 U/L (15-37); Albumin 3.4 g/dL (3.4-5.0); Alkaline Phosphatase 65 U/L (45-117); BUN Blood Urea Nitrogen 12 mg/dL (7-18); Bicarbonate 32 mmol/L (21-32); Bilirubin Direct 0.2 mg/dL (0-0.2); Bilirubin Total 0.5 mg/dL (0.2-1.0); Glucose Level 92 mg/dL (74-106); Lipase 435 U/L (73-393); Potassium 3.4 mmol/L (3.5-5.1); Protein, Total 7.6 g/dL (6.4-8.2); Sodium Level 140 mmol/L (136-145)
[2020-06-03 19:13] LABS: Urine Bacteria <20 /HPF (<20); Urine Culture Reflex Order NOT NEEDED; Urine Mucus 1+ /HPF (NONE SEEN); Urine RBC <5 /HPF (NONE SEEN)
[2020-06-03 19:13] LABS: Urine Blood NEGATIVE (NEG); Urine Glucose NEGATIVE (NEG); Urine Protein 1+ (NEG)
--- NOTE | 2020-06-03 19:21 | RAD REPORT ---
EXAM DESCRIPTION: CTAbdomen Pelvis W Contrast - 06/03/2020 7:11 pm CLINICAL HISTORY: Abdominal pain. ABD PAIN COMPARISON: Abdomen Pelvis W Contrast dated 01/25/2020 TECHNIQUE: Biphasic CT imaging of the abdomen and pelvis was performed with 100 ml non-ionic IV cont rast. All CT scans are performed using dose optimization technique as appropriate and may include automated exposure control or mA/KV adjustment according to patient size. FINDINGS: The lung bases are clear.Cholecystectomy clips. The liver, spleen, pancreas, adrenal glands and kidneys are within normal limits. 6 cm cyst is presen t left kidney. No stone or hydronephrosis. No bowel obstruction, free air, free fluid or abscess. Sigmoid diverticulosis coli is present with se veral surrounding lymph nodes. There is also a focal somewhat prominent are wall thickening noted in sigmoid colon measuring 3 cm in length. The appendix is normal. No evidence of significant lymphaden opathy. No suspicious bony findings. IMPRESSION: 3 cm length of focally thickened sigmoid colon is present there are several diverticula also present in the region along with small pericolonic lymph node. The diagnosis of concern would be a colon malignancy. Recommend followup colonoscopy for further assessment. Elsewhere, no acute process identified.
--- NOTE | 2020-06-03 19:49 | EDPHYS ---
Physician Documentation [facility] Name: Juanis Pyle Age: 80 yrs Sex: Female : 1940 Arrival Date: 06/03/2020 Time: 14:18 Bed 14 Private MD: Cameron Zavala ED Physician Francisco Stokes HPI: 06/03 17:33 This 80 yrs old Female presents to ER via Wheelchair with complaints of pm1 Abdominal Pain, Nausea/Vomiting/Diarrhea. 17:33 The patient presents with abdominal pain in the right upper quadrant. Onset: The pm1 symptoms/episode began/occurred 3 day(s) ago. The symptoms do not radiate. Associated signs and symptoms: Pertinent positives: diarrhea, nausea, Pertinent negatives: chest pain, dysuria, fever, shortness of breath, vomiting. Modifying factors: The symptoms are alleviated by nothing, the symptoms are aggravated by food. The patient has experienced similar episodes in the past, multiple times, today's symptoms are similar, to previous UTI. Historical: - Allergies: 14:26 No Known Allergies; ll1 - PMHx: 14:26 CVA; Hypertension; Memory problems; ll1 - PSHx: 14:26 Cholecystectomy; ll1 - Immunization history:: Flu vaccine is not up to date. - Social history:: Smoking status: Patient reports the use of cigarette tobacco products, smokes one-half pack cigarettes per day. ROS: 17:33 Constitutional: Negative for fever, chills, and weight loss, Neck: Negative for injury, pm1 pain, and swelling, Cardiovascular: Negative for chest pain, palpitations, and edema, Respiratory: Negative for shortness of breath, cough, wheezing, and pleuritic chest pain. 17:33 Back: Negative for injury and pain, : Negative for injury, bleeding, discharge, and swelling, MS/Extremity: Negative for injury and deformity, Skin: Negative for injury, rash, and discoloration, Neuro: Negative for headache, weakness, numbness, tingling, and seizure. 17:33 Abdomen/GI: Positive for abdominal pain, nausea, diarrhea, Negative for vomiting, constipation. Exam: 17:33 Constitutional: This is a well developed, well nourished patient who is awake, alert, pm1 and in no acute distress. Head/Face: Normocephalic, atraumatic. 17:33 Back: No spinal tenderness. No costovertebral tenderness. Full range of motion. Skin: Warm, dry with normal turgor. Normal color with no rashes, no lesions, and no evidence of cellulitis. MS/ Extremity: Pulses equal, no cyanosis. Neurovascular intact. Full, normal range of motion. 17:33 Cardiovascular: Exam negative for acute changes, Rate: normal, Rhythm: regular, Pulses: no pulse deficits are appreciated. 17:33 Respiratory: Exam negative for acute changes, respiratory distress, shortness of breath. 17:33 Neuro: Exam negative for acute changes, Orientation: is normal, Mentation: is normal, Motor: is normal, moves all fours. Vital Signs: 14:24 BP 132 / 96; Pulse 70; Resp 17; Temp 98.1; Pulse Ox 97% on R/A; Weight 86.18 kg; Height ll1 5 ft. 2 in. (157.48 cm); Pain 7/10; 17:30 BP 141 / 76; Pulse 75; Resp 16; Pulse Ox 98% on R/A; ph 18:56 BP 160 / 73; Pulse 72; Resp 16; Pulse Ox 99% on R/A; ph 19:52 BP 159 / 70; Pulse 70; Resp 18; Pulse Ox 98% ; ea 14:24 Body Mass Index 34.75 (86.18 kg, 157.48 cm) ll1 MDM: 17:09 Patient medically screened. pm1 17:36 Data reviewed: vital signs. Data interpreted: Pulse oximetry: on room air is 97 %. pm1 Interpretation: normal. 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 06/03 17:11 Order name: Basic Metabolic Panel; Complete Time: 18:36 pm1 06/03 17:11 Order name: CBC with Diff; Complete Time: 18:36 pm1 06/03 17:11 Order name: Hepatic Function; Complete Time: 18:36 pm1 06/03 17:11 Order name: Lipase; Complete Time: 18:36 pm1 06/03 17:11 Order name: Urine Microscopic Only; Complete Time: 19:37 pm1 06/03 18:52 Order name: Urine Dipstick--Ancillary (enter results); Complete Time: 19:37 bd 06/03 17:11 Order name: IV Saline Lock; Complete Time: 18:09 pm1 06/03 17:11 Order name: Labs collected and sent; Complete Time: 18:09 pm1 06/03 17:11 Order name: Urine Dipstick-Ancillary (obtain specimen); Complete Time: 18:50 pm1 06/03 17:11 Order name: Straight Cath - Urine; Complete Time: 18:50 pm1 06/03 17:11 Order name: CT Abd/Pelvis - IV Contrast Only; Complete Time: 19:37 pm1 Administered Medications: No medications were administered Disposition: 06/03/20 19:49 Discharged to Home. Impression: Unspecified abdominal pain - possible colon malignancy. - Condition is Stable. - Discharge Instructions: Abdominal Pain, Adult, Colonoscopy. - Prescriptions for Tramadol 50 mg Oral Tablet - take 1 tablet by ORAL route every 8 hours as needed; 12 tablet. - Medication Reconciliation Form, Thank You Letter, Antibiotic Education, Prescription Opioid Use form. - Follow up: Emergency Department; When: As needed; Reason: Worsening of condition. Follow up: Private Physician; When: 2 - 3 days; Reason: Recheck today's complaints, Continuance of care, Re-evaluation by your physician. - Problem is new. - Symptoms have improved. Addendum: 06/05/2020 18:54 Co-signature as Attending Physician, Francisco Stokes MD. r n Signatures: Dispatcher [employer] EDMS Francisco Stokes MD MD rn Marinas, Patrick, DOUGLAS PROGRAM ANALYST pm1 Marily Acevedo RN RN ea Lewis, Lynsay, RN RN ll1 Corrections: (The following items were deleted from the chart) 06/03 19:59 19:49 06/03/2020 19:49 Discharged to Home. Impression: Unspecified abdominal pain - ea possible colon malignancy. Condition is Stable. Forms are Medication Reconciliation Form, Thank You Letter, Antibiotic Education, Prescription Opioid Use. Follow up: Emergency Department; When: As needed; Reason: Worsening of condition. Follow up: Private Physician; When: 2 - 3 days; Reason: Recheck today's complaints, Continuance of care, Re-evaluation by your physician. Problem is new. Symptoms have improved. pm1
--- NOTE | 2020-06-03 19:49 | ER ---
Nurse's Notes [facility] Name: Juanis Pyle Age: 80 yrs Sex: Female : 1940 Arrival Date: 06/03/2020 Time: 14:18 Bed 14 Private MD: Cameron Zavala Diagnosis: Unspecified abdominal pain-possible colon malignancy Presentation: 06/03 14:24 Chief complaint: Patient states: Abdominal pain with nausea and Diarrhea for 3 days. no ll1 fever. Coronavirus screen: Client denies travel out of the [place] in the last 14 days. diarrhea, nausea, Client presents with at least one sign or symptom that may indicate coronavirus-19. Standard/surgical mask placed on the client. Ebola Screen: Patient denies travel to an Ebola-affected area in the 21 days before illness onset. Initial Sepsis Screen: Does the patient meet any 2 criteria? No. Patient's initial sepsis screen is negative. Does the patient have a suspected source of infection? Yes: Acute abdominal pain. Risk Assessment: Do you want to hurt yourself or someone else? Patient reports no desire to harm self or others. Onset of symptoms was June 01, 2020. 14:24 Method Of Arrival: Wheelchair ll1 14:24 Acuity: DAVID 3 ll1 Historical: - Allergies: 14:26 No Known Allergies; ll1 - PMHx: 14:26 CVA; Hypertension; Memory problems; ll1 - PSHx: 14:26 Cholecystectomy; ll1 - Immunization history:: Flu vaccine is not up to date. - Social history:: Smoking status: Patient reports the use of cigarette tobacco products, smokes one-half pack cigarettes per day. Screenin:10 Abuse screen: Denies threats or abuse. Denies injuries from another. Nutritional ph screening: No deficits noted. Tuberculosis screening: No symptoms or risk factors identified. Fall Risk None identified. Assessment: 18:09 General: Appears in no apparent distress. comfortable, well groomed, Behavior is calm, ph cooperative, appropriate for age, Denies fever. Pain: Complains of pain in abdomen. Neuro: Level of Consciousness is awake, alert, obeys commands, Oriented to person, place, time, situation. Cardiovascular: Capillary refill < 3 seconds in bilateral fingers Patient's skin is warm and dry. Respiratory: Airway is patent Respiratory effort is even, unlabored, Respiratory pattern is regular, symmetrical, Denies cough, shortness of breath. GI: Abdomen is round non-distended, Reports lower abdominal pain, upper abdominal pain, diarrhea, nausea, vomiting. : No signs and/or symptoms were reported regarding the genitourinary system. Derm: Skin is intact, is healthy with good turgor, Skin is pink, warm \T\ dry. Musculoskeletal: Circulation, motion, and sensation intact. Range of motion: intact in all extremities. 18:57 Reassessment: Patient appears in no apparent distress at this time. Patient and/or ph family updated on plan of care and expected duration. Pain level reassessed. Patient is alert, oriented x 3, equal unlabored respirations, skin warm/dry/pink. 19:17 Reassessment: Patient and/or family updated on plan of care and expected duration. Pain ea level reassessed. Patient is alert, oriented x 3, equal unlabored respirations, skin warm/dry/pink. Pt returned from CT. 19:58 Reassessment: Patient and/or family updated on plan of care and expected duration. Pain ea level reassessed. Patient is alert, oriented x 3, equal unlabored respirations, skin warm/dry/pink. Discharge instruction given to patient verbalized the understanding of instruction. Pt left ED via wheelchair tolerating well. Vital Signs: 14:24 BP 132 / 96; Pulse 70; Resp 17; Temp 98.1; Pulse Ox 97% on R/A; Weight 86.18 kg; Height ll1 5 ft. 2 in. (157.48 cm); Pain 7/10; 17:30 BP 141 / 76; Pulse 75; Resp 16; Pulse Ox 98% on R/A; ph 18:56 BP 160 / 73; Pulse 72; Resp 16; Pulse Ox 99% on R/A; ph 19:52 BP 159 / 70; Pulse 70; Resp 18; Pulse Ox 98% ; ea 14:24 Body Mass Index 34.75 (86.18 kg, 157.48 cm) ll1 ED Course: 14:18 Patient arrived in ED. mr 14:18 Cameron Zavala DO is Private Physician. mr 14:26 Triage completed. ll1 14:26 Arm band placed on. ll1 16:48 Swathi Newman, TICO is Primary Nurse. ph 16:51 Daniel Shepherd NP is PHCP. pm1 16:51 Francisco Stokes MD is Attending Physician. pm1 17:50 Initial lab(s) drawn, by me, sent to lab. Inserted saline lock: 22 gauge in right ph antecubital area, using aseptic technique. Blood collected. 18:11 Patient has correct armband on for positive identification. Bed in low position. Call ph light in reach. Side rails up X2. Pulse ox on. NIBP on. Door closed. Noise minimized. Warm blanket given. 18:40 Straight cath inserted, using sterile technique, 16 Fr. Specimen obtained. Returned ph nya urine. Patient tolerated well. 18:50 Urine Microscopic Only Sent. dh3 19:11 CT Abd/Pelvis - IV Contrast Only In Process Unspecified. EDMS 19:52 No provider procedures requiring assistance completed. ea 19:59 IV discontinued, intact, bleeding controlled, No redness/swelling at site. Pressure ea dressing applied. Administered Medications: No medications were administered Outcome: 19:49 Discharge ordered by MD. pm1 19:58 Discharged to home ea 19:58 Condition: stable 19:58 Discharge instructions given to patient, Instructed on discharge instructions, follow up and referral plans. medication usage, Demonstrated understanding of instructions, follow-up care, medications, Prescriptions given X 1. 19:59 Patient left the ED. ea Signatures: Dispatcher [employer] [facility] Leyla Saunders mr NewmanSwathi, RN RN Daniel Kim, DOUGLAS PNEUMATIC TUBE OPERATOR pm1 Viviana Viera 3 Marily Acevedo RN RN ea Lewis, Lynsay RN RN ll1
[2020-06-04 01:50] VITALS: TEMP 98.1
[2020-06-04 01:55] VITALS: BP 159/70; O2SAT 98
== END 2020-06-03 19:59 | disposition home or self-care (01) ==
LOC: ER 14:13
DX: R10.11 Right upper quadrant pain (principal); I10 Essential (primary) hypertension; F17.210 Nicotine dependence, cigarettes, uncomplicated
CPT/HCPCS: 85025; 80048; 36415; 80076; 83690; 74177; 51702; 99284; Q9967; 81003; 81015

== ENCOUNTER 2020-07-01 16:35 | Emergency (ER) | payer OTHER ==
--- OUTSIDE RECORDS SUMMARY | 2020-07-01 16:43 | XMS REPORT | Clinical Summary ---
:1940 Author Organization [facility] Address [address] [place] [address] Care Team Providers Name Role Phone Unavailable [...] PNEUMOCOCCAL 65+ YRS (1 of 1 - [id number] PCV13) 2007 MEDICARE ANNUAL WELLNESS (YEAR 2 or FIRST YEAR if no 07/20/2019 IPPE) INFLUENZA VACCINE (#1) 2020 Results Not on fileafter 07/01/2019 Insurance Payer Benefit Plan / Subscriber ID Effective Phone Address T ype Group Dates HUMANA - HUMANA [id number] 2018-Surya Edward Contracted MEDICARE MGD MEDICARE ADV nt CARE Advance Directives For more information, please contact: [phone] Code Status Date Activated Date Inactivated Comments Full Code 02/16/2019 3:49 PM 02/21/2019 12:47 PM This code status was determined by: Patient
--- OUTSIDE RECORDS SUMMARY | 2020-07-01 16:44 | XMS REPORT | Continuity of Care Document ---
:1940 Author Organization [facility] t Address [address] [place] [address] Care Team Providers Name Role Phone CATALINA POSADA Attending Clinician Unavailable CATALINA POSADA Admitting Clinician Unavailable Problems Condition Condition Condition Status Onset Resolution Last Treating Co mments Source Name Details Category Date Date Treatment Clinician Date Gall Gall Disease Active [facility] Allergies, Adverse Reactions, Alerts This patient has no known allergies or adverse reactions. Social History Social Habit Start Date Stop Date Quantity Comments Source Sex Assigned At [facility] Medications Ordered Filled Start Stop Current Ordering Indication Dosage Frequency Signature Comments Components Source Medication Medication Date Date Medication? Clinician (SIG) Name Name ProAir HFA ProAir HFA Yes Cameron [address] [facility] 4-06 [facility]ala needed [facility] clopidogrel 2018- Yes 75mg QD Take [address] [facility] (PLAVIX) 75 7-22 by mouth [facility] - mg tablet 00:00: daily. Medica l 00 [place] ALPRAZolam 2018-0 Yes 1mg [id number] Take [address] [facility] (XANAX) 1 7-17 [id number] by mouth 3 [facility] - MG tablet 00:00: 3D (three) Medic al 00 times Center daily. traZODone 2018-0 Yes 100mg QD Take [address] [facility] (DESYREL) 7-15 mg by [facility] - 100 MG 00:00: mouth Medical tablet 00 nightly. [place] FLUoxetine Yes 80mg QD Take [address] (PROZAC) 40 7-15 by mouth [facility] - MG capsule 00:00: every Medica l 00 morning. [place] metoprolol Yes 25mg Take [address] (LOPRESSOR) 7-13 by mouth 2 Monique kes - 25 MG 00:00: (two) Medical tablet 00 times Center daily with breakfast and dinner. lisinopril Yes 20mg QD Take [address] (PRINIVIL,Z 7-12 by mouth [facility] - ESTRIL) 20 00:00: daily. Medic al MG tablet 00 [place] amLODIPine Yes 10mg QD Take [address] (NORVASC) 7-09 by mouth [facility] - 10 MG 00:00: daily. Medical tablet 00 [place] omeprazole Yes 20mg QD Take [address] (PRILOSEC) 6-12 by mouth [facility] - 20 MG 00:00: daily. Medical capsule 00 [place] Metoprolol Metoprolol Yes Cameron [address] [facility] Tartrate Tartrate Zavala with food L [facility] ent [facility] Lisinopril Lisinopril Yes Cameron TAKE [address] [facility] Zavala TABLET BY [facility] DAY [facility] ent [facility] Simvastatin Simvastatin Yes Cameron [address] [facility] Zavala in [facility] Omeprazole Omeprazole Yes Cameron [address] [facility] Zavala [facility] ent [facility] Fluoxetine Fluoxetine Yes Cameron [address] [facility] HCl HCl Zavala [facility] ent [facility] Clopidogrel Clopidogrel Yes Cameron [address] [facility] Bisulfate Bisulfate Zavala [facility] Alprazolam Alprazolam Yes Cameron [address] [facility]ala [facility] Trazodone Trazodone Yes Cameron [address] [facility] HCl HCl Zavala at bedtime [facility] ent [facility] Amlodipine Amlodipine Yes Cameron [address] [facility] Besylate Besylate [facility]avala [facility] Amlodipine Amlodipine Yes Cameron TAKE [address] [facility] Besylate Besylate Zavala TABLET BY L [facility] - MOU[facility] EVERY DAY [facility] ent Clinics Clopidogrel Clopidogrel Yes Cameron TAKE [address] [facility] Bisulfate Bisulfate Zavala TABLET BY [facility]TH [facility] Immunizations Ordered Filled Immunization Date Status Comments Kyle e Immunization Name Name Sher Olivarez 2019-04-[address] [facility]00 [facility] Procedures This patient has no known procedures. [...] 00:00:00 (1 of 1 - Medical Center [id number] PCV13) [code = PNEUMOCOCCAL 65+ YRS (1 of 1 - [id number] PCV13)] Encounters Start End Encounter Admission Attending Care Care Encounter Source Date/Time Date/Time Type Type Clinicians Facility Department ID 2020-06-17 2020-06-17 Outpatient [facility] [id number] [facility] 2020-06-03 2020-06-03 Outpatient [facility]LMLC [facility] [id number] [facility] 2020-06-03 2020-06-03 Outpatient [facility]LMLC [facility] [id number] [facility] 2020-04-02 2020-04-02 [facility] [id number] [facility] 13:18:00 13:18:[address] [facility] Medicine Medicine Outpati ent Clinics 2020-04-01 2020-04-01 [facility] [id number] [facility] 14:30:00 14:30:[address] [facility] Medicine Medicine Outpati ent Clinics 2020-03-19 2020-03-19 [facility] [id number] [facility] 16:17:00 16:17:[address] [facility] - [address] [facility] Medicine l Medicine Outpati ent Clinics 2020-03-15 2020-03-15 [facility] [id number] [facility] 14:18:00 14:18:[address] [facility] - [facility] Medicine l Medicine Outpati ent Clinics 2020-03-15 2020-03-15 [facility] [id number] 11:43:00 11:43:[address] [facility] - [facility] Medicine l Medicine Outpati ent Clinics 2020-01-25 2020-01-25 [facility] [id number] 08[facility]11:00 08:11:00 [place] [employer] - Drive [facility] Medicine l Medicine Outpati ent Clinics 2020-01-01 2020-01-01 [facility] [id number] [address] 08:15:00 08:15:00 [place] [employer] - Drive [facility] Medicine l Medicine Outpati ent Clinics 2019-12-29 2019-12-29 [facility] [id number] [address] 11:28:00 11:28:00 [facility] s - Road [facility] l Medicine Outpati ent Clinics 2019-10-27 2019-10-27 [facility] [id number] [facility] 14:46:00 14:46:00 [place] [employer] - Drive [facility] l Medicine Outpati ent Clinics 2019-10-25 2019-10-25 [facility] [id number] [address] 11:43:00 11:43:00 [place] [employer] - Drive [facility] Medicine l Medicine Outpati ent Clinics 2019-10-23 2019-10-23 [facility] [id number] 11:45:00 11:45:00 [place] [employer] - Drive [facility] Medicine l Medicine Outpati ent Clinics 2019-10-23 2019-10-23 [facility] [id number] [address] 08:55:00 08:55:00 [place] [employer] - Drive [facility] l Medicine Outpati ent Clinics 2019-08-07 2019-08-07 [facility] [id number] 15:30:00 15:30:00 [place] [employer] [facility] s - [employer] [facility] Medicine Outpati ent Clinics 2019-07-17 2019-07-17 [facility] [id number] 10:55:00 10:55:00 [place] [employer] [facility] s - [employer] [facility] Medicine Outpati ent Clinics 2019-07-11 2019-07-11 [facility] [id number] 11:05:00 11:05:00 [place] [employer] [facility] s - [employer] [facility] Medicine Outpati ent Clinics 2019-04-06 2019-04-06 [facility] [id number] 14:30:00 14:30:00 [place] [employer] [facility] s - [employer] [facility] Medicine Outpati ent Clinics 2019-03-16 2019-03-16 [facility] [id number] 12:09:00 12:09:00 [place] [employer] [facility] s - [employer] [facility] Medicine Outpati ent Clinics 2019-03-13 2019-03-13 [facility] [id number] 09:55:00 09:55:00 [place] [employer] [facility] s [employer] [facility] Medicine Outpati ent Clinics 2019-03-06 2019-03-06 [facility] [id number] [facility] 14:45:00 14:45:00 t [employer] s - [employer] [facility] Medicine Outpati ent Clinics 2019-01-04 2019-01-04 [facility] [id number] [facility] 16:00:00 16:00:00 [place] [employer] [facility] s [employer] [facility] Medicine Outpati ent Clinics 2018-10-26 2018-10-26 [facility] [id number] 13:30:00 13:30:00 t [employer] [facility] Medicine Outpati ent Clinics Results Test Description Test Time Test Comments Results Result Sourc e Comments TISSUE EXAM 2019-02-23 Surgical Pathology 10:13:00 Report Case: [id number] Authorizing Provider: Marie Green MD Collected: 02/20/2019 1448 Ordering Location: [facility] Received: 02/21/2019 1406 SERVICES Pathologist: Mignon Winter MD Specimen: Gallbladder GALLBLADDER, CHOLECYSTECTOMY: - CHRONIC CHOLECYSTITIS AND CHOLELITHIASIS - ONE BENIGN LYMPH NODE Signing Pathologist Direct Phone Line: [phone] ly signed by Mignon Winter MD on 02/23/2019 at 10:13 [id number] [id number] GALLBLADDERReceived in formalin labeled "gallbladder" consists [...] sectioned, and no lesions are grossly identified. Hospitalist Medical Director sections along with the cystic duct margin and one lymph node are submitted in cassettes A1-A2. TH/ewPerformed. BLOOD CULTURE 2019-02-21 20:01:00 Test Item Value Reference Range Interpretation Comme nts CULTURE (BEAKER) (test code = 1095) No growth in 5 days HEPATIC FUNCTION [id number] 07:14:00 Test Item Value Reference Range Interpretation [...] 94 U/L 6-55 H 347) BASIC METABOLIC [id number] 07:14:00 Test Item Value Reference Range Interpretation [...] PATIEN TS. CBC W/PLT COUNT & AUTO [id number] 06:29:00 Test Item Value Reference Range Interpretation [...] (BEAKER) (test code = 2801) COMPREHENSIVE METABOLIC [id number] 07:05:00 Test Item Value Reference Range Interpretation [...] APPLICABLE FOR DIALYSIS PATIEN TS. COMPREHENSIVE METABOLIC [id number] 07:59:00 Test Item Value Reference Range Interpretation [...] PATIEN TS. CBC W/PLT COUNT & AUTO [id number] 05:50:00 Test Item Value Reference Range Interpretation [...] (BEAKER) (test code = 2801) COMPREHENSIVE METABOLIC [id number] 14:13:00 Test Item Value Reference Range Interpretation [...] Specimen slightly ictericCBC W/PLT COUNT & AUTO [id number] 06:30:00 Test Item Value Reference Range Interpretation [...] code = 2801) URINALYSIS W/ REFLEX URINE [id number] 07:36:00 Test Item Value Reference Range Interpretation [...] SOURCE(BEAKER) (test code = 2795) COMPREHENSIVE METABOLIC [id number] 06:58:00 Test Item Value Reference Range Interpretation [...] Specimen slightly ictericCBC W/PLT COUNT & AUTO [id number] 06:07:00 Test Item Value Reference Range Interpretation [...] PERCENT (BEAKER) (test code = 2801) CT, [id number] 23:53:00FINAL REPORT INDICATION:Abdominal pain. COMPARISON: None. TECHNIQUE: [...] MDReport Verified Date/Time: 02/16/2019 23:53:17 Reading Location: [facility] [id number] Consult Reading Room Electronically signed by: CHRISTIANO HARDY M.D. on02/16/2019 11:53 [id number] 19:10:00 Test Item Value Reference Range Interpretation Comments LIPASE (BEAKER) (test code = 749) 90 U/L 8-78 H Specimen moderately ictericB-TYPE NATRIURETIC FACTOR (BNP)2019-02-16 18:19:00 Test Item Value Reference Range Interpretation Comments B-TYPE NATRIURETIC PEPTIDE (BEAKER) 53 pg/mL 0-100 (test code = 700) COMPREHENSIVE METABOLIC [id number] 18:15:00 Test Item Value Reference Range Interpretation [...] Specimen slightly ictericCBC W/PLT COUNT & AUTO [id number] 17:58:00 Test Item Value Reference Range Interpretation [...]
--- OUTSIDE RECORDS SUMMARY | 2020-07-01 16:44 | XMS REPORT ---
:1940 Author Organization [facility] Address [address] [place], [address] [place] [address] Care Team Providers Name Role Phone Lucas Unavailable [phone] PROBLEMS Type Condition ICD9-CM [id number] Onset Condition SNOMED Code Notes Code Code Dates Status Problem Current moderate F32.1 Active 60253664 episode of major depressive disorder without prior episode Problem Insomnia, G47.00 Active 930472333 unspecified type Problem Controlled type 2 E11.9 Active 720189254 diabetes mellitus without complication, without long-term current use of insulin Problem HTN, goal below I10 Active 62162262 130/80 Problem Loss of balance R26.89 Active 953045247 Problem History of fall Z91.81 Active 568106268 Problem Bipolar affective F31.9 Active 08364343 disorder, remission status unspecified Problem GERD without K21.9 Active 236036635 esophagitis Problem Other chronic pain G89.29 Active 15247238 Problem History of CVA Z86.73 Active 803192723 (cerebrovascular accident) without residual deficits Problem 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 Active 95265102 of other specified parts of digestive tract Problem Tobacco use F17.200 Active 391374720 disorder Problem Anxiety F41.9 Active 73270946 Problem Mixed E78.2 Active 437961191 hyperlipidemia Problem Status post Z90.49 Active 919359610 laparoscopic cholecystectomy Problem Decreased hearing H91.93 Active 279556238 of both ears ALLERGIES No Known Allergies ENCOUNTERS from 1940 to 2020-06-11 Encounter Location Date Provider Diagnosis [facility] [address] [place], Cameron Lucas VARGAS [facility] [address] [facility] [address]is K21[address]9 ; [place] [address] Acquired absen ce of other specified parts of digestive tr act Z90.49 ; Upper abdominal pain, unspecified R10 .10 ; History of CVA (cerebrovascula r accident) witho ut residual defici ts Z86.73 and Pre- op evaluation Z01. 818 IMMUNIZATIONS Vaccine Route Administration Date Status FluAD IM Intramuscular Apr 06, 2019 Administered SOCIAL HISTORY Tobacco Use: Social History Observation Description Date Details (start date - stop date) Current Smoker Sex Assigned At : Social History Observation Description Sex Assigned At Unknown PHQ9 Question Answer Notes Little interest or pleasure in doing things More than half t he days Feeling down, depressed, or hopeless More than half the days Trouble falling or staying asleep or sleeping too much More than half the days Feeling tired or having little energy Several days Poor appetite or overeating More than half the days Feeling bad about yourself, or that you are a failure, More than half the days or have let yourself or your family down Trouble concentrating on things, such as reading the Not at all newspaper or watching television Moving or speaking so slowly that other people could Not at all have noticed; or the opposite, being so fidgety or restless that you have been moving around a lot more than usual Total Score 11 Interpretation Moderate Depression Thoughts that you would be better off or of Not at all hurting yourself in some way Alcohol Screen Question Answer Notes Did you have a drink containing alcohol in the past year? No Points 0 Interpretation Negative Tobacco Use/Smoking Question Answer Notes Are you a current smoker How many cigarettes a day do you smoke? 6-10 How often do you smoke cigarettes? every day REASON FOR REFERRAL No Information VITAL SIGNS No information MEDICATIONS Medication SIG (Take, Route, Notes Start Date End Date Status Frequency, Duration) Tramadol HCl 50 MG 1 tablet as needed May, Active Orally Once a day PRN SEVERE PAIN Fluoxetine HCl 40 MG 1 capsule Orally Once a Active day for 90 days Lisinopril 20 MG 1 tablet Orally Once a Active day for 90 days Clopidogrel Bisulfate 75 TAKE 1 TABLET BY MOUTH Active MG EVERY DAY for 90 Amlodipine Besylate 10 MG 1 tablet Orally Once a Active day for 90 days Simvastatin 10 MG TAKE 1 TABLET BY MOUTH Active EVERY DAY IN THE EVENING for 90 Trazodone HCl 100 MG 2 tablet at bedtime Active Orally Once a day Omeprazole 20 MG 1 capsule Orally Once a Active day for 90 days Metoprolol Tartrate 25 MG 1 tablet with food Active Orally Twice a day for 90 days ProAir HFA 108 (90 Base) 2 puffs as needed Oct, Active MCG/ACT Inhalation every 6 hrs PRN COugh, Wheezing or shortness of breath for 30 days Simvastatin 10 MG 1 tablet in the evening Active Orally Once a day for 90 days Alprazolam 1 MG 1 tablet Orally Three Active times a day Amlodipine Besylate 10 MG TAKE 1 TABLET BY MOUTH Active EVERY DAY for 90 Clopidogrel Bisulfate 75 1 tablet Orally Once a Active MG day for 90 days Lisinopril 20 MG TAKE 1 TABLET BY MOUTH Active EVERY DAY for 90 PROCEDURES No Information RESULTS No Results REASON FOR VISIT Possible pancreatitis MEDICAL (GENERAL) HISTORY Type Description Date Medical History Controlled type 2 diabetes mellitus with out complication, without long-term current use of insulin Medical History HTN, goal below 130/80 Medical History Current moderate episode of major depres sive disorder without prior episode Medical History Anxiety Medical History Bipolar affective disorder, remission st atus unspecified Medical History Insomnia, unspecified type Medical History GERD without esophagitis Medical History History of CVA (cerebrovascular accident ) without residual deficits Medical History History of fall Medical History Loss of balance Medical History Tobacco use disorder Surgical History Lesion on leg-infection 2016 Hospitalization History Gallstone Pancreatitis, ERCP, Lap Ch ole- [facility] Goals Section No Information Health Concerns No Information MEDICAL EQUIPMENT No Information MENTAL STATUS No Information FUNCTIONAL STATUS No Information ASSESSMENTS Encounter Date Diagnosis Assessment Notes Treatment Notes Treatm ent Clinical Notes May, GERD without esophagitis (ICD-10 - K21.9) May, Acquired absence of other specified parts of digestive tract (ICD-10 - Z90.49) May, Upper abdominal pain, unspecified (ICD-10 - R10.10) May, History of CVA (cerebrovascular accident) without residual deficits (ICD-10 - Z86.73) May, Pre-op evaluation (ICD-10 - Z01.818) PLAN OF TREATMENT Medication Medication Name Sig Start Date Stop Date Lisinopril 20 MG 1 tablet Orally Once a day for 90 days Amlodipine Besylate 10 MG 1 tablet Orally Once a day for 90 days Clopidogrel Bisulfate 75 MG 1 tablet Orally Once a day for 90 days Metoprolol Tartrate 25 MG 1 tablet with food Orally Twice a day for 90 days Tramadol HCl 50 MG 1 tablet as needed Orally Once a 24 May, PRN SEVERE PAIN Alprazolam 1 MG 1 tablet Orally Three times a day Fluoxetine HCl 40 MG 1 capsule Orally Once a day for 90 days Simvastatin 10 MG 1 tablet in the evening Orally Once a day for 90 days Trazodone HCl 100 MG 2 tablet at bedtime Orally Once a day Omeprazole 20 MG 1 capsule Orally Once a day for 90 days Next Appt Details Provider Name:Cameron Zavala, 2020-06-24 0 2:30:00 PM, [address], [address], [place], [address], Provider Name:Cameron Zavala 2020-07-01 0 2:30:00 PM, [address], [address], [place], [address], Insurance Providers Payer Name Payer Address Payer Insured Patient Coverage Cover age End Phone Name Relationship to Start Date Valdo e Insured [employer] [address] [address] [phone] Juanis Pyle [address] [place] [place] [phone]
--- OUTSIDE RECORDS SUMMARY | 2020-07-01 16:44 | XMS REPORT ---
:1940 Author Organization [facility] Address [address] [place], [address] [place] [address] Care Team Providers Name Role Phone Lucas Unavailable [phone] PROBLEMS Type Condition ICD9-CM [id number] Onset Condition SNOMED Code Notes Code Code Dates Status Problem Current moderate F32.1 Active 16147590 episode of major depressive disorder without prior episode Problem Insomnia, G47.00 Active 642312213 unspecified type Problem Controlled type 2 E11.9 Active 422795945 diabetes mellitus without complication, without long-term current use of insulin Problem HTN, goal below I10 Active 65512011 130/80 Problem Loss of balance R26.89 Active 139032395 Problem History of fall Z91.81 Active 545332653 Problem Bipolar affective F31.9 Active 74359533 disorder, remission status unspecified Problem GERD without K21.9 Active 284372332 esophagitis Problem Other chronic pain G89.29 Active 96844444 Problem History of CVA Z86.73 Active 950536786 (cerebrovascular accident) without residual deficits Problem 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 Active 65124470 of other specified parts of digestive tract Problem Tobacco use F17.200 Active 991612832 disorder Problem Anxiety F41.9 Active 03995871 Problem Mixed E78.2 Active 247115730 hyperlipidemia Problem Status post Z90.49 Active 192422278 laparoscopic cholecystectomy Problem Decreased hearing H91.93 Active 157469284 of both ears ALLERGIES No Known Allergies ENCOUNTERS from 1940 to 2020-06-03 Encounter Location Date Provider Diagnosis [facility] [address], [address] [place] [address] IMMUNIZATIONS Vaccine Route Administration Date Status FluAD [...] Start Date End Date Status Frequency, Duration) Fluoxetine HCl 40 MG 1 capsule Orally [...] Information RESULTS No Results REASON FOR VISIT ERROR MEDICAL (GENERAL) HISTORY Type Description Date Medical [...] ERCP, Lap Ch ole- [facility] Goals Section No Information Health Concerns No Information MEDICAL EQUIPMENT No Information MENTAL STATUS No Information FUNCTIONAL STATUS No Information ASSESSMENTS No Information PLAN OF TREATMENT Medication Medication Name Sig [...] Orally Twice a day for 90 days Alprazolam 1 [...] 2:30:00 PM, [address], [address], [place], [address], Provider Name:Cameron Lucas 2020-07-01 0 2:30:00 PM, [address], [address], [place], [address], Insurance Providers Payer Name Payer Address Payer Insured Patient Coverage Cover age End Phone Name Relationship to Start Date Valdo e Insured [employer] [address] [address] [phone] Juanis Pyle self [address] [place] [address] [place] [phone]
--- OUTSIDE RECORDS SUMMARY | 2020-07-01 16:45 | XMS REPORT ---
:1940 Author Organization [facility] Address [address], [address] [place] [address] Care Team Providers Name Role Phone Lucas Unavailable [phone] PROBLEMS Type Condition ICD9-CM LHQ10-RC Onset Condition SNOMED Code Notes Code Code Dates Status Problem Current moderate F32.1 Active 42709208 episode of major depressive disorder without prior episode Problem Insomnia, G47.00 Active 696197784 unspecified type Problem Controlled type 2 E11.9 Active 133618903 diabetes mellitus without complication, without long-term current use of insulin Problem HTN, goal below I10 Active 29176869 130/80 Problem Loss of balance R26.89 Active 168251542 Problem History of fall Z91.81 Active 524829472 Problem Bipolar affective F31.9 Active 05914132 disorder, remission status unspecified Problem GERD without K21.9 Active 692131593 esophagitis Problem Other chronic pain G89.29 Active 51593358 Problem History of CVA Z86.73 Active 669245570 (cerebrovascular accident) without residual deficits Problem 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 Active 67162839 of other specified parts of digestive tract Problem Tobacco use F17.200 Active 465732779 disorder Problem Anxiety F41.9 Active 89936434 Problem Mixed E78.2 Active 809751220 hyperlipidemia Problem Status post Z90.49 Active 249017973 laparoscopic cholecystectomy Problem Decreased hearing H91.93 Active 600945851 of both ears ALLERGIES No Known Allergies ENCOUNTERS from 1940 to 2020-06-18 Encounter Location Date [facility] [address], [place] [address] IMMUNIZATIONS Vaccine Route Administration Date Status FluAD [...] Information RESULTS No Results REASON FOR VISIT hallucinations, neuro appt MEDICAL (GENERAL) HISTORY Type Description Date Medical [...] use disorder Surgical History Lesion on leg-infection 2017 Hospitalization History Gallstone Pancreatitis, ERCP, Lap Ch [facility] 02/2019 [facility] Goals Section No Information Health [...] 90 days Next Appt Details Provider Name:Cameron Lucas, 2020-06-24 0 2:30:00 PM, [address], [address], [place], [address], Provider Name:Cameron Lucas 2020-07-01 0 2:30:00 PM, [address], [address], [place], [address], Insurance Providers Payer Name Payer Address Payer Insured Patient Coverage Cover age End Phone Name Relationship to Start Date Valdo e Insured [employer] [address] [address] [phone] Juanis Pyle self [address] [place] [place] [phone]
[2020-07-01 19:14] LABS: Absolute Lymphocytes (CBC) 3.1 K/uL (0.7-4.9); Basophils % 0.6 % (0-1.3); Hematocrit 41.5 % (36.0-45.0); Lymphocytes % 31.8 % (15.3-44.8); MPV 8.1 fL (7.6-11.3)
[2020-07-01] MEDS ORDERED: ONDANSETRON 4 MG/2 ML VIAL ONE (19:14)
[2020-07-01] MEDS ORDERED: NA CHLORIDE 0.9% 500 ML ONE (19:14)
[2020-07-01] MEDS ORDERED: MORPHINE 4 MG/ML SYR ONE (19:14)
[2020-07-01 19:26] LABS: Protime INR 1.04
[2020-07-01 19:31] LABS: ALT/SGPT 23 U/L (12-78); AST/SGOT 33 U/L (15-37); Albumin 3.4 g/dL (3.4-5.0); Alkaline Phosphatase 81 U/L (45-117); BUN Blood Urea Nitrogen 12 mg/dL (7-18); Bicarbonate 33 mmol/L (21-32); Bilirubin Direct 0.1 mg/dL (0-0.2); Bilirubin Total 0.3 mg/dL (0.2-1.0); Glucose Level 95 mg/dL (74-106); Lipase 295 U/L (73-393); Potassium 3.3 mmol/L (3.5-5.1); Protein, Total 7.7 g/dL (6.4-8.2); Sodium Level 143 mmol/L (136-145)
--- NOTE | 2020-07-01 19:50 | RAD REPORT ---
EXAM DESCRIPTION: CT - Chest Abdomen Pelvis W Cont - 07/01/2020 7:34 pm CLINICAL HISTORY: Chest and abdomen pain. RIB PAIN - RIGHT COMPARISON: Abdomen Pelvis W Contrast dated 06/03/2020 TECHNIQUE: Approximately 100 mL nonionic IV contrast was administered to the patient. All CT scans are performed using dose optimization technique as appropriate and may include automated exposure control or mA/KV adjustment according to patient size. FINDINGS: Mild linear subsegmental atelectasis in the right lung base.No pleural or pericardial effu lucina.No intrathoracic adenopathy. The liver demonstrates no focal mass or biliary dilatation. Cholecystectomy. The spleen, pancreas, ad renal glands and kidneys are within normal limits. 6 cm cyst is present in the anterior left kidney. No bowel obstruction, free air, free fluid or abscess. Normal appendix. Again noted is a short segmen t area of the sigmoid colon that demonstrates mild wall thickening. There is an adjacent pericolonic lymph node also seen measuring 8 mm. This appears similar to the prior study. Mild sigmoid diverticul osis without diverticulitis. Lateral right seventh, eighth and ninth ribs demonstrate nondisplaced fractures. IMPRESSION: Nondisplaced right lateral rib fractures as detailed.No solid organ traumatic injury or pneumothorax. Short-segment area of sigmoid wall thickening with adjacent pericolonic lymph node. Colon malignancy remains a concern and followup colonoscopy would be recommended if not recently performed.
--- NOTE | 2020-07-01 20:04 | ER ---
Nurse's Notes [facility] Name: Juanis Pyle Age: 80 yrs Sex: Female : 1940 Arrival Date: 07/01/2020 Time: 16:36 Bed 14 Private MD: Diagnosis: Multiple fractures of ribs, right side;Fall on same level from slipping, tripping and stumbling Presentation: 07/01 17:01 Chief complaint: Patient states: lost balance on Wednesday, reports right sided rib em pain, called neurologist and told her to come to the ED to r/o internal bleeding, pt does take blood thinner clopidogrel. Coronavirus screen: Client denies travel out of the [place] in the last 14 days. Ebola Screen: Patient negative for fever greater than or equal to 101.5 degrees Fahrenheit, and additional compatible Ebola Virus Disease symptoms Patient denies exposure to infectious person. Patient denies travel to an Ebola-affected area in the 21 days before illness onset. No symptoms or risks identified at this time. Initial Sepsis Screen: Does the patient meet any 2 criteria? No. Patient's initial sepsis screen is negative. Does the patient have a suspected source of infection? No. Patient's initial sepsis screen is negative. Risk Assessment: Do you want to hurt yourself or someone else? Patient reports no desire to harm self or others. Onset of symptoms was June 28, 2020. 17:01 Method Of Arrival: Wheelchair em 17:01 Acuity: DAVID 3 em Historical: - Allergies: 17:05 No Known Allergies; em - PMHx: 20:25 Hypertension; CVA; Memory problems; ll2 - PSHx: 20:25 Cholecystectomy; ll2 - Immunization history:: Adult Immunizations up to date. - Social history:: Smoking status: Patient reports the use of cigarette tobacco products, smokes one-half pack cigarettes per day. Screenin:39 Abuse screen: Denies threats or abuse. Denies injuries from another. Nutritional zb screening: No deficits noted. Tuberculosis screening: No symptoms or risk factors identified. Fall Risk Fall in past 12 months (25 points). No secondary diagnosis (0 pts). IV access (20 points). Ambulatory Aid- Crutches/Cane/Walker (15 pts). Gait- Weak (10 pts.). Mental Status- Oriented to own ability (0 pts). Total Cuevas Fall Scale indicates High Risk Score (45 or more points). Fall prevention measures have been instituted. Side Rails Up X 2 Placed Close to Nursing Station Frequent Obs/Assessments Occuring Family Present and informed to notify staff if the need to leave the bedside As available patient and family educated on Fall Prevention Program and Strategies. Assessment: 18:32 General: Appears in no apparent distress. uncomfortable, Behavior is calm, cooperative, zb appropriate for age, Denies fever, feeling ill, fatigue. Pain: Complains of pain in right lateral anterior chest and right upper quadrant Pain currently is 10 out of 10 on a pain scale. Quality of pain is described as sharp, Pain began 2-3 days ago. Neuro: Level of Consciousness is awake, alert, obeys commands, Oriented to person, place, time, situation. Cardiovascular: Heart tones S1 S2 present Patient's skin is warm and dry. Respiratory: Airway is patent Respiratory effort is even, unlabored, Respiratory pattern is regular, Breath sounds are clear bilaterally. GI: Abdomen is non-distended, obese, Reports diarrhea. : No signs and/or symptoms were reported regarding the genitourinary system. EENT: No signs and/or symptoms were reported regarding the EENT system. Derm: Skin is healthy with good turgor, Skin is dry, Skin is pink, warm \T\ dry. normal, Bruising that is dark purple. Musculoskeletal: Circulation, motion, and sensation intact. Capillary refill < 3 seconds, in bilateral Swelling present in right lower rib area/ RUQ Tenderness present in RLQ and Right lower rib area Reports pain in anterior aspect of right lateral abdomen and right upper quadrant. 20:25 Reassessment: Patient and/or family updated on plan of care and expected duration. Pain ll2 level reassessed. Patient is alert, oriented x 3, equal unlabored respirations, skin warm/dry/pink. Vital Signs: 17:01 BP 138 / 65; Pulse 70; Resp 18; Temp 97.9(O); Pulse Ox 100% on R/A; Weight 77.11 kg; em Height 5 ft. 2 in. (157.48 cm); Pain 10/10; 17:01 Body Mass Index 31.09 (77.11 kg, 157.48 cm) em ED Course: 16:36 Patient arrived in ED. as 17:04 Triage completed. em 17:05 Arm band placed on. em 18:00 Patient has correct armband on for positive identification. Bed in low position. Call zb light in reach. Side rails up X 1. Adult w/ patient. Pulse ox on. NIBP on. Door closed. Noise minimized. Warm blanket given. 18:16 Inocencia Chapman RN is Primary Nurse. zb 18:21 Daniel Shepherd NP is PHCP. pm1 18:21 Zahcary Hanna MD is Attending Physician. pm1 18:39 No provider procedures requiring assistance completed. zb 19:34 CT Chest, Abdomen, Pelvis - W/Contrast In Process Unspecified. EDMS 20:25 IV discontinued, intact, bleeding controlled, No redness/swelling at site. Pressure ll2 dressing applied. Administered Medications: 19:00 Drug: morphine 4 mg Route: IVP; Site: right forearm; ll2 19:42 Follow up: Response: No adverse reaction; Pain is decreased; RASS: Alert and Calm (0) zb 19:30 Drug: NS 0.9% 500 ml Route: IV; Rate: bolus; Site: right antecubital; ll2 19:32 Drug: Zofran (Ondansetron) 4 mg Route: IVP; Site: right forearm; ll2 19:43 Follow up: Response: No adverse reaction zb Outcome: 20:03 Discharge ordered by . pm1 20:25 Discharged to home via wheelchair. ll2 20:25 Condition: stable 20:25 Discharge instructions given to patient, family, Instructed on discharge instructions, follow up and referral plans. medication usage, Demonstrated understanding of instructions, follow-up care, medications, Prescriptions given X 1. 20:26 Patient left the ED. ll2 Signatures: Dispatcher [employer] EDCT Jorge Coats RN RN em Paola Gutierrez as Daniel Shepherd NP ELECTRONIC [employer]ICOND[employer]CTOR PROCESSOR pm1 Priya Harmon RN RN ll2 Inocencia Chapman RN RN zb Corrections: (The following items were deleted from the chart) 20:25 17:05 PMHx: Hypertension; em ll2 20:25 17:05 PMHx: CVA; em ll2 20:25 17:05 PMHx: Memory problems; em ll2 20:25 17:05 PSHx: Cholecystectomy; em ll2
--- NOTE | 2020-07-01 20:04 | EDPHYS ---
Physician Documentation [facility] Name: Juanis Pyle Age: 80 yrs Sex: Female : 1940 Arrival Date: 07/01/2020 Time: 16:36 Bed 14 Private MD: ED Physician Zachary Hanna HPI: 07/01 18:33 This 80 yrs old Female presents to ER via Wheelchair with complaints of Fall pm1 Injury, Right Rib Pain. 18:33 Details of fall: The patient fell from an upright position, while walking, without her pm1 walker. Onset: The symptoms/episode began/occurred 2 day(s) ago. Associated injuries: The patient sustained right lateral anterior chest, pain. Severity of symptoms: in the emergency department the symptoms are unchanged. The patient has not experienced similar symptoms in the past. Patient was walking next to the [employer] without her walker and lost her balance and fell. Hit a small table with the right side of her ribs. No head injury, headache, neck pain, LOC. Historical: - Allergies: 17:05 No Known Allergies; em - PMHx: 20:25 Hypertension; CVA; Memory problems; ll2 - PSHx: 20:25 Cholecystectomy; ll2 - Immunization history:: Adult Immunizations up to date. - Social history:: Smoking status: Patient reports the use of cigarette tobacco products, smokes one-half pack cigarettes per day. ROS: 18:33 Constitutional: Negative for fever, chills, and weight loss, Neck: Negative for injury, pm1 pain, and swelling, Cardiovascular: Negative for chest pain, palpitations, and edema, Respiratory: Negative for shortness of breath, cough, wheezing, and pleuritic chest pain, Back: Negative for injury and pain, MS/Extremity: Negative for injury and deformity, Skin: Negative for injury, rash, and discoloration, Neuro: Negative for headache, weakness, numbness, tingling, and seizure. 18:33 Abdomen/GI: Positive for of the left upper quadrant, Mild pain present there from prior ER visit - possible colonic mass. Pending colonoscopy for further evaluation . Exam: 18:33 Constitutional: This is a well developed, well nourished patient who is awake, alert, pm1 and in no acute distress. Head/Face: Normocephalic, atraumatic. Neck: Trachea midline, no thyromegaly or masses palpated, and no cervical lymphadenopathy. Supple, full range of motion without nuchal rigidity, or vertebral point tenderness. No Meningismus. 18:33 Back: No spinal tenderness. No costovertebral tenderness. Full range of motion. Skin: Warm, dry with normal turgor. Normal color with no rashes, no lesions, and no evidence of cellulitis. MS/ Extremity: Pulses equal, no cyanosis. Neurovascular intact. Full, normal range of motion. 18:33 Chest/axilla: Inspection: normal, Palpation: crepitus, is not appreciated, tenderness, that totally reproduces the patient's complaints, focal point to right lateral anterior rib area. 18:33 Cardiovascular: Exam negative for acute changes, Rate: normal, Rhythm: regular, Pulses: no pulse deficits are appreciated. 18:33 Respiratory: Exam negative for acute changes, respiratory distress, shortness of breath. 18:33 Neuro: Exam negative for acute changes, Orientation: is normal, Mentation: is normal, Motor: is normal, moves all fours. Vital Signs: 17:01 BP 138 / 65; Pulse 70; Resp 18; Temp 97.9(O); Pulse Ox 100% on R/A; Weight 77.11 kg; em Height 5 ft. 2 in. (157.48 cm); Pain 10/10; 17:01 Body Mass Index 31.09 (77.11 kg, 157.48 cm) em MDM: 18:22 Patient medically screened. pm1 20:03 Data reviewed: vital signs. Data interpreted: Pulse oximetry: on room air is 100 %. pm1 Interpretation: normal. Counseling: I had a detailed discussion with the patient and/or guardian regarding: the historical points, exam findings, and any diagnostic results supporting the discharge/admit diagnosis, lab results, radiology results, the need for outpatient follow up, to return to the emergency department if symptoms worsen or persist or if there are any questions or concerns that arise at home. 07/01 18:33 Order name: Basic Metabolic Panel; Complete Time: 19:43 pm1 07/01 18:33 Order name: CBC with Diff; Complete Time: 19:31 pm1 07/01 18:33 Order name: CT Chest, Abdomen, Pelvis - W/Contrast; Complete Time: 19:53 pm1 07/01 18:33 Order name: Hepatic Function; Complete Time: 19:43 pm1 07/01 18:33 Order name: Lipase; Complete Time: 19:43 pm1 07/01 18:52 Order name: PT-INR; Complete Time: 19:43 pm1 07/01 18:33 Order name: IV Saline Lock; Complete Time: 19:37 pm1 07/01 18:33 Order name: Labs collected and sent; Complete Time: 19:37 pm1 07/01 20:03 Order name: INCENTIVE SPIROMETRY pm1 Administered Medications: 19:00 Drug: morphine 4 mg Route: IVP; Site: right forearm; ll2 19:42 Follow up: Response: No adverse reaction; Pain is decreased; RASS: Alert and Calm (0) zb 19:30 Drug: NS 0.9% 500 ml Route: IV; Rate: bolus; Site: right antecubital; ll2 19:32 Drug: Zofran (Ondansetron) 4 mg Route: IVP; Site: right forearm; ll2 19:43 Follow up: Response: No adverse reaction zb Disposition: 07/01/20 20:03 Discharged to Home. Impression: Multiple fractures of ribs, right side, Fall on same level from slipping, tripping and stumbling. - Condition is Stable. - Discharge Instructions: Rib Fracture, Incentive Spirometer. - Prescriptions for Tylenol- Codeine #3 300-30 mg Oral Tablet - take 2 tablets by ORAL route every 6 hours As needed; 20 tablet. - Medication Reconciliation Form, Thank You Letter, Antibiotic Education, Prescription Opioid Use form. - Follow up: Emergency Department; When: As needed; Reason: Worsening of condition. Follow up: Private Physician; When: 2 - 3 days; Reason: Recheck today's complaints, Continuance of care, Re-evaluation by your physician. - Problem is new. - Symptoms have improved. Addendum: 07/20/2020 13:09 Co-signature as Attending Physician, Zachary Hanna MD Available for consultation at p s1 all times. Did not see patient unless otherwise noted. Signature is for administrative purposes and not an endorsement of care. . Signatures: Dispatcher [employer] EDJorge Loera, RN RN em Daniel Shepherd, CLINIC SCHEDULER CLINIC SCHEDULER pm1 Hanna, Zachary, MD Priya Campo, RN RN ll2 Inocencia Chapman RN zb Corrections: (The following items were deleted from the chart) 07/01 20: 17:05 PMHx: Hypertension; em ll2 : 17:05 PMHx: CVA; em ll2 : 17:05 PMHx: Memory problems; em ll2 : 17:05 PSHx: Cholecystectomy; em ll2 20: 20:03 07/01/2020 20:03 Discharged to Home. Impression: Multiple fractures of ribs, ll2 right side; Fall on same level from slipping, tripping and stumbling. Condition is Stable. Forms are Medication Reconciliation Form, Thank You Letter, Antibiotic Education, Prescription Opioid Use. Follow up: Emergency Department; When: As needed; Reason: Worsening of condition. Follow up: Private Physician; When: 2 - 3 days; Reason: Recheck today's complaints, Continuance of care, Re-evaluation by your physician. Problem is new. Symptoms have improved. pm1
[2020-07-04 12:04] VITALS: BP 138/65; TEMP 97.9; O2SAT 100
== END 2020-07-01 20:26 | disposition home or self-care (01) ==
LOC: ER 16:35
DX: S22.41XA Multiple fractures of ribs, right side, initial encounter for closed fracture (principal); W18.39XA Other fall on same level, initial encounter; Y93.01 Activity, walking, marching and hiking; Y92.9 Unspecified place or not applicable; I10 Essential (primary) hypertension; F17.210 Nicotine dependence, cigarettes, uncomplicated
CPT/HCPCS: 85025; 80048; 36415; 85610; 82565; 80076; 83690; 71260; 74177; 96375; 96374; 99284; Q9967; J7040; J2405

== ENCOUNTER 2020-10-08 16:15 | Emergency (ER) | payer OTHER ==
--- OUTSIDE RECORDS SUMMARY | 2020-10-08 16:18 | XMS REPORT | Continuity of Care Document ---
:[address] [facility] t Address [address] [place] [address] Care Team Providers Name Role Phone CATALINA [...] Date Quantity Comments Source Sex Assigned At [facility] Medications Ordered Filled Start Stop [...] 00:00: daily. Medica l 00 Center ALPRAZolam 2018-0 Yes 1mg [id number] Take [address] [facility] (XANAX) 1 7-17 [id number] by mouth 3 [facility] - [facility] tablet 00:00: 3D (three) Medic al 00 times Center daily. FLUoxetine 2018-0 Yes 80mg QD Take [address] (PROZAC) 40 7-15 by mouth [facility] - MG capsule 00:00: every Medica l 00 morning. [facility] traZODone 2018-0 Yes 100mg QD Take [address] [facility] (DESYREL) 7-15 mg by [facility] - 100 MG 00:00: mouth Medical tablet 00 nightly. [facility] metoprolol 0 Yes 25mg Take [address] (LOPRESSOR) 7-13 by mouth 2 Monique kes - 25 MG 00:00: (two) Medical tablet 00 times Center daily with breakfast and dinner. lisinopril 0 Yes 20mg QD Take [address] (PRINIVIL,Z 7-12 by mouth [facility] - ESTRIL) 20 00:00: daily. Medic al MG tablet 00 [facility] amLODIPine Yes 10mg QD Take [address] (NORVASC) 7-09 by mouth [facility] - 10 MG 00:00: daily. Medical tablet 00 [facility] omeprazole Yes 20mg QD Take [address] (PRILOSEC) 6-12 by mouth [facility] - 20 MG 00:00: daily. Medical capsule 00 [facility] Metoprolol Metoprolol Yes Cameron [address] [facility] Tartrate Tartrate Zavala with food [facility] Lisinopril Lisinopril Yes Cameron TAKE [address] [facility] Zavala TABLET BY [facility] DAY [facility] Simvastatin Simvastatin Yes Cameron [address] [facility] Zavala in the [facility] evening [facility] Omeprazole Omeprazole Yes Cameron [address] [facility] Zavala [facility] Fluoxetine Fluoxetine Yes Cameron [address] [facility] HCl HCl [facility] Clopidogrel Clopidogrel Yes Cameron [address] [facility] Bisulfate Bisulfate [facility] Alprazolam Alprazolam Yes Cameron [address] [facility] Zavala [facility] Trazodone Trazodone Yes Cameron [address] [facility] HCl HCl Zavala at [facility] Amlodipine Amlodipine Yes Cameron [address] [facility] Besylate Besylate Zavala [facility] Amlodipine Amlodipine Yes Cameron TAKE [address] [facility] Besylate Besylate Zavala TABLET BY L [facility] - [facility] EVERY DAY [facility] ent Clinics Clopidogrel Clopidogrel Yes Cameron TAKE [address] [facility] Bisulfate Bisulfate Zavala TABLET BY [facility] EVERY DAY [facility] Immunizations Ordered Filled Immunization Date Status Comments [facility] e Immunization Name Name Sher Olivarez 2019-04-[address] [facility] 00[facility]00 [facility] Procedures This patient has no known [...] 00:00:00 (1 of 1 - Medical Center [id number]) [code = PNEUMOCOCCAL 65+ YRS (1 of 1 - [id number] PCV13)] Encounters Start End Encounter Admission Attending Care Care Encounter Source Date/Time Date/Time Type Type Clinicians Facility Department ID 2020-10-01 2020-10-[address] [facility] [id number] [facility] 2020-07-01 2020-07-[address] [facility] [id number] [facility] 2020-06-17 2020-06-[address] [facility] [id number] [facility] 2020-06-03 2020-06-[address] [facility] [id number] [facility] 2020-06-03 2020-06-[address] [facility] [id number] [facility] 2020-04-02 2020-04-02 [facility] [id number] [facility] 13[facility]18:00 13:18:00 [place] [facility] Medicine l Medicine Outpati ent Clinics 2020-04-01 2020-04-01 [facility] [id number] 14:30:00 14:30:00 [place] [address] [facility] Medicine l Medicine Outpati ent Clinics 2020-03-19 2020-03-19 [facility] [id number] [facility] 16:17:00 16:17:00 [place] - [facility] Medicine l Medicine Outpati ent Clinics 2020-03-15 2020-03-15 [facility] [id number] [facility] 14:18:00 14:18:00 t [employer] - Drive [facility] l Medicine Outpati ent Clinics 2020-03-15 2020-03-15 [facility] [id number] [address] 11:43:00 11:43:00 [place] - [address] [facility] Medicine l Medicine Outpati ent Clinics 2020-01-25 2020-01-25 [facility] [id number] [address] 08:11:00 08:11:00 t [employer] [facility] - [facility] Medicine l Medicine Outpati ent Clinics 2020-01-01 2020-01-01 [facility] [id number] 08:15:00 08:15:00 t [employer] [facility] - [facility] Medicine l Medicine Outpati ent Clinics 2019-12-29 2019-12-29 [facility] [id number] [address] 11:28:00 11:28:00 [facility] [address] [employer] s - Road [facility] Medicine l Medicine Outpati ent Clinics 2019-10-27 2019-10-27 [facility] [id number] [address] 14:46:00 14:46:00 [place] - [address] [facility] Medicine l Medicine Outpati ent Clinics 2019-10-25 2019-10-25 [facility] [id number] 11:43:00 11:43:00 [place] [employer] - Drive [facility] Medicine l Medicine Outpati ent Clinics 2019-10-23 2019-10-23 [facility] [id number] [address] 11:45:00 11:45:00 [place] [employer] [place] [facility] - Drive [facility] Medicine l Medicine Outpati ent Clinics 2019-10-23 2019-10-23 [facility] [id number] 08:55:00 08:55:00 [place] [employer] s - Drive [facility] Medicine l Medicine Outpati ent Clinics 2019-08-07 2019-08-07 [facility] [id number] [address] 15:30:00 15:30:00 [place] [employer] s - Drive [facility] Medicine l Medicine Outpati ent Clinics 2019-07-17 2019-07-17 [facility] [id number] 10:55:00 10:55:00 [place] [employer] s - Drive [facility] Medicine Medicine Outpati ent Clinics 2019-07-11 2019-07-11 [facility] [id number] 11:05:00 11:05:00 [place] [employer] [place] - Drive [facility] Medicine l Medicine Outpati ent Clinics 2019-04-06 2019-04-06 [facility] [id number] [address] 14:30:00 14:30:00 [place] [employer] - Drive [facility] Medicine l Medicine Outpati ent Clinics 2019-03-16 2019-03-16 [facility] [id number] [facility] 12:09:00 12:09:00 [place] [employer] [place] - Drive [facility] Medicine l Medicine Outpati ent Clinics 2019-03-13 2019-03-13 [facility] [id number] 09:55:00 09:55:00 [place] [employer] s - Drive [facility] Medicine l Medicine Outpati ent Clinics 2019-03-06 2019-03-06 [facility] [id number] [address] 14:45:00 14:45:00 [place] [employer] s - Drive [facility] l Medicine Outpati ent Clinics 2019-01-04 2019-01-04 [facility] [id number] 16:00:00 16:00:00 [facility] ent [facility] 2018-10-26 2018-10-26 [facility] [id number] 13:30:00 13:30:00 [facility] Results Test Description Test Time Test Comments Results Result Sourc e Comments TISSUE EXAM 2019-02-23 Surgical Pathology 10:13:00 Report Case: [id number] Authorizing Provider: Marie Green MD Collected: 02/20/2019 1448 Ordering Location: [facility] Received: 02/21/2019 1406 SERVICES Pathologist: Mignon Winter MD Specimen: Gallbladder GALLBLADDER, CHOLECYSTECTOMY: - CHRONIC CHOLECYSTITIS AND CHOLELITHIASIS - ONE BENIGN LYMPH NODE Signing Pathologist Direct Phone Line: [phone] ly signed by Mignon Winter MD on 02/23/2019 at 10:13 [id number] pancreatitis GALLBLADDERReceived in formalin labeled "gallbladder" consists [...] sectioned, and no lesions are grossly identified. Dispensing Audiologist sections along with the cystic duct margin and one lymph node are submitted in cassettes A1-A2. TH/ewPerformed. BLOOD CULTURE 2019-02-21 20:01:00 Test Item Value Reference Range Interpretation Comme nts CULTURE (BEAKER) (test code = 1095) No growth in 5 days HEPATIC FUNCTION [id number] 07:14:00 Test Item Value Reference Range Interpretation [...] 94 U/L 6-55 H 347) BASIC METABOLIC [id number] 07:14:00 Test Item Value Reference Range Interpretation [...] PATIEN TS. CBC W/PLT COUNT & AUTO [id number] 06:29:00 Test Item Value Reference Range Interpretation [...] (BEAKER) (test code = 2801) COMPREHENSIVE METABOLIC [id number] 07:05:00 Test Item Value Reference Range Interpretation [...] APPLICABLE FOR DIALYSIS PATIEN TS. COMPREHENSIVE METABOLIC [id number] 07:59:00 Test Item Value Reference Range Interpretation [...] PATIEN TS. CBC W/PLT COUNT & AUTO [id number] 05:50:00 Test Item Value Reference Range Interpretation [...] (BEAKER) (test code = 2801) COMPREHENSIVE METABOLIC [id number] 14:13:00 Test Item Value Reference Range Interpretation [...] Specimen slightly ictericCBC W/PLT COUNT & AUTO [id number] 06:30:00 Test Item Value Reference Range Interpretation [...] code = 2801) URINALYSIS W/ REFLEX URINE [id number] 07:36:00 Test Item Value Reference Range Interpretation [...] SOURCE(BEAKER) (test code = 2795) COMPREHENSIVE METABOLIC [id number] 06:58:00 Test Item Value Reference Range Interpretation [...] Specimen slightly ictericCBC W/PLT COUNT & AUTO [id number] 06:07:00 Test Item Value Reference Range Interpretation [...] PERCENT (BEAKER) (test code = 2801) CT, [id number] 23:53:00FINAL REPORT INDICATION:Abdominal pain. COMPARISON: None. TECHNIQUE: [...] MDReport Verified Date/Time: 02/16/2019 23:53:17 Reading Location: [facility] B1 C013W Consult Reading Room Electronically signed by: CHRISTIANO HARDY M.D. on02/16/2019 11:53 [id number] 19:10:00 Test Item Value Reference Range Interpretation Comments LIPASE (BEAKER) (test code = 749) 90 U/L 8-78 H Specimen moderately ictericB-TYPE NATRIURETIC FACTOR (BNP)2019-02-16 18:19:00 Test Item Value Reference Range Interpretation Comments B-TYPE NATRIURETIC PEPTIDE (BEAKER) 53 pg/mL 0-100 (test code = 700) COMPREHENSIVE METABOLIC [id number] 18:15:00 Test Item Value Reference Range Interpretation [...] Specimen slightly ictericCBC W/PLT COUNT & AUTO [id number] 17:58:00 Test Item Value Reference Range Interpretation [...] % 0-1 PERCENT (BEAKER) (test code = 3543)
[2020-10-08] MEDS ORDERED: LIDOCAINE 4% PATCH ONE (19:44)
[2020-10-08] MEDS ORDERED: HYDROCODONE/APAP 5/325 MG TAB ONE (19:44)
--- NOTE | 2020-10-08 20:03 | RAD REPORT ---
EXAM DESCRIPTION: RAD - Lumbar Spine 3 Views - 10/08/2020 7:42 pm CLINICAL HISTORY: LOWER BACK PAIN Radiculopathy COMPARISON: Lumbar Spine 3 Views dated 03/28/2020 FINDINGS: Vertebral body heights appear maintained. No compression fracture noted. Moderate multilev el degenerative spondylosis is present involving the lumbar spine. There is vacuum disc degeneration present with a mild levoscoliosis noted. Cholecystectomy clips. Aortic atherosclerosis. IMPRESSION: Moderately severe multilevel lumbar degenerative spondylosis.
--- NOTE | 2020-10-08 20:03 | RAD REPORT ---
EXAM DESCRIPTION: RAD - Knee Right 3 View - 10/08/2020 7:44 pm CLINICAL HISTORY: PAIN COMPARISON: Knee Right 3 View dated 03/28/2020 FINDINGS: Moderately severe medial space narrowing is present compatible with osteoarthritis. No acu te fracture or dislocation. A small suprapatellar joint effusion. IMPRESSION: Moderately severe medial compartment osteoarthritis.
--- NOTE | 2020-10-08 20:10 | RAD REPORT ---
EXAM DESCRIPTION: RAD - Knee Left 3 View - 10/08/2020 7:43 pm CLINICAL HISTORY: PAIN COMPARISON: Knee Left 3 View dated 03/28/2020 FINDINGS: Numerous calcified loose bodies are seen in the popliteal joint space. Advanced tricompart mental osteoarthritis. No acute fracture seen.
--- NOTE | 2020-10-08 20:37 | EDPHYS ---
Physician Documentation [facility] Name: Juanis Pyle Age: 80 yrs Sex: Female : 1940 Arrival Date: 10/08/2020 Time: 16:17 Bed 24 Private MD: BRIDGETT Physician Vito Castillo HPI: 10/08 20:12 This 80 yrs old Female presents to ER via Wheelchair with complaints of Back pm1 pain and knee pain. 20:12 The patient presents with pain that is acute. The symptoms are located in the low back. pm1 The pain radiates to the left leg. The problem was sustained history of low back pain with radiation to legs in the past but worse the past 5 days. Patient reports onset after EGD procedure. Onset: The symptoms/episode began/occurred. Modifying factors: The patient symptoms are alleviated by nothing, the patient symptoms are aggravated by weight bearing. Associated signs and symptoms: Pertinent positives: bilateral knee pain. The patient has been recently seen by a physician: with different complaint(s), EGD. Historical: - Allergies: 16:26 No Known Allergies; ll1 - PMHx: 16:26 CVA; Hypertension; Memory problems; rib fx from falls; ll1 - PSHx: 16:26 Cholecystectomy; ll1 - Immunization history:: Flu vaccine is not up to date. - Social history:: Smoking status: Patient reports the use of cigarette tobacco products, smokes one-half pack cigarettes per day. ROS: 20:12 Constitutional: Negative for fever, chills, and weight loss, Cardiovascular: Negative pm1 for chest pain, palpitations, and edema, Respiratory: Negative for shortness of breath, cough, wheezing, and pleuritic chest pain. 20:12 Skin: Negative for injury, rash, and discoloration. 20:12 Neuro: Negative for headache, weakness, numbness, tingling, and seizure. 20:12 Back: Positive for of the low back area, pain. 20:12 MS/extremity: Positive for pain, of the right knee and left knee pain. Exam: 20:12 Constitutional: This is a well developed, well nourished patient who is awake, alert, pm1 and in no acute distress. Head/Face: Normocephalic, atraumatic. 20:12 Neck: Exam negative for acute changes, External neck: is normal, C-spine: vertebral tenderness, is not appreciated, ROM/movement: is normal. 20:12 Back: vertebral tenderness, is appreciated at sacrum. 20:12 Musculoskeletal/extremity: Extremities: grossly normal except: noted in the right knee: tenderness, There is no evidence of decreased ROM, deformity, noted in the left knee: tenderness, no evidence of decreased ROM, deformity. 20:12 Neuro: Exam negative for acute changes, Orientation: is normal, Mentation: is normal, Motor: moves all fours. Vital Signs: 16:23 BP 136 / 67; Pulse 76; Resp 17; Temp 98.0; Pulse Ox 96% on R/A; Weight 81.65 kg; Height ll1 5 ft. 1 in. (154.94 cm); Pain 10/10; 20:00 BP 145 / 73; Pulse 72; Resp 16; Pulse Ox 97% on R/A; jb4 16:23 Body Mass Index 34.01 (81.65 kg, 154.94 cm) ll1 MDM: 19:12 Patient medically screened. pm1 20:35 Data reviewed: vital signs. Data interpreted: Pulse oximetry: on room air is 97 %. pm1 Interpretation: normal. Counseling: I had a detailed discussion with the patient and/or guardian regarding: the historical points, exam findings, and any diagnostic results supporting the discharge/admit diagnosis, radiology results, the need for outpatient follow up, a family practitioner, a orthopedic surgeon, to return to the emergency department if symptoms worsen or persist or if there are any questions or concerns that arise at home. 10/08 19:18 Order name: Knee Right 3 View XRAY; Complete Time: 20:15 pm1 10/08 19:18 Order name: Lumbar Spine (3 Views) XRAY; Complete Time: 20:15 pm1 10/08 19:25 Order name: Knee Left 3 View XRAY; Complete Time: 20:15 pm1 Administered Medications: 20:00 Drug: Lidoderm 5 % (700 mg/patch) 1 patches {Note: Administered 4% Lidocaine patch per jb4 providers instructions to lower back.} Route: Topical; Site: affected area; 20:00 Drug: [place]chanin 5 mg-325 mg 1 tabs Route: PO; jb4 Disposition: 10/09 06:57 Co-signature as Attending Physician, Vito Castillo MD I agree with the assessment and caity plan of care. Disposition: 10/08/20 20:36 Discharged to Home. Impression: Pain in right knee, Pain in left knee, Low back pain. - Condition is Stable. - Discharge Instructions: Arthritis, Back Pain, Adult, Knee Pain. - Prescriptions for Lidoderm 5 % Topical adhesive patch,medicated - apply 1 patch by TRANSDERMAL route once daily As needed 12 hours on and 12 hours off in a 24 hour period; 30 Transdermal Patch. Tramadol 50 mg Oral Tablet - take 1 tablet by ORAL route every 8 hours as needed; 12 tablet. - Medication Reconciliation Form, Thank You Letter, Antibiotic Education, Prescription Opioid Use form. - Follow up: Emergency Department; When: As needed; Reason: Worsening of condition. Follow up: Private Physician; When: 2 - 3 days; Reason: Recheck today's complaints, Continuance of care, Re-evaluation by your physician. - Problem is new. - Symptoms have improved. Signatures: Dispatcher [employer] EDDE Vito Castillo MD MD cha Marinas, Patrick, DOUGLAS TEAM LEAD pm1 Carlos Zuniga, RN RN jb4 Mina Artis mw2 Vick Vidal RN RN ll1 Corrections: (The following items were deleted from the chart) 10/08 21:37 20:36 10/08/2020 20:36 Discharged to Home. Impression: Pain in right knee; Pain in left mw2 knee; Low back pain. Condition is Stable. Forms are Medication Reconciliation Form, Thank You Letter, Antibiotic Education, Prescription Opioid Use. Follow up: Emergency Department; When: As needed; Reason: Worsening of condition. Follow up: Private Physician; When: 2 - 3 days; Reason: Recheck today's complaints, Continuance of care, Re-evaluation by your physician. Problem is new. Symptoms have improved. pm1 10/09 01:55 10/08 19:26 This 80 yrs old Female presents to ER via Wheelchair with pm1 complaints of Hip Pain, Knee pain. pm1
--- NOTE | 2020-10-08 20:37 | ER ---
Nurse's Notes [facility] Name: Juanis Pyle Age: 80 yrs Sex: Female : 1940 Arrival Date: 10/08/2020 Time: 16:17 Bed 24 Private MD: Diagnosis: Pain in right knee;Pain in left knee;Low back pain Presentation: 10/08 16:23 Chief complaint: Patient states: Left lower back pain that radiates all the way down L ll1 leg for 1 week. Started after upper GI last week. Has had about 5 falls due to this pain, started to use a wheelchair. Coronavirus screen: Client denies travel out of the [place] in the last 14 days. At this time, the client does not indicate any symptoms associated with coronavirus-19. Ebola Screen: Patient denies travel to an Ebola-affected area in the 21 days before illness onset. Initial Sepsis Screen: Does the patient meet any 2 criteria? No. Patient's initial sepsis screen is negative. Does the patient have a suspected source of infection? Yes: Bone or joint infection. Risk Assessment: Do you want to hurt yourself or someone else? Patient reports no desire to harm self or others. Onset of symptoms was October 01, 2020. 16:23 Method Of Arrival: Wheelchair ll1 16:23 Acuity: DAVID 3 ll1 Historical: - Allergies: 16:26 No Known Allergies; ll1 - PMHx: 16:26 CVA; Hypertension; Memory problems; rib fx from falls; ll1 - PSHx: 16:26 Cholecystectomy; ll1 - Immunization history:: Flu vaccine is not up to date. - Social history:: Smoking status: Patient reports the use of cigarette tobacco products, smokes one-half pack cigarettes per day. Screenin:05 Abuse screen: Denies threats or abuse. Nutritional screening: No deficits noted. jb4 Tuberculosis screening: No symptoms or risk factors identified. Fall Risk None identified. Assessment: 19:05 General: Appears in no apparent distress. comfortable, Behavior is calm, cooperative. jb4 Pain: Complains of pain in left low back Pain radiates to left leg Pain currently is 10 out of 10 on a pain scale. Quality of pain is described as stabbing. Neuro: Level of Consciousness is awake, alert, obeys commands, Oriented to person, place, time, situation. Cardiovascular: Respiratory: Airway is patent Respiratory effort is even, unlabored, Respiratory pattern is regular, symmetrical. GI: No signs and/or symptoms were reported involving the gastrointestinal system. : No signs and/or symptoms were reported regarding the genitourinary system. EENT: No signs and/or symptoms were reported regarding the EENT system. Derm: Skin is intact, Skin is pink, warm \T\ dry. Musculoskeletal: Circulation, motion, and sensation intact. Range of motion: intact in all extremities. 20:15 Reassessment: Patient appears in no apparent distress at this time. Patient and/or jb4 family updated on plan of care and expected duration. Pain level reassessed. Patient is alert, oriented x 3, equal unlabored respirations, skin warm/dry/pink. Vital Signs: 16:23 BP 136 / 67; Pulse 76; Resp 17; Temp 98.0; Pulse Ox 96% on R/A; Weight 81.65 kg; Height ll1 5 ft. 1 in. (154.94 cm); Pain 10/10; 20:00 BP 145 / 73; Pulse 72; Resp 16; Pulse Ox 97% on R/A; jb4 16:23 Body Mass Index 34.01 (81.65 kg, 154.94 cm) ll1 ED Course: 16:17 Patient arrived in ED. as 16:25 Triage completed. ll1 16:26 Arm band placed on. ll1 19:05 Patient has correct armband on for positive identification. Bed in low position. Call jb4 light in reach. Side rails up X 1. Pulse ox on. NIBP on. 19:11 Daniel Shepherd NP is PHCP. pm1 19:11 Vito Castillo MD is Attending Physician. pm1 19:16 Carlos Zuniga, RN is Primary Nurse. jb4 19:42 Knee Right 3 View XRAY In Process Unspecified. EDMS 19:42 Lumbar Spine (3 Views) XRAY In Process Unspecified. EDMS 19:42 Knee Left 3 View XRAY In Process Unspecified. EDMS Administered Medications: 20:00 Drug: Lidoderm 5 % (700 mg/patch) 1 patches {Note: Administered 4% Lidocaine patch per jb4 providers instructions to lower back.} Route: Topical; Site: affected area; 20:00 Drug: [place] 5 mg-325 mg 1 tabs Route: PO; jb4 Outcome: 20:36 Discharge ordered by . pm1 21:37 Patient left the ED. mw2 Signatures: Dispatcher [employer] Paola Bishop Patrick, SUB ASSEMBLY TEAM WORKER SUB ASSEMBLY TEAM WORKER pm1 Carlos Zuniga RN RN jb4 Mina Artis mw2 Vick Vidal RN RN ll1 Corrections: (The following items were deleted from the chart) 19:31 19:05 Pain: Complains of pain in left low back Pain does not radiate. Pain currently is jb4 10 out of 10 on a pain scale. Quality of pain is described as stabbing, jb4
[2020-10-08 22:40] VITALS: TEMP 98
[2020-10-08 22:41] VITALS: BP 145/73; O2SAT 97
== END 2020-10-08 21:37 | disposition home or self-care (01) ==
LOC: ER 16:15
DX: M25.562 Pain in left knee (principal); M25.561 Pain in right knee; I10 Essential (primary) hypertension; F17.210 Nicotine dependence, cigarettes, uncomplicated; Z86.73 Personal history of transient ischemic attack (TIA), and cerebral infarction without residual deficits
CPT/HCPCS: 72100; 99283